=== PATIENT | female | born 1945 | race Caucasian/White ===

== ENCOUNTER 2017-11-28 16:01 | Inpatient (IN) | payer MEDICARE ==
[~2017-11-28] VITALS: Ht 154.9 cm; Wt 69.1 kg
[~2017-11-28 16:01] MED LIST: CANE-100; NAPR-1154 PO; NORCO10T PO; PRED20TA PO; [UNRECOGNIZED DRUG - REMARK]
[2017-11-28] MEDS ORDERED: ipratropium/albuterol 3ml nebule NEB ONE (16:10)
[2017-11-28] MEDS ORDERED: magnesium 2GM in 50ml NS 50 ML IV ONE (16:10)
[2017-11-28] MEDS ORDERED: methylPREDNISolone sod succ 125mg/2ml vial IV ONE (16:10)
[2017-11-28 16:46] LABS: BASOPHILS % (AUTO) 0.3 % (0-1); EOSINOPHILS # (AUTO) 0.2 X10'3 (0-0.9); EOSINOPHILS % (AUTO) 0.9 % (0-6); HEMATOCRIT 45.7 % (35.0-45.0); HEMOGLOBIN 15.5 g/dl (12.0-16.0); LYMPHOCYTES # (AUTO) 1.3 X10'3 (1.1-4.8); LYMPHOCYTES % (AUTO) 7.6 % (21-51); MEAN CORPUSCULAR HEMOGLOBIN 32.5 PG (27.0-31.0); MEAN CORPUSCULAR VOLUME 95.7 FL (78-98); MEAN PLATELET VOLUME 7.5 FL (7.4-10.4); MONOCYTES # (AUTO) 1.2 X10'3 (0-0.9); MONOCYTES % (AUTO) 7.2 % (2-12); NEUTROPHILS # (AUTO) 13.9 X10'3 (1.8-7.7); PLATELET COUNT 213 X10'3 (140-440); RED BLOOD COUNT 4.77 X10'6 (4.20-5.60); RED CELL DISTRIBUTION WIDTH 13.8 % (11.5-14.5); WHITE BLOOD COUNT 16.5 X10'3 (4.5-11.0)
[2017-11-28 16:57] LABS: INR 1.1 INR; PARTIAL THROMBOPLASTIN TIME 26 SECONDS (22-32); PROTHROMBIN TIME 10.9 SECONDS (9.0-12.0)
[2017-11-28 17:01] LABS: ALANINE AMINOTRANSFERASE 62 U/L (12-78); ALBUMIN 3.3 G/DL (3.4-5.0); ALBUMIN/GLOBULIN RATIO 0.8 (1.1-1.5); ALKALINE PHOSPHATASE 162 IU/L (46-116); ANION GAP 12 (8-16); ASPARTATE AMINO TRANSFERASE 36 U/L (10-37); BILIRUBIN,TOTAL 0.6 MG/DL (0.1-1.0); BLOOD UREA NITROGEN 15 MG/DL (7-18); BUN/CREATININE RATIO 18.8 (6.6-38.0); CALCIUM 9.3 MG/DL (8.5-10.1); CHLORIDE 104 MMOL/L (99-107); GLUCOSE 139 MG/DL (70-104); POTASSIUM 3.3 MMOL/L (3.5-5.1); SODIUM 143 MMOL/L (135-145); TOTAL CARBON DIOXIDE 26.8 MMOL/L (24-32); TOTAL PROTEIN 7.7 G/DL (6.4-8.2); eGFR 71 ML/MIN
[2017-11-28] MEDS ORDERED: ondansetron/PF 4mg/2ml inj IV PRN (18:20)
[2017-11-28] MEDS ORDERED: HYDROmorphone 2mg/ml vial IV PRN (18:20)
[2017-11-28] MEDS ORDERED: magnesium 4gm in 100ml NS 100 ML IV PRN (18:20)
[2017-11-28] MEDS ORDERED: mag hydrox/Alum hydrox/simeth 30ml oral suspension PO PRN (18:20)
[2017-11-28] MEDS ORDERED: albuterol 2.5 MG/3 ML nebule NEB PRN (18:20)
[2017-11-28] MEDS ORDERED: morphine 5 MG/ML injection IV PRN (18:20)
[2017-11-28] MEDS ORDERED: magnesium Cl slow-release 64mg tablet PO PRN (18:20)
[2017-11-28] MEDS ORDERED: potassium Cl 40MEQ/NS 500ml 500 ML IV PRN ×2 (18:20)
[2017-11-28] MEDS ORDERED: acetaminophen 325mg tablet PO PRN (18:20)
[2017-11-28] MEDS ORDERED: potassium Cl 20 mEq SR tablet PO PRN (18:20)
[2017-11-28] MEDS ORDERED: magnesium 2GM in 50ml NS 50 ML IV PRN (18:20)
[2017-11-28] MEDS ORDERED: magnesium hydroxide 30ml (MOM) UD suspension PO PRN (18:20)
[2017-11-28] MEDS ORDERED: LORazepam 2 mg/ml vial IV ONE (18:25)
[2017-11-28] MEDS ORDERED: albuterol 2.5 MG/3 ML nebule NEB ONE ×2 (18:25→21:05)
[2017-11-28 19:04] LABS: MAGNESIUM 1.5 MG/DL (1.5-2.4)
[2017-11-28] MEDS: methylPREDNISolone sod succ 125mg/2ml vial IV SCH (20:00)
[2017-11-28] MEDS: cefTRIAXone 1g/NS 100ml IVPB 100 ML IV SCH (20:47)
[2017-11-28] MEDS: potassium Cl 20 mEq SR tablet PO PRN (20:47)
[2017-11-28] MEDS ORDERED: temazepam 15mg capsule PO PRN (21:00)
[2017-11-28] MEDS ORDERED: potassium 10mEq/100ml NS w/LIDOcaine (10mg/bag) IV ONE (21:05)
[2017-11-28 22:30] VITALS: BP 164/74
[2017-11-29] MEDS ORDERED: LORazepam 1 MG tablet PO ONE (00:30)
[2017-11-29] MEDS: potassium Cl 20 mEq SR tablet PO PRN (01:38)
[2017-11-29] MEDS: HYDROcodone/acetaminophen 5mg/325mg tablet PO PRN ×2 (01:38→14:17)
[2017-11-29] MEDS: methylPREDNISolone sod succ 125mg/2ml vial IV SCH ×4 (01:39→20:26)
[2017-11-29] MEDS ORDERED: FLU VACC QS2017-18 36MOS UP/PF 60 MCG/0.5 ML SYRINGE IMVAC ONE (06:30)
[2017-11-29] MEDS ORDERED: pneumococcal 23-VAL P-sac vacc 25 mcg/0.5ml vial IMVAC ONE (06:30)
[2017-11-29 07:33] LABS: BASOPHILS % (AUTO) 0 % (0-1); EOSINOPHILS % (AUTO) 0 % (0-6); HEMATOCRIT 43.2 % (35.0-45.0); HEMOGLOBIN 14.9 g/dl (12.0-16.0); LYMPHOCYTES % (AUTO) 6.2 % (21-51); MEAN CORPUSCULAR HGB CONC 34.4 % (33.0-36.5); MEAN PLATELET VOLUME 7.9 FL (7.4-10.4); MONOCYTES # (AUTO) 0.2 X10'3 (0-0.9); MONOCYTES % (AUTO) 1.4 % (2-12); NEUTROPHILS # (AUTO) 15.2 X10'3 (1.8-7.7); NEUTROPHILS % (AUTO) 92.4 % (42-75); PLATELET COUNT 199 X10'3 (140-440); RED CELL DISTRIBUTION WIDTH 14.4 % (11.5-14.5); WHITE BLOOD COUNT 16.5 X10'3 (4.5-11.0)
[2017-11-29 07:46] LABS: ALBUMIN 2.8 G/DL (3.4-5.0); ANION GAP 8 (8-16); BLOOD UREA NITROGEN 18 MG/DL (7-18); BUN/CREATININE RATIO 25.7 (6.6-38.0); CHLORIDE 107 MMOL/L (99-107); GLUCOSE 138 MG/DL (70-104); POTASSIUM 4.8 MMOL/L (3.5-5.1); SODIUM 144 MMOL/L (135-145); TOTAL CARBON DIOXIDE 29.2 MMOL/L (24-32); eGFR 83 ML/MIN
[2017-11-29] MEDS ORDERED: cefTRIAXone 1g/NS 100ml IVPB 100 ML IV SCH (08:00)
[2017-11-29] MEDS ORDERED: enoxaparin 40mg/0.4ml syringe SQ SCH (08:00)
[2017-11-29] MEDS: K and/or MAG REPLACEMENT MC SCH (08:00)
[2017-11-29] MEDS: enoxaparin 40mg/0.4ml syringe SUBCUT SCH (08:47)
[2017-11-29 10:00] VITALS: BP 151/71
[2017-11-29] MEDS ORDERED: MONT10TA24 PO (15:18)
[2017-11-29] MEDS ORDERED: iohexol 350MG/ML 100ml bottle IV ONE (15:22)
[2017-11-29] MEDS ORDERED: SPIR100T3 PO (15:23)
[2017-11-29] MEDS ORDERED: AMLO-94 PO (15:24)
[2017-11-29] MEDS ORDERED: VALS40TA2 PO (15:25)
[2017-11-29] MEDS ORDERED: TIOT4MIS3 (15:30)
[2017-11-29] MEDS ORDERED: FLUT16SP2 BOTHNARES (15:32)
[2017-11-29 18:00] VITALS: BP 154/83
[2017-11-29] MEDS: azithromycin/NS 500mg/250ml 250 ML IV SCH (18:01)
[2017-11-29] MEDS: lactobacillus rhamnosus 10,000 MMU CELLS/CAPSULE PO SCH (18:01)
[2017-11-29] MEDS: LORazepam 0.5 MG tablet PO PRN (18:50)
[2017-11-29] MEDS: albuterol 2.5 MG/3 ML nebule NEB SCH ×2 (19:56→23:39)
[2017-11-29] MEDS: cefTRIAXone 1g/NS 100ml IVPB 100 ML IV SCH (20:26)
[2017-11-29 22:00] VITALS: BP 142/73
[2017-11-30] MEDS: methylPREDNISolone sod succ 125mg/2ml vial IV SCH ×4 (02:29→20:44)
[2017-11-30] MEDS: albuterol 2.5 MG/3 ML nebule NEB SCH ×6 (04:03→23:06)
[2017-11-30 06:00] VITALS: BP 139/75
[2017-11-30 06:20] LABS: BASOPHILS % (AUTO) 0 % (0-1); EOSINOPHILS # (AUTO) 0.2 X10'3 (0-0.9); EOSINOPHILS % (AUTO) 1.3 % (0-6); HEMATOCRIT 41.7 % (35.0-45.0); HEMOGLOBIN 14.6 g/dl (12.0-16.0); LYMPHOCYTES % (AUTO) 5.8 % (21-51); MEAN CORPUSCULAR HEMOGLOBIN 33.2 PG (27.0-31.0); MEAN CORPUSCULAR HGB CONC 34.9 % (33.0-36.5); MEAN CORPUSCULAR VOLUME 95.1 FL (78-98); MEAN PLATELET VOLUME 7.9 FL (7.4-10.4); MONOCYTES # (AUTO) 0.3 X10'3 (0-0.9); MONOCYTES % (AUTO) 1.9 % (2-12); NEUTROPHILS # (AUTO) 15.4 X10'3 (1.8-7.7); PLATELET COUNT 181 X10'3 (140-440); RED BLOOD COUNT 4.38 X10'6 (4.20-5.60); RED CELL DISTRIBUTION WIDTH 14.4 % (11.5-14.5); WHITE BLOOD COUNT 16.9 X10'3 (4.5-11.0)
[2017-11-30 07:27] LABS: ALBUMIN 2.8 G/DL (3.4-5.0); ANION GAP 11 (8-16); BLOOD UREA NITROGEN 21 MG/DL (7-18); CALCIUM 8.7 MG/DL (8.5-10.1); CHLORIDE 105 MMOL/L (99-107); GLUCOSE 208 MG/DL (70-104); MAGNESIUM 1.8 MG/DL (1.5-2.4); POTASSIUM 4.1 MMOL/L (3.5-5.1); SODIUM 142 MMOL/L (135-145); TOTAL CARBON DIOXIDE 25.7 MMOL/L (24-32); eGFR 83 ML/MIN
[2017-11-30] MEDS: azithromycin/NS 500mg/250ml 250 ML IV SCH (07:54)
[2017-11-30] MEDS: lactobacillus rhamnosus 10,000 MMU CELLS/CAPSULE PO SCH ×2 (07:55→17:41)
[2017-11-30] MEDS: K and/or MAG REPLACEMENT MC SCH (08:00)
[2017-11-30] MEDS: enoxaparin 40mg/0.4ml syringe SUBCUT SCH (08:05)
[2017-11-30 10:30] VITALS: BP 146/63
[2017-11-30 18:30] VITALS: BP 155/86
[2017-11-30] MEDS: HYDROcodone/acetaminophen 5mg/325mg tablet PO PRN (18:45)
[2017-11-30] MEDS: cefTRIAXone 1g/NS 100ml IVPB 100 ML IV SCH (20:44)
[2017-11-30] MEDS: LORazepam 0.5 MG tablet PO PRN (21:54)
[2017-11-30 22:00] VITALS: BP 146/64
[2017-12-01] MEDS: methylPREDNISolone sod succ 125mg/2ml vial IV SCH ×3 (01:36→14:15)
[2017-12-01] MEDS: albuterol 2.5 MG/3 ML nebule NEB SCH ×5 (03:00→20:39)
[2017-12-01 06:00] VITALS: BP 143/67
[2017-12-01] MEDS: lactobacillus rhamnosus 10,000 MMU CELLS/CAPSULE PO SCH ×2 (08:05→17:51)
[2017-12-01] MEDS: azithromycin/NS 500mg/250ml 250 ML IV SCH (08:06)
[2017-12-01] MEDS: enoxaparin 40mg/0.4ml syringe SUBCUT SCH (08:06)
[2017-12-01 09:13] LABS: BASOPHILS % (AUTO) 0 % (0-1); EOSINOPHILS # (AUTO) 0.1 X10'3 (0-0.9); EOSINOPHILS % (AUTO) 0.9 % (0-6); HEMATOCRIT 44.2 % (35.0-45.0); HEMOGLOBIN 14.9 g/dl (12.0-16.0); LYMPHOCYTES # (AUTO) 0.9 X10'3 (1.1-4.8); MEAN CORPUSCULAR HEMOGLOBIN 32.7 PG (27.0-31.0); MEAN CORPUSCULAR HGB CONC 33.7 % (33.0-36.5); MEAN CORPUSCULAR VOLUME 97.1 FL (78-98); MEAN PLATELET VOLUME 7.9 FL (7.4-10.4); MONOCYTES # (AUTO) 0.4 X10'3 (0-0.9); MONOCYTES % (AUTO) 2.6 % (2-12); NEUTROPHILS # (AUTO) 12.9 X10'3 (1.8-7.7); NEUTROPHILS % (AUTO) 90.5 % (42-75); PLATELET COUNT 198 X10'3 (140-440); RED BLOOD COUNT 4.55 X10'6 (4.20-5.60); RED CELL DISTRIBUTION WIDTH 14.1 % (11.5-14.5); WHITE BLOOD COUNT 14.3 X10'3 (4.5-11.0)
[2017-12-01 09:18] LABS: ALBUMIN 2.8 G/DL (3.4-5.0); ANION GAP 6 (8-16); BLOOD UREA NITROGEN 20 MG/DL (7-18); BUN/CREATININE RATIO 33.3 (6.6-38.0); CALCIUM 8.9 MG/DL (8.5-10.1); CHLORIDE 105 MMOL/L (99-107); GLUCOSE 172 MG/DL (70-104); POTASSIUM 4.3 MMOL/L (3.5-5.1); SODIUM 142 MMOL/L (135-145); TOTAL CARBON DIOXIDE 30.7 MMOL/L (24-32); eGFR > 90 ML/MIN
[2017-12-01] MEDS: K and/or MAG REPLACEMENT MC SCH (09:35)
[2017-12-01 10:00] VITALS: BP 139/69
[2017-12-01 18:30] VITALS: BP 146/52
[2017-12-01] MEDS: LORazepam 0.5 MG tablet PO PRN (19:10)
[2017-12-01] MEDS: methylPREDNISolone sod succ/PF 40mg inj. IV SCH (20:42)
[2017-12-01] MEDS: cefTRIAXone 1g/NS 100ml IVPB 100 ML IV SCH (20:43)
[2017-12-01 22:00] VITALS: BP 135/69
[2017-12-02] MEDS: albuterol 2.5 MG/3 ML nebule NEB SCH ×6 (00:21→23:07)
[2017-12-02] MEDS: methylPREDNISolone sod succ/PF 40mg inj. IV SCH ×3 (01:52→13:51)
[2017-12-02 06:00] VITALS: BP 132/82
[2017-12-02 06:01] LABS: BASOPHILS % (AUTO) 0 % (0-1); EOSINOPHILS % (AUTO) 0 % (0-6); HEMATOCRIT 41.5 % (35.0-45.0); HEMOGLOBIN 14.3 g/dl (12.0-16.0); LYMPHOCYTES # (AUTO) 0.5 X10'3 (1.1-4.8); LYMPHOCYTES % (AUTO) 5.1 % (21-51); MEAN CORPUSCULAR HEMOGLOBIN 32.9 PG (27.0-31.0); MEAN CORPUSCULAR HGB CONC 34.4 % (33.0-36.5); MEAN CORPUSCULAR VOLUME 95.5 FL (78-98); MEAN PLATELET VOLUME 7.6 FL (7.4-10.4); MONOCYTES # (AUTO) 0.3 X10'3 (0-0.9); MONOCYTES % (AUTO) 2.4 % (2-12); NEUTROPHILS # (AUTO) 9.9 X10'3 (1.8-7.7); NEUTROPHILS % (AUTO) 92.5 % (42-75); PLATELET COUNT 162 X10'3 (140-440); RED BLOOD COUNT 4.34 X10'6 (4.20-5.60); RED CELL DISTRIBUTION WIDTH 13.9 % (11.5-14.5); WHITE BLOOD COUNT 10.7 X10'3 (4.5-11.0)
[2017-12-02 06:25] LABS: ALBUMIN 2.5 G/DL (3.4-5.0); ANION GAP 6 (8-16); BLOOD UREA NITROGEN 21 MG/DL (7-18); BUN/CREATININE RATIO 26.3 (6.6-38.0); CALCIUM 8.4 MG/DL (8.5-10.1); CHLORIDE 105 MMOL/L (99-107); GLUCOSE 185 MG/DL (70-104); MAGNESIUM 2.1 MG/DL (1.5-2.4); POTASSIUM 4.5 MMOL/L (3.5-5.1); SODIUM 141 MMOL/L (135-145); TOTAL CARBON DIOXIDE 29.6 MMOL/L (24-32); eGFR 71 ML/MIN
[2017-12-02] MEDS: K and/or MAG REPLACEMENT MC SCH (08:00)
[2017-12-02] MEDS: lactobacillus rhamnosus 10,000 MMU CELLS/CAPSULE PO SCH ×2 (08:19→17:49)
[2017-12-02] MEDS: enoxaparin 40mg/0.4ml syringe SUBCUT SCH (08:21)
[2017-12-02] MEDS: azithromycin/NS 500mg/250ml 250 ML IV SCH (08:24)
[2017-12-02 10:00] VITALS: BP 132/92
[2017-12-02 14:00] VITALS: BP 109/68
[2017-12-02 18:30] VITALS: BP 123/90
[2017-12-02] MEDS: LORazepam 0.5 MG tablet PO PRN (20:35)
[2017-12-02] MEDS: cefTRIAXone 1g/NS 100ml IVPB 100 ML IV SCH (20:35)
[2017-12-02 22:00] VITALS: BP 146/75
[2017-12-03] MEDS: albuterol 2.5 MG/3 ML nebule NEB SCH ×3 (02:47→11:45)
[2017-12-03 06:00] VITALS: BP 147/73
[2017-12-03] MEDS: K and/or MAG REPLACEMENT MC SCH (07:38)
[2017-12-03] MEDS: lactobacillus rhamnosus 10,000 MMU CELLS/CAPSULE PO SCH (07:40)
[2017-12-03] MEDS: enoxaparin 40mg/0.4ml syringe SUBCUT SCH (07:41)
[2017-12-03] MEDS ORDERED: azithromycin 250mg tablet PO SCH (08:00)
[2017-12-03] MEDS ORDERED: predniSONE 20 mg tablet PO SCH (08:00)
[2017-12-03 10:00] VITALS: BP 172/57
[2017-12-03] MEDS ORDERED: AZI25OT PO (10:44)
[2017-12-03] MEDS ORDERED: PRED20TA PO (10:44)
[2017-12-03] MEDS ORDERED: ALBU2.5V7 NEB (10:50)
== END 2017-12-03 13:43 | disposition home health service (06) | DRG 871 ==
LOC: ER 16:05 → ED HOLD 18:16 → EDBEDREQTM 21:29 → ORTHO 4S 22:23
PROVIDERS: ADMIT Internal Medicine; ATTEND Family Medicine
PROC: B32T1ZZ Computerized Tomography (CT Scan) of Left Pulmonary Artery using Low Osmolar Contrast (ICD-10-PCS; principal; 2017-11-29)
PROC: B3201ZZ Computerized Tomography (CT Scan) of Thoracic Aorta using Low Osmolar Contrast (ICD-10-PCS; 2017-11-29)
PROC: B32S1ZZ Computerized Tomography (CT Scan) of Right Pulmonary Artery using Low Osmolar Contrast (ICD-10-PCS; 2017-11-29)
DX: A41.9 Sepsis, unspecified organism (principal); J18.9 Pneumonia, unspecified organism; J96.21 Acute and chronic respiratory failure with hypoxia; J44.0 Chronic obstructive pulmonary disease with (acute) lower respiratory infection; J44.1 Chronic obstructive pulmonary disease with (acute) exacerbation; E78.00 Pure hypercholesterolemia, unspecified; M19.90 Unspecified osteoarthritis, unspecified site; E87.6 Hypokalemia; R73.9 Hyperglycemia, unspecified; F41.9 Anxiety disorder, unspecified; I10 Essential (primary) hypertension; T38.0X5A Adverse effect of glucocorticoids and synthetic analogues, initial encounter; F17.210 Nicotine dependence, cigarettes, uncomplicated; Z90.710 Acquired absence of both cervix and uterus; Z88.6 Allergy status to analgesic agent; Y92.89 Other specified places as the place of occurrence of the external cause
CPT/HCPCS: 36415; 71045; 71275; 80048; 80053; 83735; 85025; 85610; 85730; 87070; 90732; 93005; 94640; 94760; 96365; 96375; 99285; J0456; J0696; J1650; J2060; J2920; J2930; J3475; J7030; J7512; Q2037; Q9967

== ENCOUNTER 2018-01-07 09:13 | Inpatient (IN) | payer MEDICARE ==
[~2018-01-07] VITALS: Ht 154.9 cm; Wt 78.8 kg
[~2018-01-07 09:13] MED LIST changes: +ALBU2.5V7 NEB; +AMLO-94 PO; +AZI25OT PO; +FLUT16SP2 BOTHNARES; +MONT10TA24 PO; +SPIR100T3 PO; +TIOT4MIS3; +VALS40TA2 PO; -[UNRECOGNIZED DRUG - REMARK]; +etomidate 2mg/ml inj. ONE
[2018-01-07] MEDS ORDERED: normal saline 1000ML IV soln IVB ONE ×2 (09:35→18:20)
[2018-01-07] MEDS ORDERED: normal saline 1000ml 1,000 ML IV ONE (09:35)
[2018-01-07] MEDS ORDERED: methylPREDNISolone sod succ 125mg/2ml vial IV ONE (09:35)
[2018-01-07] MEDS ORDERED: albuterol 2.5 MG/3 ML nebule NEB ONE (09:35)
[2018-01-07] MEDS ORDERED: PRED10TA PO (09:40)
[2018-01-07] MEDS ORDERED: DOXY-200 PO (09:40)
[2018-01-07] MEDS ORDERED: AMLO10TA4 PO (09:40)
[2018-01-07 09:51] LABS: BASOPHILS % (AUTO) 0.3 % (0-1); EOSINOPHILS # (AUTO) 0.4 X10'3 (0-0.9); EOSINOPHILS % (AUTO) 3.3 % (0-6); HEMOGLOBIN 15.4 g/dl (12.0-16.0); LYMPHOCYTES # (AUTO) 1.6 X10'3 (1.1-4.8); LYMPHOCYTES % (AUTO) 11.9 % (21-51); MEAN CORPUSCULAR VOLUME 94.2 FL (78-98); MEAN PLATELET VOLUME 7.5 FL (7.4-10.4); MONOCYTES # (AUTO) 0.4 X10'3 (0-0.9); MONOCYTES % (AUTO) 3.1 % (2-12); NEUTROPHILS # (AUTO) 11.1 X10'3 (1.8-7.7); NEUTROPHILS % (AUTO) 81.4 % (42-75); PLATELET COUNT 199 X10'3 (140-440); RED BLOOD COUNT 4.67 X10'6 (4.20-5.60); RED CELL DISTRIBUTION WIDTH 13.7 % (11.5-14.5); WHITE BLOOD COUNT 13.6 X10'3 (4.5-11.0)
[2018-01-07] MEDS ORDERED: nitroGLYCERIN 0.2mg/hour patch TD ONE (09:55)
[2018-01-07] MEDS ORDERED: amLODIPine 5mg tablet PO ONE (09:55)
[2018-01-07 09:58] LABS: CHLORIDE 103 MMOL/L (99-107); POTASSIUM 4.1 MMOL/L (3.5-5.1); SODIUM 142 MMOL/L (135-145)
[2018-01-07 10:01] LABS: PARTIAL THROMBOPLASTIN TIME 29 SECONDS (22-32); PROTHROMBIN TIME 10.7 SECONDS (9.0-12.0)
[2018-01-07] MEDS ORDERED: proCHLORperazine 10 MG/2 ml inj IV ONE (10:05)
[2018-01-07 10:11] LABS: ALANINE AMINOTRANSFERASE 47 U/L (12-78); ALBUMIN 3.7 G/DL (3.4-5.0); ALBUMIN/GLOBULIN RATIO 0.8 (1.1-1.5); ALKALINE PHOSPHATASE 136 IU/L (46-116); ANION GAP 8 (8-16); ASPARTATE AMINO TRANSFERASE 31 U/L (10-37); BILIRUBIN,TOTAL 0.7 MG/DL (0.1-1.0); BLOOD UREA NITROGEN 13 MG/DL (7-18); CALCIUM 9.6 MG/DL (8.5-10.1); CREATININE 0.62 MG/DL (0.40-0.90); GLUCOSE 177 MG/DL (70-104); MAGNESIUM 1.8 MG/DL (1.5-2.4); PHOSPHORUS 4.5 MG/DL (2.3-4.5); TOTAL CARBON DIOXIDE 31.3 MMOL/L (24-32); TOTAL PROTEIN 8.3 G/DL (6.4-8.2); eGFR > 90 ML/MIN
[2018-01-07] MEDS ORDERED: albuterol 2.5 MG/3 ML nebule CONTNEB PRN (10:20)
[2018-01-07 10:25] LABS: ABG BASE EXCESS -1.4 mmol/L (-2.0-3.0); ABG HCO3 26.8 mmol/L (22.0-26.0); ABG OXYGEN SATURATION 96.4 % (95-98); ABG PCO2 (T) 59.2 mmHg (32.0-45.0); ABG PH (T) 7.274 (7.350-7.450); ABG PO2 (T) 95.8 mmHg (83-108); FCOHb 0.5 % (0.5-1.5); FLOW 15 L/min; FMetHb 0.2 % (0.3-1.12); FO2Hb 95.7 % (94-100); TOTAL HEMOGLOBIN 15.8 G/dl (12.0-16.0)
[2018-01-07] MEDS ORDERED: midazolam 2 mg/2 ml injection IV ONE (10:35)
[2018-01-07] MEDS: midazolam 100mg in NS 100ml 100 ML IV PRN ×2 (11:05→12:20)
[2018-01-07] MEDS ORDERED: fentaNYL/NS/PF 2,500mcg/250ml 250 ML IV PRN (11:15)
[2018-01-07 11:20] LABS: CLARITY,URINE CLOUDY (Clear); COLOR,URINE YELLOW (Yellow); GLUCOSE, URINE NEGATIVE (Neg); KETONES,URINE NEGATIVE (Neg); LEUKOCYTE ESTERASE ,URINE NEGATIVE (Neg); NITRITES, URINE NEGATIVE (Neg); OCCULT BLOOD,URINE LARGE (Neg); PH,URINE 5.5 (4.8-8.0); PROTEIN,URINE >=300 mg/dl (Neg); UROBILINOGEN,URINE 0.2 E.U/dL (0.2-1.0)
[2018-01-07] MEDS ORDERED: azithromycin/NS 500mg/250ml 250 ML IV ONE (11:20)
[2018-01-07] MEDS ORDERED: CefTRIAXone 2gm/NS 100ml IVPB 100 ML IV ONE (11:20)
[2018-01-07 11:21] LABS: UA COLLECTION TYPE CLN CATCH MIDSTREAM
[2018-01-07] MEDS ORDERED: acetaminophen 325mg tablet PO PRN (11:30)
[2018-01-07] MEDS ORDERED: sodium phosphate inj. 30 MMOL in dextrose 5%-water 250 ML IV PRN (11:30)
[2018-01-07] MEDS ORDERED: sodium phosphate inj. 15 MMOL in dextrose 5%-water 150 ML IV PRN (11:30)
[2018-01-07] MEDS ORDERED: midazolam 100mg in NS 100ml 100 ML IV PRN (11:30)
[2018-01-07] MEDS ORDERED: magnesium hydroxide 30ml (MOM) UD suspension PO PRN (11:30)
[2018-01-07] MEDS ORDERED: magnesium Cl slow-release 64mg tablet PO PRN (11:30)
[2018-01-07] MEDS ORDERED: magnesium 4gm in 100ml NS 100 ML IV PRN (11:30)
[2018-01-07] MEDS ORDERED: bisacodyl 10mg suppository rectal RC PRN (11:30)
[2018-01-07] MEDS ORDERED: magnesium 2GM in 50ml NS 50 ML IV PRN (11:30)
[2018-01-07] MEDS ORDERED: potassium Cl 20 mEq SR tablet PO PRN ×2 (11:30)
[2018-01-07] MEDS ORDERED: ipratropium/albuterol 3ml nebule NEB PRN ×2 (11:30)
[2018-01-07] MEDS ORDERED: Neutra Phos packet PO PRN (11:30)
[2018-01-07] MEDS ORDERED: FENTANYL-0.9 % NACL/PF 100 ML IV PRN (11:30)
[2018-01-07] MEDS ORDERED: fentaNYL/PF 50MCG/1 ML 2ML syringe ONE (11:32)
[2018-01-07 11:39] LABS: MUCUS STRANDS FEW /LPF (Neg); SQUAMOUS EPITHELIAL CELL,UR MODERATE /LPF (FEW)
[2018-01-07] MEDS ORDERED: FENTANYL-0.9 % NACL/PF 100 ML IV ONE (11:39)
[2018-01-07 11:45] LABS: BACTERIA,URINE 4+ /HPF (Neg); WBC,URINE 0-4 /HPF (0-4)
[2018-01-07] MEDS ORDERED: levoFLOXACIN-Levaquin 500mg/D5 100 ML IV ONE (11:45)
[2018-01-07] MEDS: normal saline 1000ml 1,000 ML IV SCH (11:48)
[2018-01-07] MEDS: FENTANYL-0.9 % NACL/PF 100 ML IV PRN ×4 (11:52→20:05)
[2018-01-07] MEDS: methylPREDNISolone sod succ 125mg/2ml vial IV SCH ×2 (14:09→21:23)
[2018-01-07] MEDS: ipratropium/albuterol 3ml nebule NEB SCH ×3 (15:00→22:48)
[2018-01-07] MEDS: heparin, porcine 5000 units/ml vial SQ SCH (21:24)
[2018-01-07 22:00] VITALS: BP 132/59
[2018-01-07 23:00] VITALS: BP 118/58
[2018-01-07 23:50] VITALS: BP 109/45
[2018-01-08] VITALS (24 sets, daily range): BP systolic 97–144; BP diastolic 44–80
[2018-01-08] MEDS: cefepime 1GM/NS ADD-VANTAGE 100 ML IV SCH ×3 (00:48→15:15)
[2018-01-08] MEDS: normal saline 1000ml 1,000 ML IV SCH ×2 (00:48→14:10)
[2018-01-08] MEDS: methylPREDNISolone sod succ 125mg/2ml vial IV SCH ×4 (01:35→20:42)
[2018-01-08 02:26] LABS: ABG BASE EXCESS -2.7 mmol/L (-2.0-3.0); ABG HCO3 21.8 mmol/L (22.0-26.0); ABG OXYGEN SATURATION 90.3 % (95-98); ABG PCO2 (T) 36.5 mmHg (32.0-45.0); ABG PH (T) 7.392 (7.350-7.450); ABG PO2 (T) 59.7 mmHg (83-108); ALLEN'S TEST Positive; FCOHb 0.1 % (0.5-1.5); FMetHb 0.2 % (0.3-1.12); MINUTE VOLUME 7 L/min; PATIENT TEMPERATURE 36.7; PEEP 5 cm H2O; RESPIRATORY RATE 16 b/min; RESPIRATORY RATE (OBSERVED) 18 b/min; TOTAL HEMOGLOBIN 13.3 G/dl (12.0-16.0)
[2018-01-08] MEDS: ipratropium/albuterol 3ml nebule NEB SCH ×6 (03:47→23:05)
[2018-01-08 05:17] LABS: BASOPHILS % (AUTO) 0.1 % (0-1); EOSINOPHILS # (AUTO) 0.2 X10'3 (0-0.9); EOSINOPHILS % (AUTO) 1.5 % (0-6); HEMATOCRIT 37.3 % (35.0-45.0); HEMOGLOBIN 13.1 g/dl (12.0-16.0); LYMPHOCYTES # (AUTO) 0.9 X10'3 (1.1-4.8); LYMPHOCYTES % (AUTO) 8.8 % (21-51); MEAN CORPUSCULAR HEMOGLOBIN 33.3 PG (27.0-31.0); MEAN CORPUSCULAR HGB CONC 35.2 % (33.0-36.5); MEAN CORPUSCULAR VOLUME 94.6 FL (78-98); MEAN PLATELET VOLUME 7.9 FL (7.4-10.4); MONOCYTES # (AUTO) 0.1 X10'3 (0-0.9); MONOCYTES % (AUTO) 1.1 % (2-12); NEUTROPHILS # (AUTO) 9.5 X10'3 (1.8-7.7); NEUTROPHILS % (AUTO) 88.5 % (42-75); PLATELET COUNT 155 X10'3 (140-440); RED BLOOD COUNT 3.94 X10'6 (4.20-5.60); RED CELL DISTRIBUTION WIDTH 13.6 % (11.5-14.5); WHITE BLOOD COUNT 10.7 X10'3 (4.5-11.0)
[2018-01-08 05:33] LABS: ALANINE AMINOTRANSFERASE 36 U/L (12-78); ALBUMIN 2.9 G/DL (3.4-5.0); ALBUMIN/GLOBULIN RATIO 0.7 (1.1-1.5); ALKALINE PHOSPHATASE 99 IU/L (46-116); ANION GAP 13 (8-16); ASPARTATE AMINO TRANSFERASE 22 U/L (10-37); BILIRUBIN,TOTAL 0.4 MG/DL (0.1-1.0); BLOOD UREA NITROGEN 24 MG/DL (7-18); BUN/CREATININE RATIO 27.9 (6.6-38.0); CALCIUM 8.6 MG/DL (8.5-10.1); CHLORIDE 110 MMOL/L (99-107); CREATININE 0.86 MG/DL (0.40-0.90); GLUCOSE 152 MG/DL (70-104); MAGNESIUM 1.6 MG/DL (1.5-2.4); PHOSPHORUS 3.8 MG/DL (2.3-4.5); POTASSIUM 4.1 MMOL/L (3.5-5.1); SODIUM 146 MMOL/L (135-145); TOTAL CARBON DIOXIDE 23.4 MMOL/L (24-32); TOTAL PROTEIN 6.8 G/DL (6.4-8.2); eGFR 65 ML/MIN
[2018-01-08] MEDS: pantoprazole 40 MG vial IV SCH (07:16)
[2018-01-08] MEDS: heparin, porcine 5000 units/ml vial SQ SCH ×2 (07:18→20:43)
[2018-01-08] MEDS: levoFLOXACIN-Levaquin 500mg/D5 100 ML IV SCH (07:20)
[2018-01-08] MEDS: FENTANYL-0.9 % NACL/PF 100 ML IV PRN (07:31)
[2018-01-08] MEDS: ondansetron/PF 4mg/2ml inj IV PRN (08:55)
[2018-01-08] MEDS ORDERED: furosemide 20 MG/2 ML vial IV ONE (10:25)
[2018-01-08] MEDS ORDERED: normal saline 1000ml 1,000 ML IV ONE (10:25)
[2018-01-08] MEDS ORDERED: [UNRECOGNIZED DRUG - OTHER] SCH (11:20)
[2018-01-08] MEDS ORDERED: OLODATEROL HCL SCH (11:20)
[2018-01-08] MEDS ORDERED: TIOTROPIUM BR SCH (11:20)
[2018-01-08 13:33] LABS: PREALBUMIN 23.3 MG/DL (19-36)
[2018-01-08] MEDS: mineral oil/petrolatum ophthal oint EACHEYE SCH ×2 (15:13→20:44)
[2018-01-08] MEDS: montelukast 10mg tablet PO SCH (20:43)
[2018-01-08] MEDS: lactobacillus rhamnosus 10,000 MMU CELLS/CAPSULE PO SCH (20:43)
[2018-01-09] VITALS (23 sets, daily range): BP systolic 116–193; BP diastolic 51–96
[2018-01-09] MEDS: cefepime 1GM/NS ADD-VANTAGE 100 ML IV SCH ×3 (00:02→16:59)
[2018-01-09] MEDS: mineral oil/petrolatum ophthal oint EACHEYE SCH ×4 (02:31→20:00)
[2018-01-09] MEDS: methylPREDNISolone sod succ 125mg/2ml vial IV SCH ×4 (02:31→20:40)
[2018-01-09] MEDS: ipratropium/albuterol 3ml nebule NEB SCH ×5 (03:29→21:17)
[2018-01-09] MEDS: normal saline 1000ml 1,000 ML IV SCH ×2 (03:30→16:50)
[2018-01-09 04:06] LABS: ABG BASE EXCESS -1.8 mmol/L (-2.0-3.0); ABG HCO3 23.4 mmol/L (22.0-26.0); ABG OXYGEN SATURATION 95.1 % (95-98); ABG PCO2 (T) 39.8 mmHg (32.0-45.0); ABG PH (T) 7.384 (7.350-7.450); ABG PO2 (T) 76.2 mmHg (83-108); ALLEN'S TEST Positive; FCOHb 0.3 % (0.5-1.5); FMetHb 0.1 % (0.3-1.12); FO2Hb 94.7 % (94-100); MINUTE VOLUME 8 L/min; PATIENT TEMPERATURE 36.2; PEEP 5 cm H2O; RESPIRATORY RATE 18 b/min; RESPIRATORY RATE (OBSERVED) 18 b/min; TOTAL HEMOGLOBIN 12.9 G/dl (12.0-16.0)
[2018-01-09 05:56] LABS: BASOPHILS % (AUTO) 0 % (0-1); EOSINOPHILS # (AUTO) 0.2 X10'3 (0-0.9); EOSINOPHILS % (AUTO) 1.6 % (0-6); HEMATOCRIT 36.2 % (35.0-45.0); HEMOGLOBIN 12.7 g/dl (12.0-16.0); LYMPHOCYTES # (AUTO) 0.8 X10'3 (1.1-4.8); LYMPHOCYTES % (AUTO) 5.3 % (21-51); MEAN CORPUSCULAR HEMOGLOBIN 33.2 PG (27.0-31.0); MEAN PLATELET VOLUME 8.1 FL (7.4-10.4); MONOCYTES # (AUTO) 0.4 X10'3 (0-0.9); MONOCYTES % (AUTO) 2.8 % (2-12); NEUTROPHILS # (AUTO) 13.5 X10'3 (1.8-7.7); NEUTROPHILS % (AUTO) 90.3 % (42-75); PLATELET COUNT 154 X10'3 (140-440); RED BLOOD COUNT 3.81 X10'6 (4.20-5.60); RED CELL DISTRIBUTION WIDTH 14.2 % (11.5-14.5); WHITE BLOOD COUNT 14.9 X10'3 (4.5-11.0)
[2018-01-09 06:23] LABS: ALANINE AMINOTRANSFERASE 33 U/L (12-78); ALBUMIN 2.9 G/DL (3.4-5.0); ALBUMIN/GLOBULIN RATIO 0.8 (1.1-1.5); ALKALINE PHOSPHATASE 83 IU/L (46-116); ANION GAP 9 (8-16); ASPARTATE AMINO TRANSFERASE 15 U/L (10-37); BILIRUBIN,TOTAL 0.3 MG/DL (0.1-1.0); BLOOD UREA NITROGEN 40 MG/DL (7-18); BUN/CREATININE RATIO 48.8 (6.6-38.0); CALCIUM 8.4 MG/DL (8.5-10.1); CHLORIDE 109 MMOL/L (99-107); CREATININE 0.82 MG/DL (0.40-0.90); GLUCOSE 129 MG/DL (70-104); MAGNESIUM 1.9 MG/DL (1.5-2.4); PHOSPHORUS 3.7 MG/DL (2.3-4.5); POTASSIUM 4.2 MMOL/L (3.5-5.1); SODIUM 142 MMOL/L (135-145); TOTAL CARBON DIOXIDE 23.8 MMOL/L (24-32); TOTAL PROTEIN 6.7 G/DL (6.4-8.2); eGFR 69 ML/MIN
[2018-01-09] MEDS: pantoprazole 40 MG vial IV SCH (07:07)
[2018-01-09] MEDS: amLODIPine 5mg tablet PO SCH (07:08)
[2018-01-09] MEDS: heparin, porcine 5000 units/ml vial SQ SCH ×2 (07:08→20:40)
[2018-01-09] MEDS: levoFLOXACIN-Levaquin 500mg/D5 100 ML IV SCH (07:08)
[2018-01-09] MEDS: lactobacillus rhamnosus 10,000 MMU CELLS/CAPSULE PO SCH ×2 (07:08→20:41)
[2018-01-09] MEDS: fluticasone nasal spray 16GM bottle NS SCH (07:09)
[2018-01-09] MEDS: spironolactone 25 MG tablet PO SCH (09:02)
[2018-01-09] MEDS ORDERED: morphine/NS 100mg/100ml bag 100 ML IV SCH (11:10)
[2018-01-09] MEDS ORDERED: lactulose 20gm/30ml cup PO PRN (11:30)
[2018-01-09] MEDS ORDERED: racepinephrine 11.25mg/0.5ml nebule NEB PRN (11:30)
[2018-01-09] MEDS: ondansetron/PF 4mg/2ml inj IV PRN (18:51)
[2018-01-09] MEDS: montelukast 10mg tablet PO SCH (20:40)
[2018-01-09] MEDS: hydrALAZINE 20mg/ml inj. IV PRN (22:00)
[2018-01-10] VITALS (24 sets, daily range): BP systolic 145–215; BP diastolic 55–104
[2018-01-10] MEDS: cefepime 1GM/NS ADD-VANTAGE 100 ML IV SCH ×4 (01:19→23:47)
[2018-01-10] MEDS: methylPREDNISolone sod succ 125mg/2ml vial IV SCH ×4 (02:48→19:49)
[2018-01-10] MEDS: ipratropium/albuterol 3ml nebule NEB SCH ×4 (02:49→20:55)
[2018-01-10] MEDS: hydrALAZINE 20mg/ml inj. IV PRN (04:25)
[2018-01-10] MEDS: ondansetron/PF 4mg/2ml inj IV PRN ×2 (05:35→11:41)
[2018-01-10] MEDS: normal saline 1000ml 1,000 ML IV SCH ×2 (06:10→19:30)
[2018-01-10 06:36] LABS: BASOPHILS % (AUTO) 0 % (0-1); EOSINOPHILS % (AUTO) 0 % (0-6); HEMATOCRIT 40.6 % (35.0-45.0); HEMOGLOBIN 14.2 g/dl (12.0-16.0); LYMPHOCYTES # (AUTO) 0.6 X10'3 (1.1-4.8); LYMPHOCYTES % (AUTO) 3.8 % (21-51); MEAN CORPUSCULAR HGB CONC 34.9 % (33.0-36.5); MEAN CORPUSCULAR VOLUME 94.6 FL (78-98); MEAN PLATELET VOLUME 8.1 FL (7.4-10.4); MONOCYTES # (AUTO) 0.3 X10'3 (0-0.9); MONOCYTES % (AUTO) 1.7 % (2-12); NEUTROPHILS # (AUTO) 14.3 X10'3 (1.8-7.7); NEUTROPHILS % (AUTO) 94.5 % (42-75); PLATELET COUNT 166 X10'3 (140-440); RED BLOOD COUNT 4.29 X10'6 (4.20-5.60); RED CELL DISTRIBUTION WIDTH 13.9 % (11.5-14.5); WHITE BLOOD COUNT 15.1 X10'3 (4.5-11.0)
[2018-01-10 06:57] LABS: ALANINE AMINOTRANSFERASE 34 U/L (12-78); ALBUMIN 3.1 G/DL (3.4-5.0); ALBUMIN/GLOBULIN RATIO 0.8 (1.1-1.5); ALKALINE PHOSPHATASE 88 IU/L (46-116); ANION GAP 8 (8-16); ASPARTATE AMINO TRANSFERASE 20 U/L (10-37); BILIRUBIN,TOTAL 0.5 MG/DL (0.1-1.0); BLOOD UREA NITROGEN 28 MG/DL (7-18); BUN/CREATININE RATIO 48.3 (6.6-38.0); CALCIUM 9.1 MG/DL (8.5-10.1); CHLORIDE 108 MMOL/L (99-107); CREATININE 0.58 MG/DL (0.40-0.90); GLUCOSE 143 MG/DL (70-104); PHOSPHORUS 2.9 MG/DL (2.3-4.5); POTASSIUM 4.5 MMOL/L (3.5-5.1); SODIUM 145 MMOL/L (135-145); TOTAL CARBON DIOXIDE 29.5 MMOL/L (24-32); TOTAL PROTEIN 7.2 G/DL (6.4-8.2); eGFR > 90 ML/MIN
[2018-01-10] MEDS: spironolactone 25 MG tablet PO SCH (08:16)
[2018-01-10] MEDS: pantoprazole 40 MG vial IV SCH (08:16)
[2018-01-10] MEDS: heparin, porcine 5000 units/ml vial SQ SCH ×2 (08:16→19:49)
[2018-01-10] MEDS: levoFLOXACIN-Levaquin 500mg/D5 100 ML IV SCH (08:16)
[2018-01-10] MEDS: amLODIPine 5mg tablet PO SCH (08:17)
[2018-01-10] MEDS: fluticasone nasal spray 16GM bottle NS SCH (08:17)
[2018-01-10] MEDS: lactobacillus rhamnosus 10,000 MMU CELLS/CAPSULE PO SCH ×2 (08:17→19:49)
[2018-01-10] MEDS: acetaminophen 325mg tablet PO PRN (08:18)
[2018-01-10] MEDS: ipratropium/albuterol 3ml nebule NEB PRN ×2 (13:15→18:57)
[2018-01-10] MEDS: LORazepam 2 mg/ml vial IV PRN ×2 (14:41→20:29)
[2018-01-10] MEDS: montelukast 10mg tablet PO SCH (19:49)
[2018-01-11] VITALS (19 sets, daily range): BP systolic 135–181; BP diastolic 61–74
[2018-01-11] MEDS: ipratropium/albuterol 3ml nebule NEB SCH ×4 (02:13→21:28)
[2018-01-11] MEDS: methylPREDNISolone sod succ 125mg/2ml vial IV SCH ×4 (02:20→20:08)
[2018-01-11] MEDS: acetaminophen 325mg tablet PO PRN ×2 (05:41→16:33)
[2018-01-11 05:55] LABS: BASOPHILS % (AUTO) 0 % (0-1); EOSINOPHILS % (AUTO) 0 % (0-6); HEMATOCRIT 39.4 % (35.0-45.0); HEMOGLOBIN 13.9 g/dl (12.0-16.0); LYMPHOCYTES # (AUTO) 0.6 X10'3 (1.1-4.8); LYMPHOCYTES % (AUTO) 6.4 % (21-51); MEAN CORPUSCULAR HEMOGLOBIN 33.2 PG (27.0-31.0); MEAN CORPUSCULAR HGB CONC 35.4 % (33.0-36.5); MEAN CORPUSCULAR VOLUME 93.9 FL (78-98); MEAN PLATELET VOLUME 7.8 FL (7.4-10.4); MONOCYTES # (AUTO) 0.3 X10'3 (0-0.9); MONOCYTES % (AUTO) 3.1 % (2-12); NEUTROPHILS # (AUTO) 7.9 X10'3 (1.8-7.7); NEUTROPHILS % (AUTO) 90.5 % (42-75); PLATELET COUNT 151 X10'3 (140-440); RED BLOOD COUNT 4.19 X10'6 (4.20-5.60); RED CELL DISTRIBUTION WIDTH 14.4 % (11.5-14.5); WHITE BLOOD COUNT 8.8 X10'3 (4.5-11.0)
[2018-01-11 06:29] LABS: ALANINE AMINOTRANSFERASE 47 U/L (12-78); ALBUMIN 2.8 G/DL (3.4-5.0); ALBUMIN/GLOBULIN RATIO 0.7 (1.1-1.5); ALKALINE PHOSPHATASE 81 IU/L (46-116); ANION GAP 6 (8-16); ASPARTATE AMINO TRANSFERASE 27 U/L (10-37); BILIRUBIN,TOTAL 0.5 MG/DL (0.1-1.0); BLOOD UREA NITROGEN 32 MG/DL (7-18); BUN/CREATININE RATIO 53.3 (6.6-38.0); CALCIUM 8.9 MG/DL (8.5-10.1); CHLORIDE 106 MMOL/L (99-107); GLUCOSE 167 MG/DL (70-104); MAGNESIUM 2.1 MG/DL (1.5-2.4); PHOSPHORUS 3.2 MG/DL (2.3-4.5); POTASSIUM 4.1 MMOL/L (3.5-5.1); SODIUM 143 MMOL/L (135-145); TOTAL CARBON DIOXIDE 31.2 MMOL/L (24-32); TOTAL PROTEIN 6.7 G/DL (6.4-8.2); eGFR > 90 ML/MIN
[2018-01-11] MEDS: ipratropium/albuterol 3ml nebule NEB PRN ×3 (07:07→23:42)
[2018-01-11] MEDS: levoFLOXACIN-Levaquin 500mg/D5 100 ML IV SCH (08:00)
[2018-01-11] MEDS: spironolactone 25 MG tablet PO SCH (08:02)
[2018-01-11] MEDS: amLODIPine 5mg tablet PO SCH (08:02)
[2018-01-11] MEDS: lactobacillus rhamnosus 10,000 MMU CELLS/CAPSULE PO SCH ×2 (08:02→20:08)
[2018-01-11] MEDS: pantoprazole 40 MG vial IV SCH (08:03)
[2018-01-11] MEDS: heparin, porcine 5000 units/ml vial SQ SCH ×2 (08:03→20:09)
[2018-01-11] MEDS: cefepime 1GM/NS ADD-VANTAGE 100 ML IV SCH (08:56)
[2018-01-11] MEDS: fluticasone nasal spray 16GM bottle NS SCH (08:57)
[2018-01-11] MEDS ORDERED: dextrose 50%-water 50ml dispensing syringe IV PRN ×2 (19:00)
[2018-01-11] MEDS ORDERED: dextrose ORAL solution 15 GM/59 ML bottle PO PRN ×2 (19:00)
[2018-01-11] MEDS ORDERED: MESSAGE TO PHARMACY PO ONE (19:00)
[2018-01-11] MEDS ORDERED: glucagon, human recombinant 1mg kit SUBCUT PRN (19:00)
[2018-01-11] MEDS: LORazepam 2 mg/ml vial IV PRN (20:05)
[2018-01-11] MEDS: montelukast 10mg tablet PO SCH (20:08)
[2018-01-11] MEDS: insulin glargine (Lantus) pen - multi-dose SQ SCH (21:00)
[2018-01-11] MEDS: normal saline 1000ml 1,000 ML IV SCH (22:10)
[2018-01-12] MEDS: methylPREDNISolone sod succ 125mg/2ml vial IV SCH ×4 (02:34→20:52)
[2018-01-12 03:00] VITALS: BP 147/56
[2018-01-12] MEDS: ipratropium/albuterol 3ml nebule NEB SCH ×4 (03:20→19:57)
[2018-01-12] MEDS: normal saline 1000ml 1,000 ML IV SCH (05:10)
[2018-01-12] MEDS: acetaminophen 325mg tablet PO PRN (05:14)
[2018-01-12 06:00] VITALS: BP 155/64
[2018-01-12 06:25] LABS: BASOPHILS % (AUTO) 0.1 % (0-1); EOSINOPHILS % (AUTO) 0 % (0-6); HEMATOCRIT 38.6 % (35.0-45.0); HEMOGLOBIN 13.5 g/dl (12.0-16.0); LYMPHOCYTES # (AUTO) 0.5 X10'3 (1.1-4.8); LYMPHOCYTES % (AUTO) 5.7 % (21-51); MEAN CORPUSCULAR HEMOGLOBIN 33.2 PG (27.0-31.0); MEAN CORPUSCULAR VOLUME 94.7 FL (78-98); MONOCYTES # (AUTO) 0.5 X10'3 (0-0.9); NEUTROPHILS # (AUTO) 8.5 X10'3 (1.8-7.7); NEUTROPHILS % (AUTO) 89.2 % (42-75); PLATELET COUNT 136 X10'3 (140-440); RED BLOOD COUNT 4.07 X10'6 (4.20-5.60); RED CELL DISTRIBUTION WIDTH 13.8 % (11.5-14.5); WHITE BLOOD COUNT 9.5 X10'3 (4.5-11.0)
[2018-01-12 06:51] LABS: ALANINE AMINOTRANSFERASE 75 U/L (12-78); ALBUMIN 2.6 G/DL (3.4-5.0); ALBUMIN/GLOBULIN RATIO 0.8 (1.1-1.5); ALKALINE PHOSPHATASE 78 IU/L (46-116); ANION GAP 7 (8-16); ASPARTATE AMINO TRANSFERASE 50 U/L (10-37); BILIRUBIN,TOTAL 0.5 MG/DL (0.1-1.0); BLOOD UREA NITROGEN 26 MG/DL (7-18); BUN/CREATININE RATIO 45.6 (6.6-38.0); CALCIUM 8.6 MG/DL (8.5-10.1); CHLORIDE 106 MMOL/L (99-107); CREATININE 0.57 MG/DL (0.40-0.90); GLUCOSE 165 MG/DL (70-104); MAGNESIUM 1.9 MG/DL (1.5-2.4); PHOSPHORUS 2.8 MG/DL (2.3-4.5); POTASSIUM 4.1 MMOL/L (3.5-5.1); PREALBUMIN 29.7 MG/DL (19-36); SODIUM 142 MMOL/L (135-145); TOTAL CARBON DIOXIDE 28.8 MMOL/L (24-32); eGFR > 90 ML/MIN
[2018-01-12] MEDS: amLODIPine 5mg tablet PO SCH (07:22)
[2018-01-12] MEDS: pantoprazole 40mg Tablet.DR PO SCH (07:23)
[2018-01-12] MEDS: fluticasone nasal spray 16GM bottle NS SCH (07:24)
[2018-01-12] MEDS: heparin, porcine 5000 units/ml vial SQ SCH ×2 (07:24→20:52)
[2018-01-12] MEDS ORDERED: pantoprazole 40mg Tablet.DR PO SCH (07:30)
[2018-01-12] MEDS: lactobacillus rhamnosus 10,000 MMU CELLS/CAPSULE PO SCH ×2 (08:00→20:52)
[2018-01-12] MEDS ORDERED: methylnaltrexone br 12mg/0.6ml inj***SubQ only SQ SCH (08:00)
[2018-01-12] MEDS: spironolactone 25 MG tablet PO SCH (09:29)
[2018-01-12] MEDS: insulin Lispro (HumaLOG) vial - multi-dose SQ SCH ×2 (09:48→13:35)
[2018-01-12 11:00] VITALS: BP 143/54
[2018-01-12] MEDS: levoFLOXACIN 500mg tablet PO SCH (11:04)
[2018-01-12 15:00] VITALS: BP 139/55
[2018-01-12 19:00] VITALS: BP 151/64
[2018-01-12] MEDS: LORazepam 2 mg/ml vial IV PRN (20:51)
[2018-01-12] MEDS: montelukast 10mg tablet PO SCH (20:52)
[2018-01-12] MEDS: insulin glargine (Lantus) pen - multi-dose SQ SCH (21:00)
[2018-01-12 23:00] VITALS: BP 157/63
[2018-01-13] MEDS: methylPREDNISolone sod succ 125mg/2ml vial IV SCH ×3 (01:51→13:32)
[2018-01-13] MEDS: normal saline 1000ml 1,000 ML IV SCH (01:51)
[2018-01-13] MEDS: ipratropium/albuterol 3ml nebule NEB SCH ×4 (02:41→20:36)
[2018-01-13 03:00] VITALS: BP 159/71
[2018-01-13] MEDS: acetaminophen 325mg tablet PO PRN ×2 (04:44→23:56)
[2018-01-13 05:38] LABS: BASOPHILS % (AUTO) 0 % (0-1); EOSINOPHILS % (AUTO) 0.1 % (0-6); HEMATOCRIT 38.2 % (35.0-45.0); HEMOGLOBIN 13.5 g/dl (12.0-16.0); LYMPHOCYTES # (AUTO) 0.5 X10'3 (1.1-4.8); LYMPHOCYTES % (AUTO) 5.2 % (21-51); MEAN CORPUSCULAR HEMOGLOBIN 33.3 PG (27.0-31.0); MEAN CORPUSCULAR HGB CONC 35.3 % (33.0-36.5); MEAN CORPUSCULAR VOLUME 94.3 FL (78-98); MEAN PLATELET VOLUME 8.1 FL (7.4-10.4); MONOCYTES # (AUTO) 0.5 X10'3 (0-0.9); MONOCYTES % (AUTO) 4.8 % (2-12); NEUTROPHILS # (AUTO) 9.1 X10'3 (1.8-7.7); NEUTROPHILS % (AUTO) 89.9 % (42-75); PLATELET COUNT 141 X10'3 (140-440); RED BLOOD COUNT 4.05 X10'6 (4.20-5.60); RED CELL DISTRIBUTION WIDTH 13.6 % (11.5-14.5); WHITE BLOOD COUNT 10.1 X10'3 (4.5-11.0)
[2018-01-13 06:00] VITALS: BP 153/68
[2018-01-13 06:10] LABS: ALANINE AMINOTRANSFERASE 87 U/L (12-78); ALBUMIN 2.5 G/DL (3.4-5.0); ALBUMIN/GLOBULIN RATIO 0.7 (1.1-1.5); ALKALINE PHOSPHATASE 81 IU/L (46-116); ANION GAP 8 (8-16); BILIRUBIN,TOTAL 0.7 MG/DL (0.1-1.0); BLOOD UREA NITROGEN 20 MG/DL (7-18); BUN/CREATININE RATIO 40.8 (6.6-38.0); CALCIUM 8.6 MG/DL (8.5-10.1); CHLORIDE 103 MMOL/L (99-107); CREATININE 0.49 MG/DL (0.40-0.90); GLUCOSE 166 MG/DL (70-104); MAGNESIUM 1.9 MG/DL (1.5-2.4); SODIUM 140 MMOL/L (135-145); TOTAL CARBON DIOXIDE 28.8 MMOL/L (24-32); TOTAL PROTEIN 6.1 G/DL (6.4-8.2); eGFR > 90 ML/MIN
[2018-01-13 06:11] LABS: ASPARTATE AMINO TRANSFERASE 52 U/L (10-37); PHOSPHORUS 2.9 MG/DL (2.3-4.5); POTASSIUM 4.5 MMOL/L (3.5-5.1)
[2018-01-13] MEDS: pantoprazole 40mg Tablet.DR PO SCH (07:30)
[2018-01-13] MEDS: amLODIPine 5mg tablet PO SCH (08:00)
[2018-01-13] MEDS: fluticasone nasal spray 16GM bottle NS SCH (08:43)
[2018-01-13] MEDS: heparin, porcine 5000 units/ml vial SQ SCH ×2 (08:44→19:12)
[2018-01-13] MEDS: lactobacillus rhamnosus 10,000 MMU CELLS/CAPSULE PO SCH ×2 (08:45→19:10)
[2018-01-13] MEDS: spironolactone 25 MG tablet PO SCH (08:51)
[2018-01-13] MEDS: insulin Lispro (HumaLOG) vial - multi-dose SQ SCH ×3 (08:58→19:16)
[2018-01-13] MEDS: levoFLOXACIN 500mg tablet PO SCH (10:40)
[2018-01-13 11:00] VITALS: BP 101/75
[2018-01-13 15:00] VITALS: BP 168/73
[2018-01-13 19:00] VITALS: BP 113/67
[2018-01-13] MEDS: insulin glargine (Lantus) pen - multi-dose SQ SCH (21:00)
[2018-01-13] MEDS: LORazepam 2 mg/ml vial IV PRN (21:08)
[2018-01-13] MEDS: montelukast 10mg tablet PO SCH (21:13)
[2018-01-13 23:00] VITALS: BP 146/57
[2018-01-13] MEDS: ipratropium/albuterol 3ml nebule NEB PRN (23:07)
[2018-01-14] MEDS: ipratropium/albuterol 3ml nebule NEB SCH ×5 (02:34→22:49)
[2018-01-14 03:00] VITALS: BP 144/49
[2018-01-14 05:58] LABS: BASOPHILS % (AUTO) 0.2 % (0-1); EOSINOPHILS # (AUTO) 0.1 X10'3 (0-0.9); EOSINOPHILS % (AUTO) 0.7 % (0-6); HEMATOCRIT 38.5 % (35.0-45.0); HEMOGLOBIN 13.6 g/dl (12.0-16.0); LYMPHOCYTES # (AUTO) 1.7 X10'3 (1.1-4.8); LYMPHOCYTES % (AUTO) 15.7 % (21-51); MEAN CORPUSCULAR HEMOGLOBIN 33.3 PG (27.0-31.0); MEAN CORPUSCULAR HGB CONC 35.2 % (33.0-36.5); MEAN CORPUSCULAR VOLUME 94.4 FL (78-98); MEAN PLATELET VOLUME 7.7 FL (7.4-10.4); MONOCYTES # (AUTO) 1.1 X10'3 (0-0.9); MONOCYTES % (AUTO) 9.9 % (2-12); NEUTROPHILS # (AUTO) 7.9 X10'3 (1.8-7.7); NEUTROPHILS % (AUTO) 73.5 % (42-75); PLATELET COUNT 135 X10'3 (140-440); RED BLOOD COUNT 4.08 X10'6 (4.20-5.60); RED CELL DISTRIBUTION WIDTH 13.7 % (11.5-14.5); WHITE BLOOD COUNT 10.7 X10'3 (4.5-11.0)
[2018-01-14 06:00] VITALS: BP 161/60
[2018-01-14 06:21] LABS: ALANINE AMINOTRANSFERASE 115 U/L (12-78); ALBUMIN 2.6 G/DL (3.4-5.0); ALBUMIN/GLOBULIN RATIO 0.8 (1.1-1.5); ALKALINE PHOSPHATASE 94 IU/L (46-116); ANION GAP 5 (8-16); ASPARTATE AMINO TRANSFERASE 61 U/L (10-37); BILIRUBIN,TOTAL 0.7 MG/DL (0.1-1.0); BLOOD UREA NITROGEN 22 MG/DL (7-18); BUN/CREATININE RATIO 33.8 (6.6-38.0); CALCIUM 8.5 MG/DL (8.5-10.1); CHLORIDE 103 MMOL/L (99-107); CREATININE 0.65 MG/DL (0.40-0.90); GLUCOSE 97 MG/DL (70-104); MAGNESIUM 1.9 MG/DL (1.5-2.4); PHOSPHORUS 2.7 MG/DL (2.3-4.5); POTASSIUM 3.9 MMOL/L (3.5-5.1); SODIUM 140 MMOL/L (135-145); TOTAL CARBON DIOXIDE 32.2 MMOL/L (24-32); TOTAL PROTEIN 5.9 G/DL (6.4-8.2); eGFR 90 ML/MIN
[2018-01-14] MEDS: spironolactone 25 MG tablet PO SCH (08:31)
[2018-01-14] MEDS: heparin, porcine 5000 units/ml vial SQ SCH ×2 (08:31→19:04)
[2018-01-14] MEDS: amLODIPine 5mg tablet PO SCH (08:31)
[2018-01-14] MEDS: pantoprazole 40mg Tablet.DR PO SCH (08:32)
[2018-01-14] MEDS: predniSONE 20 mg tablet PO SCH (08:32)
[2018-01-14] MEDS: lactobacillus rhamnosus 10,000 MMU CELLS/CAPSULE PO SCH ×2 (08:32→19:04)
[2018-01-14] MEDS: fluticasone nasal spray 16GM bottle NS SCH (08:45)
[2018-01-14] MEDS ORDERED: valsartan 80mg tablet PO SCH (09:12)
[2018-01-14] MEDS: insulin Lispro (HumaLOG) vial - multi-dose SQ SCH ×3 (09:54→19:08)
[2018-01-14 11:00] VITALS: BP 126/53
[2018-01-14] MEDS: levoFLOXACIN 500mg tablet PO SCH (11:09)
[2018-01-14] MEDS: ipratropium/albuterol 3ml nebule NEB PRN (12:04)
[2018-01-14 15:00] VITALS: BP 148/64
[2018-01-14 18:00] VITALS: BP 146/60
[2018-01-14] MEDS: LORazepam 2 mg/ml vial IV PRN (19:58)
[2018-01-14] MEDS: insulin glargine (Lantus) pen - multi-dose SQ SCH (21:00)
[2018-01-14] MEDS: montelukast 10mg tablet PO SCH (21:19)
[2018-01-14 22:10] VITALS: BP 153/56
[2018-01-15] MEDS: acetaminophen 325mg tablet PO PRN (00:34)
[2018-01-15 02:15] VITALS: BP 139/65
[2018-01-15] MEDS: ipratropium/albuterol 3ml nebule NEB SCH ×6 (02:57→23:12)
[2018-01-15 05:53] LABS: BASOPHILS % (AUTO) 0.1 % (0-1); EOSINOPHILS % (AUTO) 0.3 % (0-6); HEMATOCRIT 38.9 % (35.0-45.0); HEMOGLOBIN 13.6 g/dl (12.0-16.0); LYMPHOCYTES # (AUTO) 1.9 X10'3 (1.1-4.8); LYMPHOCYTES % (AUTO) 21.4 % (21-51); MEAN CORPUSCULAR HEMOGLOBIN 33.3 PG (27.0-31.0); MEAN CORPUSCULAR HGB CONC 34.9 % (33.0-36.5); MEAN CORPUSCULAR VOLUME 95.5 FL (78-98); MEAN PLATELET VOLUME 7.9 FL (7.4-10.4); MONOCYTES # (AUTO) 0.9 X10'3 (0-0.9); MONOCYTES % (AUTO) 9.7 % (2-12); NEUTROPHILS # (AUTO) 6.1 X10'3 (1.8-7.7); NEUTROPHILS % (AUTO) 68.5 % (42-75); PLATELET COUNT 112 X10'3 (140-440); RED BLOOD COUNT 4.07 X10'6 (4.20-5.60); RED CELL DISTRIBUTION WIDTH 13.7 % (11.5-14.5); WHITE BLOOD COUNT 8.9 X10'3 (4.5-11.0)
[2018-01-15 06:00] VITALS: BP 144/61
[2018-01-15 06:09] LABS: ALANINE AMINOTRANSFERASE 121 U/L (12-78); ALBUMIN 2.6 G/DL (3.4-5.0); ALBUMIN/GLOBULIN RATIO 0.8 (1.1-1.5); ALKALINE PHOSPHATASE 110 IU/L (46-116); ANION GAP 6 (8-16); ASPARTATE AMINO TRANSFERASE 49 U/L (10-37); BILIRUBIN,TOTAL 0.6 MG/DL (0.1-1.0); BLOOD UREA NITROGEN 22 MG/DL (7-18); BUN/CREATININE RATIO 34.9 (6.6-38.0); CALCIUM 8.5 MG/DL (8.5-10.1); CHLORIDE 103 MMOL/L (99-107); CREATININE 0.63 MG/DL (0.40-0.90); GLUCOSE 93 MG/DL (70-104); MAGNESIUM 1.8 MG/DL (1.5-2.4); PHOSPHORUS 4.1 MG/DL (2.3-4.5); POTASSIUM 3.8 MMOL/L (3.5-5.1); PREALBUMIN 34.2 MG/DL (19-36); SODIUM 142 MMOL/L (135-145); TOTAL PROTEIN 5.9 G/DL (6.4-8.2); eGFR > 90 ML/MIN
[2018-01-15] MEDS: fluticasone nasal spray 16GM bottle NS SCH (07:23)
[2018-01-15] MEDS: pantoprazole 40mg Tablet.DR PO SCH (07:23)
[2018-01-15] MEDS: lactobacillus rhamnosus 10,000 MMU CELLS/CAPSULE PO SCH ×2 (07:23→19:11)
[2018-01-15] MEDS: heparin, porcine 5000 units/ml vial SQ SCH ×2 (07:24→19:11)
[2018-01-15] MEDS: amLODIPine 5mg tablet PO SCH (07:24)
[2018-01-15] MEDS: predniSONE 20 mg tablet PO SCH (07:24)
[2018-01-15] MEDS: spironolactone 25 MG tablet PO SCH (07:35)
[2018-01-15] MEDS: insulin Lispro (HumaLOG) vial - multi-dose SQ SCH ×2 (09:19→19:10)
[2018-01-15 11:00] VITALS: BP 142/60
[2018-01-15] MEDS: levoFLOXACIN 500mg tablet PO SCH (11:31)
[2018-01-15 15:00] VITALS: BP 137/42
[2018-01-15 19:00] VITALS: BP 145/63
[2018-01-15] MEDS: montelukast 10mg tablet PO SCH (20:47)
[2018-01-15] MEDS: insulin glargine (Lantus) pen - multi-dose SQ SCH (21:00)
[2018-01-15] MEDS: LORazepam 2 mg/ml vial IV PRN (21:08)
[2018-01-15 23:00] VITALS: BP 119/43
[2018-01-16 03:00] VITALS: BP 149/57
[2018-01-16] MEDS: ipratropium/albuterol 3ml nebule NEB SCH ×6 (03:28→23:24)
[2018-01-16 06:00] VITALS: BP 139/49
[2018-01-16 06:43] LABS: BASOPHILS % (AUTO) 0.1 % (0-1); EOSINOPHILS # (AUTO) 0.2 X10'3 (0-0.9); EOSINOPHILS % (AUTO) 1.5 % (0-6); HEMOGLOBIN 13.6 g/dl (12.0-16.0); LYMPHOCYTES # (AUTO) 2.6 X10'3 (1.1-4.8); LYMPHOCYTES % (AUTO) 22.5 % (21-51); MEAN CORPUSCULAR HEMOGLOBIN 33.3 PG (27.0-31.0); MEAN CORPUSCULAR HGB CONC 34.7 % (33.0-36.5); MEAN CORPUSCULAR VOLUME 95.9 FL (78-98); MEAN PLATELET VOLUME 8.1 FL (7.4-10.4); MONOCYTES # (AUTO) 1.1 X10'3 (0-0.9); MONOCYTES % (AUTO) 9.6 % (2-12); NEUTROPHILS # (AUTO) 7.5 X10'3 (1.8-7.7); NEUTROPHILS % (AUTO) 66.3 % (42-75); PLATELET COUNT 126 X10'3 (140-440); RED BLOOD COUNT 4.07 X10'6 (4.20-5.60); RED CELL DISTRIBUTION WIDTH 13.7 % (11.5-14.5); WHITE BLOOD COUNT 11.3 X10'3 (4.5-11.0)
[2018-01-16 07:14] LABS: ALANINE AMINOTRANSFERASE 114 U/L (12-78); ALBUMIN 2.6 G/DL (3.4-5.0); ALBUMIN/GLOBULIN RATIO 0.8 (1.1-1.5); ALKALINE PHOSPHATASE 129 IU/L (46-116); ANION GAP 6 (8-16); ASPARTATE AMINO TRANSFERASE 40 U/L (10-37); BILIRUBIN,TOTAL 0.7 MG/DL (0.1-1.0); BLOOD UREA NITROGEN 21 MG/DL (7-18); BUN/CREATININE RATIO 29.2 (6.6-38.0); CALCIUM 9.2 MG/DL (8.5-10.1); CHLORIDE 102 MMOL/L (99-107); CREATININE 0.72 MG/DL (0.40-0.90); GLUCOSE 111 MG/DL (70-104); MAGNESIUM 1.7 MG/DL (1.5-2.4); PHOSPHORUS 3.3 MG/DL (2.3-4.5); POTASSIUM 3.7 MMOL/L (3.5-5.1); SODIUM 141 MMOL/L (135-145); TOTAL CARBON DIOXIDE 32.6 MMOL/L (24-32); eGFR 80 ML/MIN
[2018-01-16] MEDS: pantoprazole 40mg Tablet.DR PO SCH (08:41)
[2018-01-16] MEDS: spironolactone 25 MG tablet PO SCH (08:41)
[2018-01-16] MEDS: heparin, porcine 5000 units/ml vial SQ SCH ×2 (08:41→19:06)
[2018-01-16] MEDS: lactobacillus rhamnosus 10,000 MMU CELLS/CAPSULE PO SCH ×2 (08:41→19:06)
[2018-01-16] MEDS: predniSONE 20 mg tablet PO SCH (08:41)
[2018-01-16] MEDS: amLODIPine 5mg tablet PO SCH (08:41)
[2018-01-16] MEDS: fluticasone nasal spray 16GM bottle NS SCH (08:42)
[2018-01-16] MEDS: insulin Lispro (HumaLOG) vial - multi-dose SQ SCH ×2 (08:54→19:02)
[2018-01-16 11:00] VITALS: BP 140/74
[2018-01-16] MEDS ORDERED: PRED20TA PO (11:11)
[2018-01-16] MEDS ORDERED: LEVO500T89 PO (11:11)
[2018-01-16] MEDS: levoFLOXACIN 500mg tablet PO SCH (12:10)
[2018-01-16 15:00] VITALS: BP 153/75
[2018-01-16] MEDS: acetaminophen 325mg tablet PO PRN (17:10)
[2018-01-16 19:00] VITALS: BP 126/54
[2018-01-16] MEDS: insulin glargine (Lantus) pen - multi-dose SQ SCH (21:00)
[2018-01-16] MEDS: montelukast 10mg tablet PO SCH (21:33)
[2018-01-16 23:00] VITALS: BP 132/61
[2018-01-17] MEDS: ipratropium/albuterol 3ml nebule NEB SCH ×3 (03:10→11:12)
[2018-01-17 05:51] LABS: BASOPHILS % (AUTO) 0.2 % (0-1); EOSINOPHILS # (AUTO) 0.2 X10'3 (0-0.9); EOSINOPHILS % (AUTO) 1.4 % (0-6); HEMATOCRIT 39.5 % (35.0-45.0); HEMOGLOBIN 13.8 g/dl (12.0-16.0); LYMPHOCYTES # (AUTO) 2.5 X10'3 (1.1-4.8); LYMPHOCYTES % (AUTO) 20.2 % (21-51); MEAN CORPUSCULAR HEMOGLOBIN 33.3 PG (27.0-31.0); MEAN CORPUSCULAR VOLUME 95.2 FL (78-98); MONOCYTES # (AUTO) 1.2 X10'3 (0-0.9); MONOCYTES % (AUTO) 9.5 % (2-12); NEUTROPHILS # (AUTO) 8.5 X10'3 (1.8-7.7); NEUTROPHILS % (AUTO) 68.7 % (42-75); PLATELET COUNT 126 X10'3 (140-440); RED BLOOD COUNT 4.14 X10'6 (4.20-5.60); RED CELL DISTRIBUTION WIDTH 13.6 % (11.5-14.5); WHITE BLOOD COUNT 12.3 X10'3 (4.5-11.0)
[2018-01-17 06:00] VITALS: BP 136/60
[2018-01-17 06:59] LABS: ALANINE AMINOTRANSFERASE 104 U/L (12-78); ALBUMIN 2.7 G/DL (3.4-5.0); ALBUMIN/GLOBULIN RATIO 0.8 (1.1-1.5); ALKALINE PHOSPHATASE 133 IU/L (46-116); ANION GAP 6 (8-16); ASPARTATE AMINO TRANSFERASE 31 U/L (10-37); BILIRUBIN,TOTAL 0.5 MG/DL (0.1-1.0); BLOOD UREA NITROGEN 24 MG/DL (7-18); BUN/CREATININE RATIO 31.2 (6.6-38.0); CALCIUM 9.1 MG/DL (8.5-10.1); CHLORIDE 103 MMOL/L (99-107); CREATININE 0.77 MG/DL (0.40-0.90); GLUCOSE 93 MG/DL (70-104); MAGNESIUM 1.8 MG/DL (1.5-2.4); PHOSPHORUS 3.7 MG/DL (2.3-4.5); POTASSIUM 3.8 MMOL/L (3.5-5.1); SODIUM 142 MMOL/L (135-145); TOTAL CARBON DIOXIDE 33.2 MMOL/L (24-32); TOTAL PROTEIN 6.2 G/DL (6.4-8.2); eGFR 74 ML/MIN
[2018-01-17] MEDS: fluticasone nasal spray 16GM bottle NS SCH (07:35)
[2018-01-17] MEDS: lactobacillus rhamnosus 10,000 MMU CELLS/CAPSULE PO SCH (07:36)
[2018-01-17] MEDS: heparin, porcine 5000 units/ml vial SQ SCH (07:36)
[2018-01-17] MEDS: predniSONE 20 mg tablet PO SCH (07:36)
[2018-01-17] MEDS: spironolactone 25 MG tablet PO SCH (07:36)
[2018-01-17] MEDS: pantoprazole 40mg Tablet.DR PO SCH (07:37)
[2018-01-17] MEDS: amLODIPine 5mg tablet PO SCH (07:37)
[2018-01-17 11:00] VITALS: BP 138/53
[2018-01-17] MEDS: levoFLOXACIN 500mg tablet PO SCH (11:07)
== END 2018-01-17 11:30 | DRG 208 ==
LOC: ER 09:13 → ED HOLD 11:30 → EDBEDREQ 18:58 → ICU 2S 22:00 → CMPBEDREQ 22:20 → PCU 3S 01-11 15:43
PROVIDERS: ADMIT Internal Medicine Critical Care Medicine; ATTEND Family Medicine
PROC: 5A1945Z Respiratory Ventilation, 24-96 Consecutive Hours (ICD-10-PCS; principal; 2018-01-07)
PROC: 0BH18EZ Insertion of Endotracheal Airway into Trachea, Via Natural or Artificial Opening Endoscopic (ICD-10-PCS; 2018-01-07)
PROC: 5A09457 Assistance with Respiratory Ventilation, 24-96 Consecutive Hours, Continuous Positive Airway Pressure (ICD-10-PCS; 2018-01-09)
DX: J96.20 Acute and chronic respiratory failure, unspecified whether with hypoxia or hypercapnia (principal); J18.9 Pneumonia, unspecified organism; J44.0 Chronic obstructive pulmonary disease with (acute) lower respiratory infection; E87.0 Hyperosmolality and hypernatremia; J44.1 Chronic obstructive pulmonary disease with (acute) exacerbation; I16.1 Hypertensive emergency; Z99.81 Dependence on supplemental oxygen; M19.90 Unspecified osteoarthritis, unspecified site; E78.00 Pure hypercholesterolemia, unspecified; R31.9 Hematuria, unspecified; E78.5 Hyperlipidemia, unspecified; G47.00 Insomnia, unspecified; I10 Essential (primary) hypertension; F17.210 Nicotine dependence, cigarettes, uncomplicated; Z90.710 Acquired absence of both cervix and uterus; Z88.5 Allergy status to narcotic agent; Z79.899 Other long term (current) drug therapy
CPT/HCPCS: 36415; 36600; 71045; 76775; 80053; 81001; 82803; 82948; 83036; 83605; 83735; 83880; 84100; 84134; 84443; 84484; 85018; 85025; 85610; 85730; 87040; 87070; 93005; 93306; 94002; 94003; 94640; 94660; 94760; 96361; 96374; 96375; 97110; 97116; 97161; 97530; 99291; A6212; A6213; A7015; C1758; C9113; J0360; J0456; J0692; J0696; J0780; J1644; J1815; J1940; J1956; J2060; J2250; J2270; J2405; J2930; J3010; J3490; J7030; J7512

== ENCOUNTER 2018-05-01 15:28 | Inpatient (IN) | payer MEDICARE ==
[~2018-05-01] VITALS: Ht 154.9 cm; Wt 92.0 kg
[~2018-05-01 15:28] MED LIST changes: -AMLO-94 PO; +AMLO10TA4 PO; -AZI25OT PO; -CANE-100; +LEVO500T89 PO; -NAPR-1154 PO; -NORCO10T PO; -PRED20TA PO; -SPIR100T3 PO; +SPIR100T5 PO; -etomidate 2mg/ml inj. ONE
[2018-05-01] MEDS ORDERED: normal saline 1000ML IV soln IVB ONE (15:40)
[2018-05-01] MEDS ORDERED: LORazepam 2 mg/ml vial IV ONE (15:40)
[2018-05-01] MEDS ORDERED: azithromycin/NS 500mg/250ml 250 ML IV ONE (15:40)
[2018-05-01] MEDS ORDERED: albuterol 2.5 MG/3 ML nebule CONTNEB PRN (15:40)
[2018-05-01 16:17] LABS: BASOPHILS % (AUTO) 0.2 % (0-1); EOSINOPHILS % (AUTO) 0.1 % (0-6); HEMOGLOBIN 14.2 g/dl (12.0-16.0); LYMPHOCYTES # (AUTO) 0.8 X10'3 (1.1-4.8); MEAN CORPUSCULAR HEMOGLOBIN 33.3 PG (27.0-31.0); MEAN CORPUSCULAR HGB CONC 35.5 % (33.0-36.5); MEAN CORPUSCULAR VOLUME 93.9 FL (78-98); MEAN PLATELET VOLUME 7.8 FL (7.4-10.4); MONOCYTES # (AUTO) 0.1 X10'3 (0-0.9); MONOCYTES % (AUTO) 1.7 % (2-12); NEUTROPHILS # (AUTO) 6.8 X10'3 (1.8-7.7); PLATELET COUNT 154 X10'3 (140-440); RED BLOOD COUNT 4.26 X10'6 (4.20-5.60); RED CELL DISTRIBUTION WIDTH 13.7 % (11.5-14.5); WHITE BLOOD COUNT 7.7 X10'3 (4.5-11.0)
[2018-05-01 16:21] LABS: ABG BASE EXCESS -4.7 mmol/L (-2.0-3.0); ABG HCO3 20.7 mmol/L (22.0-26.0); ABG OXYGEN SATURATION 95.9 % (95-98); ABG PCO2 (T) 39.7 mmHg (32.0-45.0); ABG PH (T) 7.335 (7.350-7.450); ABG PO2 (T) 89.3 mmHg (83-108); FCOHb 1.2 % (0.5-1.5); FLOW 4 L/min; FMetHb 0.1 % (0.3-1.12); FO2Hb 94.7 % (94-100)
[2018-05-01 16:35] LABS: ALANINE AMINOTRANSFERASE 38 U/L (12-78); ALBUMIN 3.3 G/DL (3.4-5.0); ALBUMIN/GLOBULIN RATIO 0.8 (1.1-1.5); ALKALINE PHOSPHATASE 110 IU/L (46-116); ANION GAP 10 (8-16); ASPARTATE AMINO TRANSFERASE 22 U/L (10-37); BILIRUBIN,TOTAL 0.5 MG/DL (0.1-1.0); BLOOD UREA NITROGEN 17 MG/DL (7-18); BUN/CREATININE RATIO 20.7 (6.6-38.0); CALCIUM 9.3 MG/DL (8.5-10.1); CHLORIDE 105 MMOL/L (99-107); CREATININE 0.82 MG/DL (0.40-0.90); GLUCOSE 164 MG/DL (70-104); POTASSIUM 3.7 MMOL/L (3.5-5.1); SODIUM 142 MMOL/L (135-145); TOTAL CARBON DIOXIDE 26.6 MMOL/L (24-32); TOTAL PROTEIN 7.2 G/DL (6.4-8.2); eGFR 69 ML/MIN
[2018-05-01] MEDS ORDERED: benzonatate 100mg capsule PO ONE (16:55)
[2018-05-01] MEDS ORDERED: PRED5TAB PO (19:08)
[2018-05-01] MEDS ORDERED: PROM5SYR2 PO (19:08)
[2018-05-01] MEDS ORDERED: SPIR25TA5 PO (19:08)
[2018-05-01] MEDS ORDERED: AZIT-63 PO (19:08)
[2018-05-01] MEDS ORDERED: LORA0.5T PO (19:08)
[2018-05-01] MEDS ORDERED: acetaminophen 325mg tablet PO PRN (21:00)
[2018-05-01] MEDS ORDERED: magnesium hydroxide 30ml (MOM) UD suspension PO PRN (21:00)
[2018-05-01] MEDS ORDERED: bisacodyl 10mg suppository rectal RC PRN (21:00)
[2018-05-01] MEDS ORDERED: albuterol 2.5 MG/3 ML nebule NEB PRN (21:00)
[2018-05-01] MEDS ORDERED: methylPREDNISolone sod succ 125mg/2ml vial IV ONE (21:10)
[2018-05-01 21:50] VITALS: BP 120/58
[2018-05-01 21:53] LABS: MAGNESIUM 1.5 MG/DL (1.5-2.4); TROPONIN I < 0.04 NG/ML (0.0-0.05)
[2018-05-01] MEDS: CefTRIAXone/D5W-Rocephin 1gm 50 ML IV SCH (22:36)
[2018-05-01] MEDS: heparin, porcine 5000 units/ml vial SQ SCH (22:41)
[2018-05-01 23:00] VITALS: BP 137/59
[2018-05-01] MEDS: ipratropium/albuterol 3ml nebule NEB SCH (23:04)
[2018-05-02] VITALS (7 sets, daily range): BP systolic 125–194; BP diastolic 47–82
[2018-05-02] MEDS: methylPREDNISolone sod succ 125mg/2ml vial IV SCH ×4 (03:07→20:01)
[2018-05-02] MEDS: ipratropium/albuterol 3ml nebule NEB SCH ×4 (03:09→23:48)
[2018-05-02] MEDS ORDERED: LORazepam 2 mg/ml vial IV ONE ×2 (03:55→04:05)
[2018-05-02 06:06] LABS: ALANINE AMINOTRANSFERASE 38 U/L (12-78); ALBUMIN 3.1 G/DL (3.4-5.0); ALBUMIN/GLOBULIN RATIO 0.8 (1.1-1.5); ALKALINE PHOSPHATASE 98 IU/L (46-116); ANION GAP 9 (8-16); ASPARTATE AMINO TRANSFERASE 21 U/L (10-37); BILIRUBIN,TOTAL 0.5 MG/DL (0.1-1.0); BLOOD UREA NITROGEN 23 MG/DL (7-18); BUN/CREATININE RATIO 24.7 (6.6-38.0); CALCIUM 9.1 MG/DL (8.5-10.1); CHLORIDE 107 MMOL/L (99-107); CREATININE 0.93 MG/DL (0.40-0.90); GLUCOSE 169 MG/DL (70-104); MAGNESIUM 1.7 MG/DL (1.5-2.4); POTASSIUM 4.5 MMOL/L (3.5-5.1); SODIUM 142 MMOL/L (135-145); TOTAL CARBON DIOXIDE 26.2 MMOL/L (24-32); eGFR 60 ML/MIN
[2018-05-02 06:18] LABS: BASOPHILS % (AUTO) 0 % (0-1); EOSINOPHILS % (AUTO) 0 % (0-6); HEMATOCRIT 38.8 % (35.0-45.0); HEMOGLOBIN 13.5 g/dl (12.0-16.0); LYMPHOCYTES # (AUTO) 0.7 X10'3 (1.1-4.8); LYMPHOCYTES % (AUTO) 7.9 % (21-51); MEAN CORPUSCULAR HGB CONC 34.8 % (33.0-36.5); MEAN CORPUSCULAR VOLUME 94.9 FL (78-98); MEAN PLATELET VOLUME 7.9 FL (7.4-10.4); MONOCYTES # (AUTO) 0.1 X10'3 (0-0.9); NEUTROPHILS # (AUTO) 8.4 X10'3 (1.8-7.7); NEUTROPHILS % (AUTO) 91.1 % (42-75); PLATELET COUNT 157 X10'3 (140-440); RED BLOOD COUNT 4.09 X10'6 (4.20-5.60); RED CELL DISTRIBUTION WIDTH 13.8 % (11.5-14.5); WHITE BLOOD COUNT 9.2 X10'3 (4.5-11.0)
[2018-05-02] MEDS: spironolactone 25 MG tablet PO SCH (07:20)
[2018-05-02] MEDS: amLODIPine 5mg tablet PO SCH (07:20)
[2018-05-02] MEDS: azithromycin 250mg tablet PO SCH (07:20)
[2018-05-02] MEDS: heparin, porcine 5000 units/ml vial SQ SCH ×2 (07:21→20:02)
[2018-05-02] MEDS: fluticasone nasal spray 16GM bottle NS SCH (07:21)
[2018-05-02] MEDS: CefTRIAXone/D5W-Rocephin 1gm 50 ML IV SCH (07:22)
[2018-05-02] MEDS ORDERED: spironolactone 25 MG tablet PO SCH (08:00)
[2018-05-02] MEDS ORDERED: hyDRALAzine 10mg tablet PO PRN (11:40)
[2018-05-02] MEDS: LORazepam 0.5 MG tablet PO PRN ×2 (12:35→20:03)
[2018-05-02] MEDS: ipratropium/albuterol 3ml nebule NEB PRN ×2 (15:53→20:23)
[2018-05-02] MEDS: albuterol 2.5 MG/3 ML nebule NEB SCH ×2 (15:57→20:00)
[2018-05-02] MEDS: montelukast 10mg tablet PO SCH (20:02)
[2018-05-03] MEDS: methylPREDNISolone sod succ 125mg/2ml vial IV SCH ×4 (01:35→19:33)
[2018-05-03] MEDS: LORazepam 0.5 MG tablet PO PRN ×3 (02:16→19:42)
[2018-05-03] MEDS: ipratropium/albuterol 3ml nebule NEB SCH ×4 (02:37→21:54)
[2018-05-03 03:00] VITALS: BP 113/62
[2018-05-03 05:09] LABS: BASOPHILS % (AUTO) 0 % (0-1); EOSINOPHILS % (AUTO) 0 % (0-6); HEMATOCRIT 37.9 % (35.0-45.0); LYMPHOCYTES # (AUTO) 0.5 X10'3 (1.1-4.8); LYMPHOCYTES % (AUTO) 3.4 % (21-51); MEAN CORPUSCULAR HGB CONC 34.4 % (33.0-36.5); MEAN PLATELET VOLUME 8.4 FL (7.4-10.4); MONOCYTES # (AUTO) 0.3 X10'3 (0-0.9); NEUTROPHILS # (AUTO) 14.1 X10'3 (1.8-7.7); NEUTROPHILS % (AUTO) 94.6 % (42-75); PLATELET COUNT 156 X10'3 (140-440); RED BLOOD COUNT 3.95 X10'6 (4.20-5.60); RED CELL DISTRIBUTION WIDTH 13.5 % (11.5-14.5); WHITE BLOOD COUNT 14.9 X10'3 (4.5-11.0)
[2018-05-03 05:52] LABS: ALANINE AMINOTRANSFERASE 36 U/L (12-78); ALBUMIN/GLOBULIN RATIO 0.9 (1.1-1.5); ALKALINE PHOSPHATASE 79 IU/L (46-116); ANION GAP 11 (8-16); ASPARTATE AMINO TRANSFERASE 23 U/L (10-37); BILIRUBIN,TOTAL 0.3 MG/DL (0.1-1.0); BLOOD UREA NITROGEN 28 MG/DL (7-18); BUN/CREATININE RATIO 32.6 (6.6-38.0); CHLORIDE 108 MMOL/L (99-107); CREATININE 0.86 MG/DL (0.40-0.90); GLUCOSE 268 MG/DL (70-104); MAGNESIUM 2.1 MG/DL (1.5-2.4); POTASSIUM 4.3 MMOL/L (3.5-5.1); SODIUM 145 MMOL/L (135-145); TOTAL CARBON DIOXIDE 26.2 MMOL/L (24-32); TOTAL PROTEIN 6.5 G/DL (6.4-8.2); eGFR 65 ML/MIN
[2018-05-03 06:00] VITALS: BP 159/71
[2018-05-03] MEDS: CefTRIAXone/D5W-Rocephin 1gm 50 ML IV SCH (08:52)
[2018-05-03] MEDS: fluticasone nasal spray 16GM bottle NS SCH (08:56)
[2018-05-03] MEDS: spironolactone 25 MG tablet PO SCH (08:57)
[2018-05-03] MEDS: amLODIPine 5mg tablet PO SCH (08:57)
[2018-05-03] MEDS: azithromycin 250mg tablet PO SCH (08:58)
[2018-05-03] MEDS: heparin, porcine 5000 units/ml vial SQ SCH ×2 (08:59→19:33)
[2018-05-03] MEDS ORDERED: diltiazem 5mg/ml 5ml inj. IV ONE (09:25)
[2018-05-03] MEDS ORDERED: guaiFENesin/DM oral syrup 5 ML CUP PO PRN (09:25)
[2018-05-03 11:00] VITALS: BP 152/70
[2018-05-03] MEDS: diltiazem 30mg tablet PO SCH ×2 (14:26→19:33)
[2018-05-03] MEDS: LORazepam 1 MG tablet PO PRN (15:00)
[2018-05-03] MEDS ORDERED: iohexol 350MG/ML 100ml bottle IV ONE (15:07)
[2018-05-03] MEDS: ipratropium/albuterol 3ml nebule NEB PRN (15:29)
[2018-05-03 19:00] VITALS: BP 108/57
[2018-05-03] MEDS: montelukast 10mg tablet PO SCH (19:33)
[2018-05-03 23:00] VITALS: BP 128/81
[2018-05-04] MEDS: methylPREDNISolone sod succ 125mg/2ml vial IV SCH ×4 (01:36→20:18)
[2018-05-04] MEDS: diltiazem 30mg tablet PO SCH ×4 (01:37→20:19)
[2018-05-04] MEDS: ipratropium/albuterol 3ml nebule NEB SCH ×4 (03:25→22:05)
[2018-05-04] MEDS: ipratropium/albuterol 3ml nebule NEB PRN ×3 (03:35→17:13)
[2018-05-04 05:07] LABS: BASOPHILS % (AUTO) 0.1 % (0-1); EOSINOPHILS % (AUTO) 0 % (0-6); HEMATOCRIT 39.3 % (35.0-45.0); HEMOGLOBIN 13.3 g/dl (12.0-16.0); LYMPHOCYTES # (AUTO) 0.5 X10'3 (1.1-4.8); LYMPHOCYTES % (AUTO) 4.7 % (21-51); MEAN CORPUSCULAR HEMOGLOBIN 32.6 PG (27.0-31.0); MEAN CORPUSCULAR HGB CONC 33.9 % (33.0-36.5); MONOCYTES # (AUTO) 0.2 X10'3 (0-0.9); MONOCYTES % (AUTO) 1.8 % (2-12); NEUTROPHILS # (AUTO) 10.9 X10'3 (1.8-7.7); NEUTROPHILS % (AUTO) 93.4 % (42-75); PLATELET COUNT 172 X10'3 (140-440); RED BLOOD COUNT 4.09 X10'6 (4.20-5.60); RED CELL DISTRIBUTION WIDTH 13.5 % (11.5-14.5); WHITE BLOOD COUNT 11.6 X10'3 (4.5-11.0)
[2018-05-04 05:33] LABS: ALANINE AMINOTRANSFERASE 35 U/L (12-78); ALBUMIN 3.1 G/DL (3.4-5.0); ALBUMIN/GLOBULIN RATIO 0.9 (1.1-1.5); ALKALINE PHOSPHATASE 80 IU/L (46-116); ANION GAP 5 (8-16); ASPARTATE AMINO TRANSFERASE 23 U/L (10-37); BILIRUBIN,TOTAL 0.3 MG/DL (0.1-1.0); BLOOD UREA NITROGEN 24 MG/DL (7-18); BUN/CREATININE RATIO 32.4 (6.6-38.0); CALCIUM 8.7 MG/DL (8.5-10.1); CHLORIDE 106 MMOL/L (99-107); CREATININE 0.74 MG/DL (0.40-0.90); GLUCOSE 216 MG/DL (70-104); MAGNESIUM 2.1 MG/DL (1.5-2.4); SODIUM 141 MMOL/L (135-145); TOTAL CARBON DIOXIDE 29.9 MMOL/L (24-32); TOTAL PROTEIN 6.6 G/DL (6.4-8.2); eGFR 78 ML/MIN
[2018-05-04 06:00] VITALS: BP 158/84
[2018-05-04] MEDS: LORazepam 1 MG tablet PO PRN (06:39)
[2018-05-04 08:38] LABS: URINE AMPHETAMINE SCREEN NEGATIVE (Neg); URINE BARBITUATE SCREEN NEGATIVE (Neg); URINE BENZODIAZEPINES SCREEN NEGATIVE (Neg); URINE CANNABINOID SCREEN NEGATIVE (Neg); URINE COCAINE SCREEN NEGATIVE (Neg); URINE METHADONE SCREEN NEGATIVE (Neg); URINE OPIATE SCREEN NEGATIVE (Neg); URINE PHENCYCLIDINE SCREEN NEGATIVE (Neg)
[2018-05-04] MEDS: spironolactone 25 MG tablet PO SCH (08:39)
[2018-05-04] MEDS: azithromycin 250mg tablet PO SCH (08:39)
[2018-05-04] MEDS: heparin, porcine 5000 units/ml vial SQ SCH ×2 (08:40→20:18)
[2018-05-04] MEDS: CefTRIAXone/D5W-Rocephin 1gm 50 ML IV SCH (08:46)
[2018-05-04] MEDS: fluticasone nasal spray 16GM bottle NS SCH (08:55)
[2018-05-04 11:00] VITALS: BP 157/82
[2018-05-04 15:00] VITALS: BP 154/72
[2018-05-04 19:00] VITALS: BP 123/60
[2018-05-04] MEDS: lactobacillus rhamnosus 10,000 MMU CELLS/CAPSULE PO SCH (20:19)
[2018-05-04] MEDS: montelukast 10mg tablet PO SCH (20:19)
[2018-05-04] MEDS: LORazepam 0.5 MG tablet PO PRN (20:19)
[2018-05-04 23:00] VITALS: BP 136/56
[2018-05-05] MEDS: diltiazem 30mg tablet PO SCH ×2 (02:22→07:40)
[2018-05-05] MEDS: LORazepam 0.5 MG tablet PO PRN (02:22)
[2018-05-05] MEDS: methylPREDNISolone sod succ 125mg/2ml vial IV SCH ×2 (02:22→07:42)
[2018-05-05 03:00] VITALS: BP 152/64
[2018-05-05] MEDS: ipratropium/albuterol 3ml nebule NEB SCH ×2 (05:34→10:40)
[2018-05-05 05:41] LABS: BASOPHILS % (AUTO) 0 % (0-1); EOSINOPHILS % (AUTO) 0 % (0-6); HEMATOCRIT 39.4 % (35.0-45.0); HEMOGLOBIN 13.6 g/dl (12.0-16.0); LYMPHOCYTES # (AUTO) 0.5 X10'3 (1.1-4.8); LYMPHOCYTES % (AUTO) 6.6 % (21-51); MEAN CORPUSCULAR HEMOGLOBIN 33.1 PG (27.0-31.0); MEAN CORPUSCULAR HGB CONC 34.6 % (33.0-36.5); MEAN CORPUSCULAR VOLUME 95.7 FL (78-98); MEAN PLATELET VOLUME 8.1 FL (7.4-10.4); MONOCYTES # (AUTO) 0.2 X10'3 (0-0.9); MONOCYTES % (AUTO) 2.4 % (2-12); NEUTROPHILS # (AUTO) 6.8 X10'3 (1.8-7.7); PLATELET COUNT 164 X10'3 (140-440); RED BLOOD COUNT 4.12 X10'6 (4.20-5.60); RED CELL DISTRIBUTION WIDTH 13.6 % (11.5-14.5); WHITE BLOOD COUNT 7.5 X10'3 (4.5-11.0)
[2018-05-05 06:00] VITALS: BP 154/71
[2018-05-05 06:05] LABS: ALANINE AMINOTRANSFERASE 31 U/L (12-78); ALBUMIN/GLOBULIN RATIO 0.8 (1.1-1.5); ALKALINE PHOSPHATASE 76 IU/L (46-116); ANION GAP 6 (8-16); ASPARTATE AMINO TRANSFERASE 22 U/L (10-37); BILIRUBIN,TOTAL 0.3 MG/DL (0.1-1.0); BLOOD UREA NITROGEN 33 MG/DL (7-18); BUN/CREATININE RATIO 38.4 (6.6-38.0); CALCIUM 8.6 MG/DL (8.5-10.1); CHLORIDE 106 MMOL/L (99-107); CREATININE 0.86 MG/DL (0.40-0.90); GLUCOSE 303 MG/DL (70-104); MAGNESIUM 2.1 MG/DL (1.5-2.4); POTASSIUM 4.2 MMOL/L (3.5-5.1); SODIUM 142 MMOL/L (135-145); TOTAL CARBON DIOXIDE 29.7 MMOL/L (24-32); TOTAL PROTEIN 6.8 G/DL (6.4-8.2); eGFR 65 ML/MIN
[2018-05-05] MEDS: lactobacillus rhamnosus 10,000 MMU CELLS/CAPSULE PO SCH (07:39)
[2018-05-05] MEDS: azithromycin 250mg tablet PO SCH (07:40)
[2018-05-05] MEDS: spironolactone 25 MG tablet PO SCH (07:40)
[2018-05-05] MEDS: fluticasone nasal spray 16GM bottle NS SCH (07:41)
[2018-05-05] MEDS: CefTRIAXone/D5W-Rocephin 1gm 50 ML IV SCH (07:42)
[2018-05-05] MEDS: heparin, porcine 5000 units/ml vial SQ SCH (07:43)
[2018-05-05] MEDS: LORazepam 1 MG tablet PO PRN (07:55)
[2018-05-05 11:00] VITALS: BP 160/80
== END 2018-05-05 13:26 | DRG 189 ==
LOC: ER 15:28 → ED HOLD 20:56 → EDBEDREQ 21:09 → PCU 3S 21:41
PROVIDERS: ADMIT Emergency Medicine; ATTEND Family Medicine
DX: J96.21 Acute and chronic respiratory failure with hypoxia (principal); J44.1 Chronic obstructive pulmonary disease with (acute) exacerbation; I10 Essential (primary) hypertension; E78.5 Hyperlipidemia, unspecified; M19.90 Unspecified osteoarthritis, unspecified site; I25.10 Atherosclerotic heart disease of native coronary artery without angina pectoris; E78.00 Pure hypercholesterolemia, unspecified; E05.90 Thyrotoxicosis, unspecified without thyrotoxic crisis or storm; R00.0 Tachycardia, unspecified; F41.9 Anxiety disorder, unspecified; F17.200 Nicotine dependence, unspecified, uncomplicated; Z90.710 Acquired absence of both cervix and uterus; Z88.6 Allergy status to analgesic agent; Z79.899 Other long term (current) drug therapy; Z71.6 Tobacco abuse counseling
CPT/HCPCS: 36415; 36600; 71045; 71275; 76536; 80053; 80305; 82803; 82948; 83735; 83880; 84439; 84443; 84480; 84484; 85018; 85025; 87070; 93005; 94640; 94760; 96365; 96366; 96375; 97110; 97116; 97162; 97530; 99285; A6449; J0456; J0696; J1644; J2060; J2930; J3490; J7030; Q9967

== ENCOUNTER 2018-07-17 11:23 | Inpatient (IN) | payer MEDICARE ==
[~2018-07-17] VITALS: Ht 154.9 cm; Wt 97.9 kg
[~2018-07-17 11:23] MED LIST changes: +FURO-150 PO; -LEVO500T89 PO; +LORA0.5T PO; +PRED5TAB PO; -SPIR100T5 PO; +SPIR25TA5 PO; -TIOT4MIS3
[2018-07-17 12:09] LABS: BASOPHILS % (AUTO) 0.3 % (0-1); EOSINOPHILS # (AUTO) 0.2 X10'3 (0-0.9); EOSINOPHILS % (AUTO) 1.1 % (0-6); HEMATOCRIT 39.9 % (35.0-45.0); HEMOGLOBIN 14.1 g/dl (12.0-16.0); LYMPHOCYTES # (AUTO) 1.1 X10'3 (1.1-4.8); LYMPHOCYTES % (AUTO) 7.7 % (21-51); MEAN CORPUSCULAR HGB CONC 35.2 % (33.0-36.5); MEAN CORPUSCULAR VOLUME 93.6 FL (78-98); MEAN PLATELET VOLUME 7.4 FL (7.4-10.4); MONOCYTES # (AUTO) 0.7 X10'3 (0-0.9); MONOCYTES % (AUTO) 4.5 % (2-12); NEUTROPHILS # (AUTO) 12.9 X10'3 (1.8-7.7); NEUTROPHILS % (AUTO) 86.4 % (42-75); PLATELET COUNT 231 X10'3 (140-440); RED BLOOD COUNT 4.27 X10'6 (4.20-5.60); RED CELL DISTRIBUTION WIDTH 13.9 % (11.5-14.5)
[2018-07-17 12:23] LABS: ALANINE AMINOTRANSFERASE 59 U/L (12-78); ALBUMIN 3.9 G/DL (3.4-5.0); ALBUMIN/GLOBULIN RATIO 1.1 (1.1-1.5); ALKALINE PHOSPHATASE 91 IU/L (46-116); ANION GAP 13 (8-16); ASPARTATE AMINO TRANSFERASE 18 U/L (10-37); BILIRUBIN,TOTAL 0.8 MG/DL (0.1-1.0); BLOOD UREA NITROGEN 34 MG/DL (7-18); BUN/CREATININE RATIO 26.8 (6.6-38.0); CHLORIDE 93 MMOL/L (99-107); CREATININE 1.27 MG/DL (0.40-0.90); GLUCOSE 161 MG/DL (70-104); POTASSIUM 5.3 MMOL/L (3.5-5.1); SODIUM 128 MMOL/L (135-145); TOTAL CARBON DIOXIDE 22.4 MMOL/L (24-32); TOTAL PROTEIN 7.4 G/DL (6.4-8.2); eGFR 42 ML/MIN
[2018-07-17 12:31] LABS: TROPONIN I < 0.04 NG/ML (0.0-0.05)
[2018-07-17] MEDS ORDERED: predniSONE 20 mg tablet PO ONE (12:55)
[2018-07-17] MEDS ORDERED: ipratropium/albuterol 3ml nebule NEB ONE ×2 (12:55→19:50)
[2018-07-17] MEDS ORDERED: levoFLOXACIN-Levaquin 750MG/D5 150 ML IV ONE (12:55)
[2018-07-17] MEDS ORDERED: ondansetron/PF 4mg/2ml inj IV PRN (13:40)
[2018-07-17] MEDS ORDERED: magnesium 2GM in 50ml NS 50 ML IV PRN (13:40)
[2018-07-17] MEDS ORDERED: magnesium 4gm in 100ml NS 100 ML IV PRN (13:40)
[2018-07-17] MEDS ORDERED: potassium Cl 20 mEq SR tablet PO PRN ×2 (13:40)
[2018-07-17] MEDS ORDERED: acetaminophen 325mg tablet PO PRN ×2 (13:40)
[2018-07-17] MEDS ORDERED: HYDROcodone/acetaminophen 5mg/325mg tablet PO PRN (13:40)
[2018-07-17] MEDS ORDERED: docusate sod 100mg capsule PO PRN (13:40)
[2018-07-17] MEDS ORDERED: potassium Cl 40MEQ/NS 500ml 500 ML IV PRN ×2 (13:40)
[2018-07-17] MEDS ORDERED: sodium polystyrene sulfonate 15gm/60ml oral suspension PO ONE (13:50)
[2018-07-17] MEDS ORDERED: LOSA25TA96 PO (14:00)
[2018-07-17] MEDS ORDERED: SPIR100T5 PO (14:00)
[2018-07-17] MEDS ORDERED: FLUT100D2 INH (14:00)
[2018-07-17] MEDS ORDERED: GLYC10.7 INH (14:00)
[2018-07-17] MEDS ORDERED: PRED5TAB PO (14:00)
[2018-07-17] MEDS ORDERED: POTA20PA40 PO (14:00)
[2018-07-17] MEDS ORDERED: ROFL500T7 PO (14:00)
[2018-07-17] MEDS ORDERED: CARSR60C PO (14:00)
[2018-07-17] MEDS ORDERED: ATR0.5NEB IH (14:00)
[2018-07-17] MEDS: normal saline 1000ml 1,000 ML IV SCH (14:57)
[2018-07-17 15:30] VITALS: BP 145/83
[2018-07-17 19:00] VITALS: BP 133/46
[2018-07-17] MEDS: heparin, porcine 5000 units/ml vial SQ SCH (19:55)
[2018-07-17] MEDS ORDERED: temazepam 15mg capsule PO PRN (21:00)
[2018-07-17] MEDS: LORazepam 0.5 MG tablet PO PRN (21:57)
[2018-07-17 23:00] VITALS: BP 139/57
[2018-07-17] MEDS: ipratropium/albuterol 3ml nebule NEB SCH (23:26)
[2018-07-18 03:00] VITALS: BP 134/52
[2018-07-18] MEDS: normal saline 1000ml 1,000 ML IV SCH ×3 (03:12→19:18)
[2018-07-18] MEDS: ipratropium/albuterol 3ml nebule NEB SCH ×6 (03:26→23:19)
[2018-07-18 03:41] LABS: BASOPHILS % (AUTO) 0 % (0-1); EOSINOPHILS # (AUTO) 0.1 X10'3 (0-0.9); EOSINOPHILS % (AUTO) 1.1 % (0-6); HEMATOCRIT 33.8 % (35.0-45.0); HEMOGLOBIN 11.8 g/dl (12.0-16.0); LYMPHOCYTES # (AUTO) 0.7 X10'3 (1.1-4.8); LYMPHOCYTES % (AUTO) 7.9 % (21-51); MEAN CORPUSCULAR VOLUME 94.4 FL (78-98); MEAN PLATELET VOLUME 7.6 FL (7.4-10.4); MONOCYTES # (AUTO) 0.4 X10'3 (0-0.9); MONOCYTES % (AUTO) 3.9 % (2-12); NEUTROPHILS # (AUTO) 7.8 X10'3 (1.8-7.7); NEUTROPHILS % (AUTO) 87.1 % (42-75); PLATELET COUNT 166 X10'3 (140-440); RED BLOOD COUNT 3.58 X10'6 (4.20-5.60); RED CELL DISTRIBUTION WIDTH 14.3 % (11.5-14.5)
[2018-07-18 04:08] LABS: ALBUMIN 3.2 G/DL (3.4-5.0); ANION GAP 9 (8-16); BLOOD UREA NITROGEN 32 MG/DL (7-18); BUN/CREATININE RATIO 27.8 (6.6-38.0); CALCIUM 8.4 MG/DL (8.5-10.1); CHLORIDE 94 MMOL/L (99-107); CREATININE 1.15 MG/DL (0.40-0.90); GLUCOSE 169 MG/DL (70-104); MAGNESIUM 1.4 MG/DL (1.5-2.4); POTASSIUM 4.9 MMOL/L (3.5-5.1); SODIUM 127 MMOL/L (135-145); eGFR 47 ML/MIN
[2018-07-18 06:00] VITALS: BP 126/53
[2018-07-18] MEDS: K and/or MAG REPLACEMENT MC SCH (08:00)
[2018-07-18] MEDS ORDERED: CefTRIAXone 2gm/D5W 50ml 50 ML IV SCH (08:00)
[2018-07-18] MEDS ORDERED: methylPREDNISolone sod succ 125mg/2ml vial IV SCH (08:00)
[2018-07-18] MEDS: heparin, porcine 5000 units/ml vial SQ SCH ×2 (08:24→19:16)
[2018-07-18] MEDS: magnesium Cl slow-release 64mg tablet PO PRN ×2 (08:24→17:26)
[2018-07-18] MEDS: LORazepam 0.5 MG tablet PO PRN ×2 (08:26→19:16)
[2018-07-18] MEDS: predniSONE 5mg tablet PO SCH (10:30)
[2018-07-18] MEDS: roflumilast 500mcg tablet PO SCH (10:30)
[2018-07-18] MEDS: azithromycin 250mg tablet PO SCH (10:59)
[2018-07-18] MEDS: furosemide 20MG tablet PO SCH (10:59)
[2018-07-18] MEDS: amLODIPine 5mg tablet PO SCH (10:59)
[2018-07-18] MEDS: diltiazem CD 120mg capsule (once-daily) PO SCH (10:59)
[2018-07-18 11:00] VITALS: BP 141/78
[2018-07-18] MEDS: piperacillin/tazo 3.375gm/50ml 50 ML IV SCH ×3 (11:00→19:16)
[2018-07-18] MEDS: losartan 25mg tablet PO SCH (11:00)
[2018-07-18] MEDS ORDERED: ipratropium 0.5 MG/2.5ML nebule IH SCH (12:00)
[2018-07-18] MEDS: sodium chloride 1gm tablet PO SCH ×3 (13:20→21:59)
[2018-07-18 15:00] VITALS: BP 103/53
[2018-07-18 19:00] VITALS: BP 122/67
[2018-07-18] MEDS: FORMOTEROL FUM IH SCH (19:28)
[2018-07-18] MEDS: GLYCOPYRROLATE IH SCH (19:28)
[2018-07-18] MEDS: BUDESONIDE 0.25 MG/2 ML AMPUL.NEB IH SCH (19:31)
[2018-07-18] MEDS: montelukast 10mg tablet PO SCH (21:59)
[2018-07-18 23:00] VITALS: BP 105/43
[2018-07-19] MEDS: piperacillin/tazo 3.375gm/50ml 50 ML IV SCH ×4 (01:52→21:29)
[2018-07-19] MEDS: ipratropium/albuterol 3ml nebule NEB SCH ×6 (02:55→23:50)
[2018-07-19 03:00] VITALS: BP 91/51
[2018-07-19 03:29] LABS: CLARITY,URINE CLEAR (Clear); COLOR,URINE YELLOW (Yellow); GLUCOSE, URINE NEGATIVE (Neg); KETONES,URINE NEGATIVE (Neg); LEUKOCYTE ESTERASE ,URINE NEGATIVE (Neg); NITRITES, URINE NEGATIVE (Neg); OCCULT BLOOD,URINE NEGATIVE (Neg); PROTEIN,URINE TRACE mg/dl (Neg); UROBILINOGEN,URINE 0.2 E.U/dL (0.2-1.0)
[2018-07-19 03:36] LABS: BACTERIA,URINE NONE SEEN /HPF (Neg); RBC,URINE NONE SEEN /HPF (0-2); SQUAMOUS EPITHELIAL CELL,UR FEW /LPF (FEW); UA COLLECTION TYPE CLN CATCH MIDSTREAM; WBC,URINE NONE SEEN /HPF (0-4)
[2018-07-19 05:12] LABS: BASOPHILS % (AUTO) 0 % (0-1); EOSINOPHILS # (AUTO) 0.1 X10'3 (0-0.9); EOSINOPHILS % (AUTO) 0.9 % (0-6); HEMATOCRIT 29.8 % (35.0-45.0); HEMOGLOBIN 10.6 g/dl (12.0-16.0); LYMPHOCYTES # (AUTO) 0.7 X10'3 (1.1-4.8); LYMPHOCYTES % (AUTO) 6.2 % (21-51); MEAN CORPUSCULAR HEMOGLOBIN 33.7 PG (27.0-31.0); MEAN CORPUSCULAR HGB CONC 35.4 % (33.0-36.5); MEAN CORPUSCULAR VOLUME 95.1 FL (78-98); MEAN PLATELET VOLUME 7.5 FL (7.4-10.4); MONOCYTES # (AUTO) 0.8 X10'3 (0-0.9); MONOCYTES % (AUTO) 6.8 % (2-12); NEUTROPHILS # (AUTO) 9.6 X10'3 (1.8-7.7); NEUTROPHILS % (AUTO) 86.1 % (42-75); PLATELET COUNT 167 X10'3 (140-440); RED BLOOD COUNT 3.13 X10'6 (4.20-5.60); RED CELL DISTRIBUTION WIDTH 13.9 % (11.5-14.5); WHITE BLOOD COUNT 11.2 X10'3 (4.5-11.0)
[2018-07-19 05:50] LABS: ANION GAP 7 (8-16); BLOOD UREA NITROGEN 30 MG/DL (7-18); BUN/CREATININE RATIO 28.8 (6.6-38.0); CALCIUM 9.2 MG/DL (8.5-10.1); CHLORIDE 101 MMOL/L (99-107); CREATININE 1.04 MG/DL (0.40-0.90); GLUCOSE 152 MG/DL (70-104); MAGNESIUM 1.8 MG/DL (1.5-2.4); POTASSIUM 4.5 MMOL/L (3.5-5.1); SODIUM 134 MMOL/L (135-145); TOTAL CARBON DIOXIDE 25.7 MMOL/L (24-32); eGFR 52 ML/MIN
[2018-07-19 06:00] VITALS: BP 118/53
[2018-07-19] MEDS: BUDESONIDE 0.25 MG/2 ML AMPUL.NEB IH SCH ×2 (07:42→19:38)
[2018-07-19] MEDS: K and/or MAG REPLACEMENT MC SCH (08:00)
[2018-07-19] MEDS: GLYCOPYRROLATE IH SCH (08:00)
[2018-07-19] MEDS: FORMOTEROL FUM IH SCH (08:00)
[2018-07-19] MEDS: heparin, porcine 5000 units/ml vial SQ SCH ×2 (08:14→21:29)
[2018-07-19] MEDS: spironolactone 25 MG tablet PO SCH (08:14)
[2018-07-19] MEDS: sodium chloride 1gm tablet PO SCH ×4 (08:14→21:29)
[2018-07-19] MEDS: furosemide 20MG tablet PO SCH (08:14)
[2018-07-19] MEDS: azithromycin 250mg tablet PO SCH (08:14)
[2018-07-19] MEDS: roflumilast 500mcg tablet PO SCH (08:15)
[2018-07-19] MEDS: predniSONE 5mg tablet PO SCH (08:15)
[2018-07-19] MEDS: losartan 25mg tablet PO SCH (08:15)
[2018-07-19] MEDS: amLODIPine 5mg tablet PO SCH (08:15)
[2018-07-19] MEDS: diltiazem CD 120mg capsule (once-daily) PO SCH (08:15)
[2018-07-19 11:00] VITALS: BP 135/67
[2018-07-19] MEDS: normal saline 1000ml 1,000 ML IV SCH (12:09)
[2018-07-19 15:00] VITALS: BP 110/46
[2018-07-19 19:00] VITALS: BP 112/42
[2018-07-19] MEDS: LORazepam 0.5 MG tablet PO PRN (21:29)
[2018-07-19] MEDS: montelukast 10mg tablet PO SCH (21:29)
[2018-07-19] MEDS ORDERED: VANCOMYCIN LEVEL IV NR (22:30)
[2018-07-19 23:00] VITALS: BP 115/50
[2018-07-20] MEDS: piperacillin/tazo 3.375gm/50ml 50 ML IV SCH (02:50)
[2018-07-20 03:00] VITALS: BP 137/63
[2018-07-20] MEDS: ipratropium/albuterol 3ml nebule NEB SCH ×3 (03:49→11:20)
[2018-07-20 05:36] LABS: BASOPHILS % (AUTO) 0.1 % (0-1); EOSINOPHILS # (AUTO) 0.1 X10'3 (0-0.9); EOSINOPHILS % (AUTO) 0.8 % (0-6); HEMATOCRIT 28.7 % (35.0-45.0); LYMPHOCYTES # (AUTO) 1.7 X10'3 (1.1-4.8); LYMPHOCYTES % (AUTO) 19.5 % (21-51); MEAN CORPUSCULAR HEMOGLOBIN 32.9 PG (27.0-31.0); MEAN CORPUSCULAR HGB CONC 34.9 % (33.0-36.5); MEAN CORPUSCULAR VOLUME 94.4 FL (78-98); MEAN PLATELET VOLUME 7.4 FL (7.4-10.4); MONOCYTES # (AUTO) 0.9 X10'3 (0-0.9); MONOCYTES % (AUTO) 10.1 % (2-12); NEUTROPHILS # (AUTO) 6.2 X10'3 (1.8-7.7); NEUTROPHILS % (AUTO) 69.5 % (42-75); PLATELET COUNT 145 X10'3 (140-440); RED BLOOD COUNT 3.04 X10'6 (4.20-5.60); RED CELL DISTRIBUTION WIDTH 14.6 % (11.5-14.5); WHITE BLOOD COUNT 8.9 X10'3 (4.5-11.0)
[2018-07-20 05:53] LABS: ALBUMIN 2.8 G/DL (3.4-5.0); ANION GAP 7 (8-16); BLOOD UREA NITROGEN 27 MG/DL (7-18); BUN/CREATININE RATIO 32.9 (6.6-38.0); CALCIUM 8.7 MG/DL (8.5-10.1); CHLORIDE 106 MMOL/L (99-107); CREATININE 0.82 MG/DL (0.40-0.90); GLUCOSE 83 MG/DL (70-104); MAGNESIUM 1.6 MG/DL (1.5-2.4); POTASSIUM 4.3 MMOL/L (3.5-5.1); SODIUM 139 MMOL/L (135-145); TOTAL CARBON DIOXIDE 25.8 MMOL/L (24-32); eGFR 69 ML/MIN
[2018-07-20 06:00] VITALS: BP 154/64
[2018-07-20] MEDS: K and/or MAG REPLACEMENT MC SCH (08:00)
[2018-07-20] MEDS: heparin, porcine 5000 units/ml vial SQ SCH (08:03)
[2018-07-20] MEDS: predniSONE 5mg tablet PO SCH (08:04)
[2018-07-20] MEDS: roflumilast 500mcg tablet PO SCH (08:04)
[2018-07-20] MEDS: azithromycin 250mg tablet PO SCH (08:04)
[2018-07-20] MEDS: furosemide 20MG tablet PO SCH (08:04)
[2018-07-20] MEDS: sodium chloride 1gm tablet PO SCH (08:04)
[2018-07-20] MEDS: amLODIPine 5mg tablet PO SCH (08:04)
[2018-07-20] MEDS: losartan 25mg tablet PO SCH (08:05)
[2018-07-20] MEDS: spironolactone 25 MG tablet PO SCH (08:05)
[2018-07-20] MEDS: diltiazem CD 120mg capsule (once-daily) PO SCH (08:05)
[2018-07-20] MEDS: BUDESONIDE 0.25 MG/2 ML AMPUL.NEB IH SCH (08:17)
[2018-07-20 11:00] VITALS: BP 133/64
[2018-07-20] MEDS ORDERED: AZI25OT PO (11:13)
== END 2018-07-20 13:49 | DRG 871 ==
LOC: ER 11:24 → ED HOLD 13:37 → PCU 3S 15:13
PROVIDERS: ADMIT Internal Medicine; ATTEND Family Medicine
DX: A41.9 Sepsis, unspecified organism (principal); J96.20 Acute and chronic respiratory failure, unspecified whether with hypoxia or hypercapnia; J69.0 Pneumonitis due to inhalation of food and vomit; E87.1 Hypo-osmolality and hyponatremia; J90 Pleural effusion, not elsewhere classified; E87.2 Acidosis; Z68.41 Body mass index [BMI] 40.0-44.9, adult; J44.1 Chronic obstructive pulmonary disease with (acute) exacerbation; N17.9 Acute kidney failure, unspecified; N18.3 Chronic kidney disease, stage 3 (moderate); E05.90 Thyrotoxicosis, unspecified without thyrotoxic crisis or storm; M19.90 Unspecified osteoarthritis, unspecified site; E87.5 Hyperkalemia; E03.9 Hypothyroidism, unspecified; E78.00 Pure hypercholesterolemia, unspecified; E78.5 Hyperlipidemia, unspecified; E86.0 Dehydration; F41.9 Anxiety disorder, unspecified; G47.33 Obstructive sleep apnea (adult) (pediatric); I12.9 Hypertensive chronic kidney disease with stage 1 through stage 4 chronic kidney disease, or unspecified chronic kidney disease; Z90.710 Acquired absence of both cervix and uterus; Z99.81 Dependence on supplemental oxygen; Z88.5 Allergy status to narcotic agent; Z79.52 Long term (current) use of systemic steroids; Z87.891 Personal history of nicotine dependence; Z71.6 Tobacco abuse counseling
CPT/HCPCS: 36415; 71046; 80048; 80053; 80202; 81001; 83605; 83735; 83880; 84443; 84484; 85025; 87040; 87070; 93005; 93306; 94640; 94760; 96374; 99285; A6212; J0696; J1644; J1956; J2543; J2930; J3370; J7030; J7512

== ENCOUNTER 2019-06-06 19:40 | Inpatient (IN) | payer MEDICARE ==
[~2019-06-06] VITALS: Ht 154.9 cm; Wt 98.0 kg
[~2019-06-06 19:40] MED LIST changes: +ATR0.5NEB IH; +AZI25OT PO; +CARSR60C PO; +FLUT100D2 INH; -FLUT16SP2 BOTHNARES; +GLYC10.7 INH; +LOSA25TA96 PO; +POTA20PA40 PO; +ROFL500T7 PO; +SPIR100T5 PO; -SPIR25TA5 PO; -VALS40TA2 PO
[2019-06-06 20:04] LABS: BASOPHILS % (AUTO) 0.3 % (0-1); EOSINOPHILS # (AUTO) 0.1 X10'3 (0-0.9); EOSINOPHILS % (AUTO) 0.5 % (0-6); HEMATOCRIT 32.3 % (35.0-45.0); HEMOGLOBIN 10.8 g/dl (12.0-16.0); LYMPHOCYTES % (AUTO) 16.7 % (21-51); MEAN CORPUSCULAR HEMOGLOBIN 32.1 PG (27.0-31.0); MEAN CORPUSCULAR HGB CONC 33.4 g/dL (33.0-36.5); MEAN CORPUSCULAR VOLUME 96.1 FL (78-98); MEAN PLATELET VOLUME 7.7 FL (7.4-10.4); MONOCYTES # (AUTO) 1.5 X10'3 (0-0.9); MONOCYTES % (AUTO) 12.9 % (2-12); NEUTROPHILS # (AUTO) 8.3 X10'3 (1.8-7.7); NEUTROPHILS % (AUTO) 69.6 % (42-75); PLATELET COUNT 226 X10'3 (140-440); RED BLOOD COUNT 3.36 X10'6 (4.20-5.60); RED CELL DISTRIBUTION WIDTH 13.3 % (11.5-14.5)
[2019-06-06 20:13] LABS: PARTIAL THROMBOPLASTIN TIME 30 SECONDS (22-32)
[2019-06-06 20:46] LABS: ALANINE AMINOTRANSFERASE 74 U/L (12-78); ALBUMIN 2.7 G/DL (3.4-5.0); ALBUMIN/GLOBULIN RATIO 0.6 (1.1-1.5); ALKALINE PHOSPHATASE 271 IU/L (46-116); ANION GAP 11 (8-16); ASPARTATE AMINO TRANSFERASE 57 U/L (10-37); BILIRUBIN,TOTAL 0.8 MG/DL (0.1-1.0); BLOOD UREA NITROGEN 24 MG/DL (7-18); BUN/CREATININE RATIO 19.4 (6.6-38.0); CALCIUM 8.6 MG/DL (8.5-10.1); CHLORIDE 104 MMOL/L (99-107); CREATININE 1.24 MG/DL (0.40-0.90); GLUCOSE 109 MG/DL (70-104); POTASSIUM 3.8 MMOL/L (3.5-5.1); SODIUM 140 MMOL/L (135-145); TOTAL CARBON DIOXIDE 24.8 MMOL/L (24-32); TOTAL PROTEIN 7.2 G/DL (6.4-8.2); eGFR 43 ML/MIN
[2019-06-06] MEDS ORDERED: levoFLOXACIN-Levaquin 750MG/D5 150 ML IV ONE (21:20)
[2019-06-06] MEDS ORDERED: aspirin 81mg tab.chew PO ONE (21:20)
[2019-06-06] MEDS ORDERED: CefTRIAXone 2gm/D5W 50ml 50 ML IV ONE (21:20)
[2019-06-06] MEDS ORDERED: ipratropium/albuterol 3ml nebule NEB ONE (21:20)
[2019-06-06] MEDS ORDERED: FERR325T28 PO (21:38)
[2019-06-06] MEDS ORDERED: ASPI-1053 PO (21:38)
[2019-06-06] MEDS ORDERED: BUDE0.5A11 NEB (21:38)
[2019-06-06] MEDS ORDERED: ARFO15VI3 NEB (21:38)
[2019-06-06] MEDS ORDERED: REVE175V (21:38)
[2019-06-06] MEDS ORDERED: CARV-50 PO (21:38)
[2019-06-06] MEDS ORDERED: IRBE150T51 PO (21:38)
[2019-06-06] MEDS ORDERED: DOXY100C2 PO (21:39)
[2019-06-06] MEDS ORDERED: acetaminophen 325mg tablet PO PRN ×2 (21:45)
[2019-06-06] MEDS ORDERED: mag hydrox/Alum hydrox/simeth 30ml oral suspension PO PRN (21:45)
[2019-06-06] MEDS ORDERED: magnesium hydroxide 30ml (MOM) UD suspension PO PRN (21:45)
[2019-06-06] MEDS ORDERED: ondansetron/PF 4mg/2ml inj IV PRN (21:45)
[2019-06-06] MEDS ORDERED: HYDROmorphone inj. 0.5 MG/0.5 ML DISP.SYRIN IV PRN (21:45)
[2019-06-06] MEDS ORDERED: furosemide 10 MG/1 ML 10ml inj IV ONE (21:50)
[2019-06-06 23:25] VITALS: BP 147/61
[2019-06-07 02:44] LABS: ALBUMIN 2.4 G/DL (3.4-5.0); ANION GAP 9 (8-16); BLOOD UREA NITROGEN 25 MG/DL (7-18); BUN/CREATININE RATIO 22.5 (6.6-38.0); CALCIUM 8.5 MG/DL (8.5-10.1); CHLORIDE 104 MMOL/L (99-107); CREATININE 1.11 MG/DL (0.40-0.90); GLUCOSE 122 MG/DL (70-104); POTASSIUM 3.5 MMOL/L (3.5-5.1); SODIUM 141 MMOL/L (135-145); TOTAL CARBON DIOXIDE 27.7 MMOL/L (24-32); eGFR 48 ML/MIN
[2019-06-07] MEDS: albuterol 2.5 MG/3 ML nebule NEB SCH ×6 (02:56→23:37)
--- NOTE | 2019-06-07 06:00 | NUR ---
Patient in room ORTHO 4010. I have received report from and had the opportunity to ask questions and assume patient care FRANCO Lopez.
--- NOTE | 2019-06-07 06:37 | NUR ---
report given to enmanuel Pina.
[2019-06-07 07:42] VITALS: BP 157/40
[2019-06-07] MEDS: ROFLUMILAST 250 MCG PO SCH (08:00)
[2019-06-07] MEDS: ferrous sulfate 325mg tablet PO SCH (08:23)
[2019-06-07] MEDS: furosemide 40mg/4ml inj IV SCH ×2 (08:23→20:18)
[2019-06-07] MEDS: aspirin 81mg tab.chew PO SCH (08:23)
[2019-06-07] MEDS: prednisone 10mg tablet PO SCH (08:23)
[2019-06-07] MEDS: losartan 25mg tablet PO SCH (08:23)
[2019-06-07] MEDS: carVEDilol 12.5mg tablet PO SCH ×2 (08:24→20:19)
[2019-06-07] MEDS: nystatin 15 GM powder TP SCH ×3 (08:25→20:18)
[2019-06-07] MEDS: enoxaparin 40mg/0.4ml syringe SUBCUT SCH (08:25)
[2019-06-07 09:29] LABS: BASOPHILS % (AUTO) 0.1 % (0-1); EOSINOPHILS # (AUTO) 0.1 X10'3 (0-0.9); EOSINOPHILS % (AUTO) 0.7 % (0-6); HEMATOCRIT 32.6 % (35.0-45.0); HEMOGLOBIN 10.9 g/dl (12.0-16.0); LYMPHOCYTES # (AUTO) 1.6 X10'3 (1.1-4.8); LYMPHOCYTES % (AUTO) 14.1 % (21-51); MEAN CORPUSCULAR HEMOGLOBIN 31.8 PG (27.0-31.0); MEAN CORPUSCULAR HGB CONC 33.6 g/dL (33.0-36.5); MEAN CORPUSCULAR VOLUME 94.8 FL (78-98); MEAN PLATELET VOLUME 7.9 FL (7.4-10.4); MONOCYTES # (AUTO) 1.1 X10'3 (0-0.9); MONOCYTES % (AUTO) 10.1 % (2-12); NEUTROPHILS # (AUTO) 8.5 X10'3 (1.8-7.7); PLATELET COUNT 241 X10'3 (140-440); RED BLOOD COUNT 3.44 X10'6 (4.20-5.60); RED CELL DISTRIBUTION WIDTH 13.3 % (11.5-14.5); WHITE BLOOD COUNT 11.3 X10'3 (4.5-11.0)
[2019-06-07 10:00] VITALS: BP 121/59
[2019-06-07 18:00] VITALS: BP 133/56
--- NOTE | 2019-06-07 18:15 | NUR ---
Problems reprioritized. Patient report given, questions answered & plan of care reviewed with FRANCO Perez.
[2019-06-07] MEDS: lactobacillus rhamnosus 10,000 MMU CELLS/CAPSULE PO SCH (20:18)
[2019-06-07 22:00] VITALS: BP 121/52
[2019-06-07] MEDS ORDERED: levoFLOXACIN-Levaquin 750MG/D5 150 ML IV SCH (22:00)
[2019-06-08] MEDS: albuterol 2.5 MG/3 ML nebule NEB SCH ×5 (03:01→23:46)
[2019-06-08 06:00] VITALS: BP 145/55
[2019-06-08 06:24] LABS: BASOPHILS % (AUTO) 0.2 % (0-1); EOSINOPHILS % (AUTO) 0.5 % (0-6); HEMATOCRIT 30.8 % (35.0-45.0); HEMOGLOBIN 10.4 g/dl (12.0-16.0); LYMPHOCYTES # (AUTO) 1.5 X10'3 (1.1-4.8); LYMPHOCYTES % (AUTO) 16.7 % (21-51); MEAN CORPUSCULAR HGB CONC 33.7 g/dL (33.0-36.5); MEAN CORPUSCULAR VOLUME 94.7 FL (78-98); MEAN PLATELET VOLUME 7.6 FL (7.4-10.4); MONOCYTES % (AUTO) 11.5 % (2-12); NEUTROPHILS # (AUTO) 6.5 X10'3 (1.8-7.7); NEUTROPHILS % (AUTO) 71.1 % (42-75); PLATELET COUNT 234 X10'3 (140-440); RED BLOOD COUNT 3.25 X10'6 (4.20-5.60); RED CELL DISTRIBUTION WIDTH 13.1 % (11.5-14.5); WHITE BLOOD COUNT 9.1 X10'3 (4.5-11.0)
[2019-06-08 06:33] LABS: ALBUMIN 2.4 G/DL (3.4-5.0); ANION GAP 7 (8-16); BLOOD UREA NITROGEN 27 MG/DL (7-18); BUN/CREATININE RATIO 30.3 (6.6-38.0); CALCIUM 8.8 MG/DL (8.5-10.1); CHLORIDE 106 MMOL/L (99-107); CREATININE 0.89 MG/DL (0.40-0.90); GLUCOSE 115 MG/DL (70-104); POTASSIUM 3.6 MMOL/L (3.5-5.1); SODIUM 143 MMOL/L (135-145); TOTAL CARBON DIOXIDE 29.7 MMOL/L (24-32); eGFR 63 ML/MIN
[2019-06-08] MEDS: furosemide 40mg/4ml inj IV SCH (07:31)
[2019-06-08] MEDS: aspirin 81mg tab.chew PO SCH (07:31)
[2019-06-08] MEDS: ferrous sulfate 325mg tablet PO SCH (07:35)
[2019-06-08] MEDS: lactobacillus rhamnosus 10,000 MMU CELLS/CAPSULE PO SCH ×2 (07:35→19:53)
[2019-06-08] MEDS: enoxaparin 40mg/0.4ml syringe SUBCUT SCH (07:35)
[2019-06-08] MEDS: prednisone 10mg tablet PO SCH (07:35)
[2019-06-08] MEDS: carVEDilol 12.5mg tablet PO SCH ×2 (07:36→19:53)
[2019-06-08] MEDS: losartan 25mg tablet PO SCH (07:36)
[2019-06-08] MEDS: ROFLUMILAST 250 MCG PO SCH (07:38)
[2019-06-08] MEDS: nystatin 15 GM powder TP SCH ×3 (08:00→19:53)
[2019-06-08 10:00] VITALS: BP 122/53
[2019-06-08] MEDS: levoFLOXACIN 500mg tablet PO SCH (15:59)
[2019-06-08 18:00] VITALS: BP 130/45
[2019-06-08 22:00] VITALS: BP 138/42
--- NOTE | 2019-06-08 22:30 | NUR ---
received report from Ana GAMEZ, introduced to patient, and assumed the care of patient. Patient is in no distress, and is currently watching TV comfortably.
[2019-06-09] MEDS: albuterol 2.5 MG/3 ML nebule NEB SCH ×3 (03:50→10:18)
[2019-06-09 06:00] VITALS: BP 148/49
--- NOTE | 2019-06-09 06:30 | NUR ---
Gave report to Amy GAMEZ.
[2019-06-09 06:31] LABS: ALBUMIN 2.4 G/DL (3.4-5.0); ANION GAP 8 (8-16); BLOOD UREA NITROGEN 27 MG/DL (7-18); BUN/CREATININE RATIO 35.1 (6.6-38.0); CALCIUM 9.2 MG/DL (8.5-10.1); CHLORIDE 106 MMOL/L (99-107); CREATININE 0.77 MG/DL (0.40-0.90); GLUCOSE 120 MG/DL (70-104); POTASSIUM 3.7 MMOL/L (3.5-5.1); SODIUM 143 MMOL/L (135-145); TOTAL CARBON DIOXIDE 29.4 MMOL/L (24-32); eGFR 74 ML/MIN
[2019-06-09 06:37] LABS: BASOPHILS % (AUTO) 0.2 % (0-1); EOSINOPHILS # (AUTO) 0.1 X10'3 (0-0.9); EOSINOPHILS % (AUTO) 0.9 % (0-6); HEMATOCRIT 30.8 % (35.0-45.0); HEMOGLOBIN 10.4 g/dl (12.0-16.0); LYMPHOCYTES # (AUTO) 1.7 X10'3 (1.1-4.8); LYMPHOCYTES % (AUTO) 19.5 % (21-51); MEAN CORPUSCULAR HEMOGLOBIN 31.8 PG (27.0-31.0); MEAN CORPUSCULAR HGB CONC 33.6 g/dL (33.0-36.5); MEAN CORPUSCULAR VOLUME 94.7 FL (78-98); MEAN PLATELET VOLUME 7.5 FL (7.4-10.4); MONOCYTES # (AUTO) 1.1 X10'3 (0-0.9); MONOCYTES % (AUTO) 12.4 % (2-12); NEUTROPHILS # (AUTO) 5.7 X10'3 (1.8-7.7); PLATELET COUNT 259 X10'3 (140-440); RED BLOOD COUNT 3.26 X10'6 (4.20-5.60); RED CELL DISTRIBUTION WIDTH 13.2 % (11.5-14.5); WHITE BLOOD COUNT 8.5 X10'3 (4.5-11.0)
--- NOTE | 2019-06-09 06:47 | NUR ---
Patient in room ORTHO 4010. I have received report from Sonya GAMEZ and had the opportunity to ask questions and assume patient care.
[2019-06-09] MEDS ORDERED: proCHLORperazine 10 MG/2 ml inj IV PRN (07:35)
[2019-06-09] MEDS: nystatin 15 GM powder TP SCH (08:00)
[2019-06-09] MEDS ORDERED: furosemide 20MG tablet PO SCH (08:00)
[2019-06-09] MEDS: aspirin 81mg tab.chew PO SCH (09:35)
[2019-06-09] MEDS: prednisone 10mg tablet PO SCH (09:35)
[2019-06-09] MEDS: ferrous sulfate 325mg tablet PO SCH (09:35)
[2019-06-09] MEDS: lactobacillus rhamnosus 10,000 MMU CELLS/CAPSULE PO SCH (09:35)
[2019-06-09] MEDS: levoFLOXACIN 500mg tablet PO SCH (09:35)
[2019-06-09] MEDS: carVEDilol 12.5mg tablet PO SCH (09:35)
[2019-06-09] MEDS: losartan 25mg tablet PO SCH (09:35)
[2019-06-09] MEDS: enoxaparin 40mg/0.4ml syringe SUBCUT SCH (09:36)
[2019-06-09] MEDS: ROFLUMILAST 250 MCG PO SCH (09:41)
== END 2019-06-09 12:08 | disposition home or self-care (01) | DRG 682 ==
LOC: ER 19:40 → ORTHO 4S 23:02 → CMPBEDREQ 06-07 19:45
PROVIDERS: ADMIT Internal Medicine; ATTEND Hospitalist
PROC: 5A09357 Assistance with Respiratory Ventilation, Less than 24 Consecutive Hours, Continuous Positive Airway Pressure (ICD-10-PCS; principal; 2019-06-07)
PROC: 5A09357 Assistance with Respiratory Ventilation, Less than 24 Consecutive Hours, Continuous Positive Airway Pressure (ICD-10-PCS; 2019-06-08)
DX: N17.9 Acute kidney failure, unspecified (principal); J18.9 Pneumonia, unspecified organism; I50.43 Acute on chronic combined systolic (congestive) and diastolic (congestive) heart failure; J44.1 Chronic obstructive pulmonary disease with (acute) exacerbation; J96.11 Chronic respiratory failure with hypoxia; Z68.41 Body mass index [BMI] 40.0-44.9, adult; J44.0 Chronic obstructive pulmonary disease with (acute) lower respiratory infection; I11.0 Hypertensive heart disease with heart failure; I50.813 Acute on chronic right heart failure; I27.81 Cor pulmonale (chronic); M19.90 Unspecified osteoarthritis, unspecified site; E66.01 Morbid (severe) obesity due to excess calories; E78.00 Pure hypercholesterolemia, unspecified; G47.30 Sleep apnea, unspecified; Z87.891 Personal history of nicotine dependence; Z90.710 Acquired absence of both cervix and uterus; Z88.5 Allergy status to narcotic agent; Z79.899 Other long term (current) drug therapy; Z79.82 Long term (current) use of aspirin
CPT/HCPCS: 36415; 71045; 80048; 80053; 83605; 83880; 84145; 84484; 85025; 85610; 85730; 87040; 87081; 93005; 93306; 94640; 94760; 96365; 96368; 96375; 99285; G0378; J0696; J1170; J1650; J1940; J1956; J7512

== ENCOUNTER 2019-07-13 13:16 | Inpatient (IN) | payer MEDICARE ==
[~2019-07-13] VITALS: Ht 154.9 cm; Wt 102.5 kg
[~2019-07-13 13:16] MED LIST changes: -ALBU2.5V7 NEB; -AMLO10TA4 PO; +ARFO15VI3 NEB; +ASPI-1053 PO; -ATR0.5NEB IH; -AZI25OT PO; +BUDE0.5A11 NEB; -CARSR60C PO; +CARV-50 PO; +DOXY100C2 PO; +FERR325T28 PO; -FLUT100D2 INH; -GLYC10.7 INH; +IRBE150T51 PO; -LORA0.5T PO; -LOSA25TA96 PO; -MONT10TA24 PO; +REVE175V; -SPIR100T5 PO
[2019-07-13 13:50] LABS: BASOPHILS % (AUTO) 0.4 % (0-1); EOSINOPHILS # (AUTO) 0.1 X10'3 (0-0.9); EOSINOPHILS % (AUTO) 1.4 % (0-6); HEMATOCRIT 22.8 % (35.0-45.0); HEMOGLOBIN 7.4 g/dl (12.0-16.0); LYMPHOCYTES # (AUTO) 1.1 X10'3 (1.1-4.8); MEAN CORPUSCULAR HEMOGLOBIN 28.6 PG (27.0-31.0); MEAN CORPUSCULAR HGB CONC 32.3 g/dL (33.0-36.5); MEAN CORPUSCULAR VOLUME 88.5 FL (78-98); MEAN PLATELET VOLUME 7.2 FL (7.4-10.4); MONOCYTES # (AUTO) 0.7 X10'3 (0-0.9); NEUTROPHILS # (AUTO) 4.9 X10'3 (1.8-7.7); NEUTROPHILS % (AUTO) 72.2 % (42-75); PLATELET COUNT 262 X10'3 (140-440); RED BLOOD COUNT 2.58 X10'6 (4.20-5.60); RED CELL DISTRIBUTION WIDTH 15.7 % (11.5-14.5); WHITE BLOOD COUNT 6.8 X10'3 (4.5-11.0)
[2019-07-13 14:00] LABS: PARTIAL THROMBOPLASTIN TIME 26 SECONDS (22-32)
[2019-07-13 14:02] LABS: ALANINE AMINOTRANSFERASE 53 U/L (12-78); ALBUMIN 2.9 G/DL (3.4-5.0); ALBUMIN/GLOBULIN RATIO 0.7 (1.1-1.5); ALKALINE PHOSPHATASE 201 IU/L (46-116); ANION GAP 9 (8-16); ASPARTATE AMINO TRANSFERASE 64 U/L (10-37); BILIRUBIN,TOTAL 0.5 MG/DL (0.1-1.0); BLOOD UREA NITROGEN 16 MG/DL (7-18); BUN/CREATININE RATIO 18.2 (6.6-38.0); CALCIUM 8.6 MG/DL (8.5-10.1); CHLORIDE 107 MMOL/L (99-107); CREATININE 0.88 MG/DL (0.40-0.90); GLUCOSE 135 MG/DL (70-104); POTASSIUM 4.3 MMOL/L (3.5-5.1); SODIUM 143 MMOL/L (135-145); TOTAL PROTEIN 7.2 G/DL (6.4-8.2); eGFR 63 ML/MIN
[2019-07-13] MEDS ORDERED: furosemide 40mg/4ml inj IV ONE (14:35)
[2019-07-13] MEDS ORDERED: ipratropium/albuterol 3ml nebule NEB ONE (14:35)
--- NOTE | 2019-07-13 14:49 | NUR ---
PT URINATED 700 ML URINE BEFORE GETTING LASIX.
[2019-07-13] MEDS ORDERED: SPIR25TA5 PO (15:11)
[2019-07-13] MEDS ORDERED: PANT40TA4 PO (15:11)
[2019-07-13] MEDS ORDERED: POTA20TA19 PO (15:11)
[2019-07-13] MEDS ORDERED: FURO40TA4 PO (15:11)
[2019-07-13] MEDS ORDERED: potassium Cl 20 mEq SR tablet PO PRN (15:20)
[2019-07-13] MEDS ORDERED: magnesium 4gm in 100ml NS 100 ML IV PRN (15:20)
[2019-07-13] MEDS ORDERED: potassium CL 10mEq/100ml bag 100 ML IV PRN ×2 (15:20)
[2019-07-13] MEDS ORDERED: magnesium 2GM in 50ml NS 50 ML IV PRN (15:20)
[2019-07-13] MEDS ORDERED: ondansetron/PF 4mg/2ml inj IV PRN (15:20)
--- NOTE | 2019-07-13 15:43 | NUR ---
pt urinated 450 ml of urine.
[2019-07-13] MEDS ORDERED: IPRA4AER INH (16:01)
[2019-07-13] MEDS ORDERED: ASPI81TA52 PO (16:23)
[2019-07-13] MEDS ORDERED: ROFL250T PO (16:23)
[2019-07-13] MEDS ORDERED: IPRA4AER IH (16:23)
[2019-07-13 16:27] LABS: PARTIAL THROMBOPLASTIN TIME 25 SECONDS (22-32)
[2019-07-13] MEDS: normal saline 1000ml 1,000 ML IV SCH (16:29)
[2019-07-13] MEDS ORDERED: IPRA3AMP31 IH (16:41)
[2019-07-13] MEDS ORDERED: PEG 3350/Na sulf,bicarb,Cl/KCl oral sol 4 liter bottle PO ONE (17:20)
--- NOTE | 2019-07-13 17:21 | NUR ---
Received report from Ezekiel GAMEZ, will assess patient when she arrives.
[2019-07-13 17:30] VITALS: BP 150/34
[2019-07-13 18:00] VITALS: BP 156/65
--- NOTE | 2019-07-13 18:36 | NUR ---
Patient in room [facility] 354. I have received report from FRANCO Blancas and had the opportunity to ask questions and assume patient care.
--- NOTE | 2019-07-13 18:48 | NUR ---
Problems reprioritized. Patient report given, questions answered & plan of care reviewed with Tomy GAMEZ. Patient resting, 2 RN skin check completed.
[2019-07-13] MEDS: carVEDilol 12.5mg tablet PO SCH (19:26)
[2019-07-13] MEDS ORDERED: ipratropium/albuterol 3ml nebule NEB PRN (19:45)
[2019-07-13] MEDS: budesonide 0.5mg/2ml UD nebule IH SCH (19:52)
[2019-07-13] MEDS: ipratropium/albuterol 3ml nebule NEB SCH (23:52)
[2019-07-14] VITALS (13 sets, daily range): BP systolic 110–166; BP diastolic 42–76
[2019-07-14] MEDS: normal saline 1000ml 1,000 ML IV SCH ×3 (01:50→21:18)
[2019-07-14] MEDS: ipratropium/albuterol 3ml nebule NEB SCH ×6 (02:57→23:17)
[2019-07-14 05:04] LABS: BASOPHILS % (AUTO) 0.5 % (0-1); EOSINOPHILS # (AUTO) 0.1 X10'3 (0-0.9); HEMATOCRIT 22.7 % (35.0-45.0); HEMOGLOBIN 7.3 g/dl (12.0-16.0); LYMPHOCYTES # (AUTO) 1.2 X10'3 (1.1-4.8); LYMPHOCYTES % (AUTO) 18.6 % (21-51); MEAN CORPUSCULAR HEMOGLOBIN 28.1 PG (27.0-31.0); MEAN CORPUSCULAR HGB CONC 32.3 g/dL (33.0-36.5); MEAN CORPUSCULAR VOLUME 87.1 FL (78-98); MEAN PLATELET VOLUME 7.2 FL (7.4-10.4); MONOCYTES # (AUTO) 0.7 X10'3 (0-0.9); MONOCYTES % (AUTO) 10.7 % (2-12); NEUTROPHILS # (AUTO) 4.3 X10'3 (1.8-7.7); NEUTROPHILS % (AUTO) 68.2 % (42-75); PLATELET COUNT 260 X10'3 (140-440); RED CELL DISTRIBUTION WIDTH 15.3 % (11.5-14.5); WHITE BLOOD COUNT 6.4 X10'3 (4.5-11.0)
[2019-07-14 05:20] LABS: ALBUMIN 2.9 G/DL (3.4-5.0); ANION GAP 7 (8-16); BLOOD UREA NITROGEN 15 MG/DL (7-18); CALCIUM 8.6 MG/DL (8.5-10.1); CHLORIDE 109 MMOL/L (99-107); CREATININE 0.94 MG/DL (0.40-0.90); GLUCOSE 120 MG/DL (70-104); MAGNESIUM 1.7 MG/DL (1.5-2.4); POTASSIUM 4.2 MMOL/L (3.5-5.1); SODIUM 145 MMOL/L (135-145); TOTAL CARBON DIOXIDE 28.6 MMOL/L (24-32); eGFR 59 ML/MIN
--- NOTE | 2019-07-14 06:15 | NUR ---
Patient in room [facility] 354. I have received report from Tomy GAMEZ and had the opportunity to ask questions and assume patient care. Patient is resting in bed, drinking go-lytely. Will continue to monitor.
--- NOTE | 2019-07-14 06:23 | NUR ---
Problems reprioritized. Patient report given, questions answered & plan of care reviewed with FRANCO Avery.
[2019-07-14] MEDS: budesonide 0.5mg/2ml UD nebule IH SCH ×2 (07:30→19:39)
[2019-07-14] MEDS: K and/or MAG REPLACEMENT MC SCH (07:46)
[2019-07-14] MEDS: aspirin 81mg tablet.DR PO SCH (07:54)
[2019-07-14] MEDS: ferrous sulfate 325mg tablet PO SCH ×3 (07:56→18:00)
[2019-07-14] MEDS: carVEDilol 12.5mg tablet PO SCH ×2 (07:58→21:09)
[2019-07-14] MEDS: spironolactone 25 MG tablet PO SCH (07:59)
[2019-07-14] MEDS ORDERED: roflumilast 500mcg tablet PO SCH (08:00)
[2019-07-14] MEDS ORDERED: non-formulary drug (Roflumilast (Daliresp) 1 TAB) PO SCH (08:00)
[2019-07-14] MEDS ORDERED: losartan 50mg tablet PO SCH (08:00)
[2019-07-14] MEDS ORDERED: IRBESARTAN PO SCH (08:00)
[2019-07-14] MEDS: roflumilast 500mcg tablet PO SCH (08:06)
[2019-07-14] MEDS: losartan 25mg tablet PO SCH (11:50)
[2019-07-14 17:07] LABS: HEMATOCRIT 22.4 % (35.0-45.0); HEMOGLOBIN 7.1 g/dl (12.0-16.0); MEAN CORPUSCULAR HGB CONC 31.8 g/dL (33.0-36.5); MEAN CORPUSCULAR VOLUME 88.1 FL (78-98); MEAN PLATELET VOLUME 7.2 FL (7.4-10.4); PLATELET COUNT 262 X10'3 (140-440); RED BLOOD COUNT 2.54 X10'6 (4.20-5.60); RED CELL DISTRIBUTION WIDTH 15.6 % (11.5-14.5)
[2019-07-14] MEDS ORDERED: fentaNYL/PF 50MCG/1 ML 2ML syringe ONE (18:01)
[2019-07-14] MEDS ORDERED: MIDAZolam 5mg/5ml vial ONE (18:02)
--- NOTE | 2019-07-14 18:30 | NUR ---
Received report from FRANCO Avery. Pt is in GI lab. Addendum: 07/14/19 at 1915 by Rm Paulino RN Amended: Links added.
--- NOTE | 2019-07-14 18:47 | NUR ---
Problems reprioritized. Patient report given, questions answered & plan of care reviewed with Janene GAMEZ. Patient is in GI lab.
--- NOTE | 2019-07-14 19:30 | NUR ---
Patient in room [facility] 354. I have received report from RN GI Lab. and had the opportunity to ask questions and assume patient care. Pt brought back to room via w/c, amb to bed. Alert and oriented, no complaints. Pt hungry, cl diet order. cl given. Addendum: 07/14/19 at 194 by Rm Paulino RN Amended: Links added.
[2019-07-14] MEDS: furosemide 40mg/4ml inj IV SCH (21:07)
[2019-07-14] MEDS: pantoprazole 40 MG vial IV SCH (21:07)
[2019-07-14] MEDS: nystatin 15 GM powder TP SCH (21:09)
[2019-07-15] VITALS (8 sets, daily range): BP systolic 119–159; BP diastolic 41–67
[2019-07-15] MEDS: normal saline 1000ml 1,000 ML IV SCH ×2 (00:12→10:41)
[2019-07-15] MEDS: ipratropium/albuterol 3ml nebule NEB SCH ×6 (03:06→22:56)
[2019-07-15 06:14] LABS: BASOPHILS % (AUTO) 0.3 % (0-1); EOSINOPHILS # (AUTO) 0.1 X10'3 (0-0.9); EOSINOPHILS % (AUTO) 1.8 % (0-6); HEMATOCRIT 22.5 % (35.0-45.0); HEMOGLOBIN 7.2 g/dl (12.0-16.0); LYMPHOCYTES # (AUTO) 0.9 X10'3 (1.1-4.8); LYMPHOCYTES % (AUTO) 16.3 % (21-51); MEAN CORPUSCULAR HEMOGLOBIN 27.8 PG (27.0-31.0); MEAN CORPUSCULAR HGB CONC 32.1 g/dL (33.0-36.5); MEAN CORPUSCULAR VOLUME 86.8 FL (78-98); MEAN PLATELET VOLUME 7.3 FL (7.4-10.4); MONOCYTES # (AUTO) 0.5 X10'3 (0-0.9); MONOCYTES % (AUTO) 10.1 % (2-12); NEUTROPHILS # (AUTO) 3.8 X10'3 (1.8-7.7); NEUTROPHILS % (AUTO) 71.5 % (42-75); PLATELET COUNT 248 X10'3 (140-440); RED BLOOD COUNT 2.59 X10'6 (4.20-5.60); RED CELL DISTRIBUTION WIDTH 15.7 % (11.5-14.5); WHITE BLOOD COUNT 5.3 X10'3 (4.5-11.0)
[2019-07-15 06:16] LABS: ALBUMIN 2.8 G/DL (3.4-5.0); ANION GAP 10 (8-16); BLOOD UREA NITROGEN 10 MG/DL (7-18); BUN/CREATININE RATIO 12.8 (6.6-38.0); CALCIUM 8.3 MG/DL (8.5-10.1); CHLORIDE 107 MMOL/L (99-107); CREATININE 0.78 MG/DL (0.40-0.90); GLUCOSE 101 MG/DL (70-104); MAGNESIUM 1.4 MG/DL (1.5-2.4); POTASSIUM 3.6 MMOL/L (3.5-5.1); SODIUM 144 MMOL/L (135-145); TOTAL CARBON DIOXIDE 27.3 MMOL/L (24-32); eGFR 73 ML/MIN
--- NOTE | 2019-07-15 06:30 | NUR ---
Problems reprioritized. Patient report given, questions answered & plan of care reviewed with FRANCO Blancas. Addendum: 07/15/19 at 0642 by Rm Paulino RN Amended: Links added.
[2019-07-15] MEDS: budesonide 0.5mg/2ml UD nebule IH SCH ×2 (07:21→19:09)
[2019-07-15] MEDS: losartan 25mg tablet PO SCH (08:00)
[2019-07-15] MEDS: pantoprazole 40 MG vial IV SCH (08:17)
[2019-07-15] MEDS: ferrous sulfate 325mg tablet PO SCH ×3 (08:17→17:36)
[2019-07-15] MEDS: magnesium Cl slow-release 64mg tablet PO PRN ×2 (08:17→19:55)
[2019-07-15] MEDS: spironolactone 25 MG tablet PO SCH (08:17)
[2019-07-15] MEDS: furosemide 40mg/4ml inj IV SCH ×2 (08:17→19:56)
[2019-07-15] MEDS: carVEDilol 12.5mg tablet PO SCH ×2 (08:18→19:56)
[2019-07-15] MEDS: aspirin 81mg tablet.DR PO SCH (08:18)
[2019-07-15] MEDS: roflumilast 500mcg tablet PO SCH (08:19)
[2019-07-15] MEDS: nystatin 15 GM powder TP SCH ×3 (08:25→19:57)
[2019-07-15] MEDS: K and/or MAG REPLACEMENT MC SCH (08:26)
--- NOTE | 2019-07-15 18:25 | NUR ---
Problems reprioritized. Patient report given, questions answered & plan of care reviewed with kev cline rn.
--- NOTE | 2019-07-15 19:32 | NUR ---
Patient in room [facility] 354. I have received report from FRANCO Blancas and had the opportunity to ask questions and assume patient care. Addendum: 07/15/19 at 1932 by Mallory Downing RN Amended: Links added.
[2019-07-15] MEDS: pantoprazole 40mg Tablet.DR PO SCH (19:56)
[2019-07-15 20:18] LABS: HEMATOCRIT 25.8 % (35.0-45.0); HEMOGLOBIN 8.4 g/dl (12.0-16.0); MEAN CORPUSCULAR HEMOGLOBIN 27.9 PG (27.0-31.0); MEAN CORPUSCULAR HGB CONC 32.4 g/dL (33.0-36.5); MEAN CORPUSCULAR VOLUME 85.9 FL (78-98); MEAN PLATELET VOLUME 7.1 FL (7.4-10.4); PLATELET COUNT 247 X10'3 (140-440); RED CELL DISTRIBUTION WIDTH 15.6 % (11.5-14.5); WHITE BLOOD COUNT 6.2 X10'3 (4.5-11.0)
[2019-07-15] MEDS: acetaminophen 325mg tablet PO PRN (20:20)
[2019-07-16] MEDS: calamine LOTION TP PRN ×4 (00:26→20:30)
[2019-07-16] MEDS: ipratropium/albuterol 3ml nebule NEB SCH ×6 (02:48→22:40)
[2019-07-16] MEDS: normal saline 1000ml 1,000 ML IV SCH ×3 (03:18→23:18)
[2019-07-16 06:31] LABS: BASOPHILS % (AUTO) 0.4 % (0-1); EOSINOPHILS # (AUTO) 0.1 X10'3 (0-0.9); EOSINOPHILS % (AUTO) 1.9 % (0-6); HEMATOCRIT 24.9 % (35.0-45.0); HEMOGLOBIN 8.2 g/dl (12.0-16.0); LYMPHOCYTES # (AUTO) 0.7 X10'3 (1.1-4.8); MEAN CORPUSCULAR HEMOGLOBIN 28.2 PG (27.0-31.0); MEAN CORPUSCULAR HGB CONC 32.8 g/dL (33.0-36.5); MEAN CORPUSCULAR VOLUME 86.1 FL (78-98); MEAN PLATELET VOLUME 7.3 FL (7.4-10.4); MONOCYTES # (AUTO) 0.6 X10'3 (0-0.9); MONOCYTES % (AUTO) 11.6 % (2-12); NEUTROPHILS # (AUTO) 3.9 X10'3 (1.8-7.7); NEUTROPHILS % (AUTO) 72.1 % (42-75); PLATELET COUNT 218 X10'3 (140-440); RED BLOOD COUNT 2.89 X10'6 (4.20-5.60); RED CELL DISTRIBUTION WIDTH 15.8 % (11.5-14.5); WHITE BLOOD COUNT 5.3 X10'3 (4.5-11.0)
--- NOTE | 2019-07-16 06:38 | NUR ---
Problems reprioritized. Patient report given, questions answered & plan of care reviewed with FRANCO Oropeza. Addendum: 07/16/19 at 0639 by Mallory Downing RN Amended: Links added.
[2019-07-16 06:44] LABS: ALBUMIN 2.7 G/DL (3.4-5.0); ANION GAP 9 (8-16); BLOOD UREA NITROGEN 9 MG/DL (7-18); BUN/CREATININE RATIO 11.5 (6.6-38.0); CALCIUM 8.4 MG/DL (8.5-10.1); CHLORIDE 106 MMOL/L (99-107); CREATININE 0.78 MG/DL (0.40-0.90); GLUCOSE 106 MG/DL (70-104); MAGNESIUM 1.4 MG/DL (1.5-2.4); POTASSIUM 3.3 MMOL/L (3.5-5.1); SODIUM 143 MMOL/L (135-145); TOTAL CARBON DIOXIDE 27.7 MMOL/L (24-32); eGFR 73 ML/MIN
[2019-07-16] MEDS: budesonide 0.5mg/2ml UD nebule IH SCH ×2 (06:46→18:51)
--- NOTE | 2019-07-16 07:04 | NUR ---
Patient in room [facility] 354. I have received report from Fabby Parekh RN and had the opportunity to ask questions and assume patient care.
[2019-07-16 08:00] VITALS: BP 152/56
[2019-07-16] MEDS: K and/or MAG REPLACEMENT MC SCH (08:00)
[2019-07-16] MEDS: ferrous sulfate 325mg tablet PO SCH ×3 (08:34→17:52)
[2019-07-16] MEDS: pantoprazole 40mg Tablet.DR PO SCH ×2 (08:34→20:32)
[2019-07-16] MEDS: spironolactone 25 MG tablet PO SCH (08:35)
[2019-07-16] MEDS: carVEDilol 12.5mg tablet PO SCH ×2 (08:35→20:32)
[2019-07-16] MEDS: losartan 25mg tablet PO SCH (08:36)
[2019-07-16] MEDS: furosemide 40mg/4ml inj IV SCH ×2 (08:36→20:32)
[2019-07-16] MEDS: aspirin 81mg tablet.DR PO SCH (08:36)
[2019-07-16] MEDS: roflumilast 500mcg tablet PO SCH (08:43)
[2019-07-16] MEDS: nystatin 15 GM powder TP SCH ×3 (08:50→20:33)
[2019-07-16] MEDS: magnesium Cl slow-release 64mg tablet PO PRN (09:37)
[2019-07-16] MEDS: potassium Cl 20 mEq SR tablet PO PRN ×3 (09:37→13:16)
[2019-07-16 11:00] VITALS: BP 115/49
[2019-07-16] MEDS ORDERED: potassium Cl 20 mEq SR tablet PO PRN ×2 (17:45)
[2019-07-16] MEDS ORDERED: potassium CL 10mEq/100ml bag 100 ML IV PRN (17:45)
[2019-07-16] MEDS ORDERED: magnesium Cl slow-release 64mg tablet PO PRN (17:45)
[2019-07-16] MEDS ORDERED: magnesium 4gm in 100ml NS 100 ML IV PRN (17:45)
[2019-07-16 18:01] LABS: HEMOGLOBIN 8.5 g/dl (12.0-16.0); MEAN CORPUSCULAR HEMOGLOBIN 28.1 PG (27.0-31.0); MEAN CORPUSCULAR HGB CONC 32.7 g/dL (33.0-36.5); MEAN CORPUSCULAR VOLUME 85.9 FL (78-98); MEAN PLATELET VOLUME 7.3 FL (7.4-10.4); PLATELET COUNT 228 X10'3 (140-440); RED BLOOD COUNT 3.03 X10'6 (4.20-5.60); RED CELL DISTRIBUTION WIDTH 15.9 % (11.5-14.5); WHITE BLOOD COUNT 6.6 X10'3 (4.5-11.0)
--- NOTE | 2019-07-16 18:41 | NUR ---
Problems reprioritized. Patient report given, questions answered & plan of care reviewed with Kaylin GAMEZ.
[2019-07-16 19:00] VITALS: BP 130/46
[2019-07-16] MEDS: acetaminophen 325mg tablet PO PRN (20:31)
[2019-07-17] VITALS: BP 117/52
[2019-07-17] MEDS: ipratropium/albuterol 3ml nebule NEB SCH ×6 (02:42→23:29)
[2019-07-17 06:39] LABS: BASOPHILS % (AUTO) 0.4 % (0-1); EOSINOPHILS # (AUTO) 0.1 X10'3 (0-0.9); HEMATOCRIT 26.9 % (35.0-45.0); HEMOGLOBIN 8.7 g/dl (12.0-16.0); LYMPHOCYTES % (AUTO) 16.7 % (21-51); MEAN CORPUSCULAR HEMOGLOBIN 28.3 PG (27.0-31.0); MEAN CORPUSCULAR HGB CONC 32.2 g/dL (33.0-36.5); MEAN CORPUSCULAR VOLUME 87.9 FL (78-98); MEAN PLATELET VOLUME 7.5 FL (7.4-10.4); MONOCYTES # (AUTO) 0.7 X10'3 (0-0.9); MONOCYTES % (AUTO) 12.1 % (2-12); NEUTROPHILS # (AUTO) 4.2 X10'3 (1.8-7.7); NEUTROPHILS % (AUTO) 68.8 % (42-75); PLATELET COUNT 221 X10'3 (140-440); RED BLOOD COUNT 3.06 X10'6 (4.20-5.60); RED CELL DISTRIBUTION WIDTH 15.6 % (11.5-14.5); WHITE BLOOD COUNT 6.1 X10'3 (4.5-11.0)
[2019-07-17 06:44] LABS: ALBUMIN 2.8 G/DL (3.4-5.0); ANION GAP 10 (8-16); BLOOD UREA NITROGEN 10 MG/DL (7-18); BUN/CREATININE RATIO 11.5 (6.6-38.0); CALCIUM 8.7 MG/DL (8.5-10.1); CHLORIDE 105 MMOL/L (99-107); CREATININE 0.87 MG/DL (0.40-0.90); GLUCOSE 106 MG/DL (70-104); MAGNESIUM 1.4 MG/DL (1.5-2.4); POTASSIUM 3.6 MMOL/L (3.5-5.1); SODIUM 144 MMOL/L (135-145); TOTAL CARBON DIOXIDE 28.7 MMOL/L (24-32); eGFR 64 ML/MIN
--- NOTE | 2019-07-17 06:48 | NUR ---
Problems reprioritized. Patient report given, questions answered & plan of care reviewed with Hanane GAMEZ. Addendum: 07/17/19 at 0648 by Kaylin Beyer RN Amended: Links added.
[2019-07-17 07:00] VITALS: BP 141/57
--- NOTE | 2019-07-17 07:21 | NUR ---
Patient in room [facility] 354. I have received report from Kaylin GAMEZ and had the opportunity to ask questions and assume patient care.
[2019-07-17] MEDS: budesonide 0.5mg/2ml UD nebule IH SCH ×2 (07:24→19:45)
[2019-07-17] MEDS ORDERED: diphenhydrAMINE 25mg capsule PO ONE (07:50)
[2019-07-17] MEDS: roflumilast 500mcg tablet PO SCH (07:58)
[2019-07-17] MEDS: carVEDilol 12.5mg tablet PO SCH ×2 (07:58→20:16)
[2019-07-17] MEDS: aspirin 81mg tablet.DR PO SCH (07:58)
[2019-07-17] MEDS: spironolactone 25 MG tablet PO SCH (07:58)
[2019-07-17] MEDS: furosemide 40mg/4ml inj IV SCH ×3 (07:59→21:45)
[2019-07-17] MEDS: pantoprazole 40mg Tablet.DR PO SCH ×2 (07:59→20:16)
[2019-07-17] MEDS: losartan 25mg tablet PO SCH (07:59)
[2019-07-17] MEDS: ferrous sulfate 325mg tablet PO SCH ×3 (07:59→16:35)
[2019-07-17] MEDS: K and/or MAG REPLACEMENT MC SCH (08:00)
[2019-07-17] MEDS: normal saline 1000ml 1,000 ML IV SCH ×2 (09:18→16:35)
[2019-07-17] MEDS: nystatin 15 GM powder TP SCH ×3 (09:23→20:16)
[2019-07-17] MEDS: calamine LOTION TP PRN (09:24)
[2019-07-17 11:00] VITALS: BP 131/45
[2019-07-17] MEDS: valacyclovir 500mg tablet PO SCH ×2 (16:50→23:23)
--- NOTE | 2019-07-17 18:20 | NUR ---
Patient in room [facility] 354. I have received report from Hanane GAMEZ and had the opportunity to ask questions and assume patient care.
[2019-07-17] MEDS ORDERED: potassium CL 10mEq/100ml bag 100 ML IV PRN ×2 (18:30→18:40)
[2019-07-17] MEDS ORDERED: magnesium Cl slow-release 64mg tablet PO PRN (18:30)
[2019-07-17] MEDS ORDERED: magnesium 4gm in 100ml NS 100 ML IV PRN ×2 (18:30→18:40)
[2019-07-17] MEDS ORDERED: potassium Cl 20 mEq SR tablet PO PRN ×3 (18:30→18:40)
--- NOTE | 2019-07-17 18:43 | NUR ---
Problems reprioritized. Patient report given, questions answered & plan of care reviewed with Jayden GAMEZ.
[2019-07-17 20:00] VITALS: BP 127/58
[2019-07-17] MEDS: magnesium Cl slow-release 64mg tablet PO PRN (23:23)
[2019-07-18] VITALS: BP 139/56
[2019-07-18] MEDS: ipratropium/albuterol 3ml nebule NEB SCH ×6 (03:24→22:43)
[2019-07-18] MEDS: normal saline 1000ml 1,000 ML IV SCH ×2 (05:18→17:36)
--- NOTE | 2019-07-18 06:06 | NUR ---
Problems reprioritized. Patient report given, questions answered & plan of care reviewed with Johnna GAMEZ.
[2019-07-18 06:24] LABS: BASOPHILS % (AUTO) 0.5 % (0-1); EOSINOPHILS # (AUTO) 0.1 X10'3 (0-0.9); EOSINOPHILS % (AUTO) 1.6 % (0-6); HEMATOCRIT 25.5 % (35.0-45.0); HEMOGLOBIN 8.4 g/dl (12.0-16.0); LYMPHOCYTES # (AUTO) 1.5 X10'3 (1.1-4.8); LYMPHOCYTES % (AUTO) 23.8 % (21-51); MEAN CORPUSCULAR HEMOGLOBIN 28.4 PG (27.0-31.0); MEAN CORPUSCULAR HGB CONC 32.8 g/dL (33.0-36.5); MEAN CORPUSCULAR VOLUME 86.7 FL (78-98); MEAN PLATELET VOLUME 7.5 FL (7.4-10.4); MONOCYTES # (AUTO) 0.9 X10'3 (0-0.9); MONOCYTES % (AUTO) 13.8 % (2-12); NEUTROPHILS # (AUTO) 3.9 X10'3 (1.8-7.7); NEUTROPHILS % (AUTO) 60.3 % (42-75); PLATELET COUNT 207 X10'3 (140-440); RED BLOOD COUNT 2.94 X10'6 (4.20-5.60); RED CELL DISTRIBUTION WIDTH 16.5 % (11.5-14.5); WHITE BLOOD COUNT 6.4 X10'3 (4.5-11.0)
[2019-07-18 07:00] VITALS: BP 149/56
[2019-07-18 07:00] LABS: ALBUMIN 2.6 G/DL (3.4-5.0); ANION GAP 11 (8-16); BLOOD UREA NITROGEN 12 MG/DL (7-18); CALCIUM 8.4 MG/DL (8.5-10.1); CHLORIDE 105 MMOL/L (99-107); CREATININE 0.92 MG/DL (0.40-0.90); GLUCOSE 110 MG/DL (70-104); MAGNESIUM 1.4 MG/DL (1.5-2.4); POTASSIUM 3.3 MMOL/L (3.5-5.1); SODIUM 143 MMOL/L (135-145); TOTAL CARBON DIOXIDE 27.1 MMOL/L (24-32); eGFR 60 ML/MIN
--- NOTE | 2019-07-18 07:00 | NUR ---
Patient in room [facility] 354. I have received report from Jayden GAMEZ and had the opportunity to ask questions and assume patient care.
[2019-07-18] MEDS: acetaminophen 325mg tablet PO PRN ×2 (07:37→17:34)
[2019-07-18] MEDS: budesonide 0.5mg/2ml UD nebule IH SCH ×2 (07:50→19:32)
[2019-07-18] MEDS: K and/or MAG REPLACEMENT MC SCH (08:00)
[2019-07-18] MEDS: losartan 25mg tablet PO SCH (09:05)
[2019-07-18] MEDS: carVEDilol 12.5mg tablet PO SCH ×2 (09:05→20:47)
[2019-07-18] MEDS: aspirin 81mg tablet.DR PO SCH (09:05)
[2019-07-18] MEDS: spironolactone 25 MG tablet PO SCH (09:05)
[2019-07-18] MEDS: ferrous sulfate 325mg tablet PO SCH ×3 (09:06→17:30)
[2019-07-18] MEDS: roflumilast 500mcg tablet PO SCH (09:06)
[2019-07-18] MEDS: pantoprazole 40mg Tablet.DR PO SCH ×2 (09:06→20:47)
[2019-07-18] MEDS: valacyclovir 500mg tablet PO SCH ×2 (09:06→17:30)
[2019-07-18] MEDS: potassium Cl 20 mEq SR tablet PO PRN ×3 (09:07→20:49)
[2019-07-18] MEDS: magnesium Cl slow-release 64mg tablet PO PRN ×2 (09:07→20:49)
[2019-07-18] MEDS: nystatin 15 GM powder TP SCH ×3 (09:08→21:00)
[2019-07-18] MEDS: furosemide 40mg/4ml inj IV SCH ×2 (10:17→20:47)
[2019-07-18 11:00] VITALS: BP 131/57
--- NOTE | 2019-07-18 18:13 | NUR ---
patient was seen by Dr flores, all cares continue. patient is on valtrex for shingles poutbreak. up ad darrian in room. For possible surgery tomorrow , DR Barker will be deeing patient to evaluate. Report given to Maribell GAMEZ
[2019-07-18 19:00] VITALS: BP 138/59
[2019-07-18 23:00] VITALS: BP 135/47
[2019-07-19] MEDS: valacyclovir 500mg tablet PO SCH ×2 (00:06→09:12)
[2019-07-19] MEDS: normal saline 1000ml 1,000 ML IV SCH ×2 (01:18→03:11)
[2019-07-19] MEDS: ipratropium/albuterol 3ml nebule NEB SCH ×2 (03:04→07:31)
[2019-07-19 06:21] LABS: MAGNESIUM 1.5 MG/DL (1.5-2.4)
--- NOTE | 2019-07-19 06:44 | NUR ---
Problems reprioritized. Patient report given, questions answered & plan of care reviewed with
--- NOTE | 2019-07-19 07:14 | NUR ---
Patient in room [facility] 353. I have received report from CHARLOTTE GAMEZ and had the opportunity to ask questions and assume patient care.
[2019-07-19] MEDS: budesonide 0.5mg/2ml UD nebule IH SCH (07:31)
[2019-07-19 08:00] VITALS: BP 148/71
[2019-07-19] MEDS: K and/or MAG REPLACEMENT MC SCH (08:00)
[2019-07-19 08:45] LABS: POTASSIUM 3.7 MMOL/L (3.5-5.1)
[2019-07-19] MEDS: furosemide 40mg/4ml inj IV SCH (09:09)
[2019-07-19] MEDS: losartan 25mg tablet PO SCH (09:10)
[2019-07-19] MEDS: carVEDilol 12.5mg tablet PO SCH (09:10)
[2019-07-19] MEDS: aspirin 81mg tablet.DR PO SCH (09:11)
[2019-07-19] MEDS: ferrous sulfate 325mg tablet PO SCH (09:11)
[2019-07-19] MEDS: pantoprazole 40mg Tablet.DR PO SCH (09:11)
[2019-07-19] MEDS: spironolactone 25 MG tablet PO SCH (09:12)
[2019-07-19] MEDS: nystatin 15 GM powder TP SCH (09:13)
[2019-07-19] MEDS: acetaminophen 325mg tablet PO PRN (09:14)
[2019-07-19] MEDS: roflumilast 500mcg tablet PO SCH (09:31)
--- NOTE | 2019-07-19 09:51 | NUR ---
Initial: patient presented to ED with lightheadedness and weakness, history of HTN, anxiety, CHF, COPD, sleep apnea. Admitted with GI bleed secondary to internal hemorrhoids per MD note. Per CM note surgery was scheduled friday however was cancelled d/t outbreak of Shingles. Nutritionally patient is doing well and has no problems, great appetite, eating 75-100% of meals. Will continue to follow. Recommend: 1. continue regular diet 2. weight per rx Addendum: 07/19/19 at [address] Amended: Links added.
[2019-07-19] MEDS ORDERED: VALA500T37 PO (09:59)
--- NOTE | 2019-07-19 12:16 | NUR ---
Patient D/C home per Dr. Fonseca. IV removed, cath. intact. Medication list and instruction given. Patient wheeled downstair left facility with son by private vehicle.
== END 2019-07-19 11:28 | disposition home health service (06) | DRG 394 ==
LOC: ER 13:16 → SUR 3N 17:23
PROVIDERS: ADMIT Internal Medicine; ATTEND Internal Medicine
PROC: 0DBK8ZZ Excision of Ascending Colon, Via Natural or Artificial Opening Endoscopic (ICD-10-PCS; principal; 2019-07-14)
PROC: 5A09357 Assistance with Respiratory Ventilation, Less than 24 Consecutive Hours, Continuous Positive Airway Pressure (ICD-10-PCS; 2019-07-14)
PROC: 30233N1 Transfusion of Nonautologous Red Blood Cells into Peripheral Vein, Percutaneous Approach (ICD-10-PCS; 2019-07-15)
PROC: 5A09357 Assistance with Respiratory Ventilation, Less than 24 Consecutive Hours, Continuous Positive Airway Pressure (ICD-10-PCS; 2019-07-15)
PROC: 5A09357 Assistance with Respiratory Ventilation, Less than 24 Consecutive Hours, Continuous Positive Airway Pressure (ICD-10-PCS; 2019-07-16)
PROC: 5A09357 Assistance with Respiratory Ventilation, Less than 24 Consecutive Hours, Continuous Positive Airway Pressure (ICD-10-PCS; 2019-07-17)
PROC: 5A09357 Assistance with Respiratory Ventilation, Less than 24 Consecutive Hours, Continuous Positive Airway Pressure (ICD-10-PCS; 2019-07-18)
DX: K64.8 Other hemorrhoids (principal); J96.10 Chronic respiratory failure, unspecified whether with hypoxia or hypercapnia; D62 Acute posthemorrhagic anemia; B02.9 Zoster without complications; D12.2 Benign neoplasm of ascending colon; E78.00 Pure hypercholesterolemia, unspecified; G47.30 Sleep apnea, unspecified; I11.0 Hypertensive heart disease with heart failure; I50.9 Heart failure, unspecified; K57.30 Diverticulosis of large intestine without perforation or abscess without bleeding; L29.9 Pruritus, unspecified; F41.9 Anxiety disorder, unspecified; M19.90 Unspecified osteoarthritis, unspecified site; Z88.6 Allergy status to analgesic agent; Z79.82 Long term (current) use of aspirin; Z79.899 Other long term (current) drug therapy; Z87.891 Personal history of nicotine dependence; Z90.710 Acquired absence of both cervix and uterus; Z99.81 Dependence on supplemental oxygen
CPT/HCPCS: 36415; 45382; 45385; 71045; 80048; 80053; 83735; 84132; 84484; 85025; 85027; 85610; 85730; 86885; 86900; 86901; 86920; 87081; 88305; 93005; 94640; 94760; 96374; 99152; 99153; 99285; A4620; C1773; C9113; G0378; J1940; J2250; J3010; J7030; J7040; J7626; P9016; Q0163

== ENCOUNTER 2019-09-04 10:38 | Inpatient (IN) | payer MEDICARE ==
[2019-09-04] VITALS (7 sets, daily range): BP systolic 117–136; BP diastolic 32–58
[~2019-09-04] VITALS: Ht 154.9 cm; Wt 95.0 kg
[~2019-09-04 10:38] MED LIST changes: -ARFO15VI3 NEB; -ASPI-1053 PO; +ASPI81TA52 PO; -DOXY100C2 PO; -FURO-150 PO; +FURO40TA4 PO; +IPRA3AMP31 IH; +IPRA4AER INH; +PANT40TA4 PO; -POTA20PA40 PO; +POTA20TA19 PO; -PRED5TAB PO; -REVE175V; +ROFL250T PO; -ROFL500T7 PO; +SPIR25TA5 PO; +VALA500T37 PO
[2019-09-04 11:07] LABS: BASOPHILS % (AUTO) 0.1 % (0-1); EOSINOPHILS # (AUTO) 0.1 X10'3 (0-0.9); EOSINOPHILS % (AUTO) 1.9 % (0-6); LYMPHOCYTES # (AUTO) 1.1 X10'3 (1.1-4.8); LYMPHOCYTES % (AUTO) 15.4 % (21-51); MEAN CORPUSCULAR HEMOGLOBIN 25.6 PG (27.0-31.0); MEAN CORPUSCULAR HGB CONC 31.1 g/dL (33.0-36.5); MEAN CORPUSCULAR VOLUME 82.3 FL (78-98); MEAN PLATELET VOLUME 7.3 FL (7.4-10.4); MONOCYTES # (AUTO) 0.8 X10'3 (0-0.9); MONOCYTES % (AUTO) 11.3 % (2-12); NEUTROPHILS % (AUTO) 71.3 % (42-75); PLATELET COUNT 228 X10'3 (140-440); RED BLOOD COUNT 2.08 X10'6 (4.20-5.60); RED CELL DISTRIBUTION WIDTH 17.9 % (11.5-14.5)
[2019-09-04 11:25] LABS: HEMATOCRIT 17.1 % (35.0-45.0); HEMOGLOBIN 5.3 g/dl (12.0-16.0)
[2019-09-04 11:28] LABS: ALANINE AMINOTRANSFERASE 34 U/L (12-78); ALBUMIN 2.5 G/DL (3.4-5.0); ALBUMIN/GLOBULIN RATIO 0.5 (1.1-1.5); ALKALINE PHOSPHATASE 235 IU/L (46-116); ANION GAP 3 (8-16); ASPARTATE AMINO TRANSFERASE 55 U/L (10-37); BILIRUBIN,TOTAL 0.4 MG/DL (0.1-1.0); BLOOD UREA NITROGEN 21 MG/DL (7-18); BUN/CREATININE RATIO 24.4 (6.6-38.0); CALCIUM 8.6 MG/DL (8.5-10.1); CHLORIDE 108 MMOL/L (99-107); CREATININE 0.86 MG/DL (0.40-0.90); GLUCOSE 138 MG/DL (70-104); POTASSIUM 4.2 MMOL/L (3.5-5.1); SODIUM 141 MMOL/L (135-145); TOTAL PROTEIN 7.2 G/DL (6.4-8.2); eGFR 65 ML/MIN
[2019-09-04] MEDS ORDERED: normal saline 1000ml 1,000 ML IV SCH (11:50)
[2019-09-04] MEDS ORDERED: furosemide 40mg/4ml inj IV ONE (11:55)
--- NOTE | 2019-09-04 12:24 | NUR ---
notified about bp 119/58 prior to 80 mg of lasix and he okayed administration
[2019-09-04] MEDS ORDERED: acetaminophen 325mg tablet PO PRN ×2 (13:15)
[2019-09-04] MEDS ORDERED: magnesium 4gm in 100ml NS 100 ML IV PRN (13:15)
[2019-09-04] MEDS ORDERED: magnesium Cl slow-release 64mg tablet PO PRN (13:15)
[2019-09-04] MEDS ORDERED: potassium Cl 20 mEq SR tablet PO PRN ×2 (13:15)
[2019-09-04] MEDS ORDERED: potassium CL 10mEq/100ml bag 100 ML IV PRN ×2 (13:15)
[2019-09-04] MEDS ORDERED: ondansetron/PF 4mg/2ml inj IV PRN (13:15)
[2019-09-04] MEDS ORDERED: magnesium 2GM in 50ml NS 50 ML IV PRN (13:15)
[2019-09-04] MEDS ORDERED: REVE175V (13:38)
--- NOTE | 2019-09-04 14:08 | NUR ---
cardiology called 1407, enroute to preform echocardiogram.
--- NOTE | 2019-09-04 14:50 | NUR ---
pt tolerating blood transfusion well, adjusted rate up to 175ml/hr. receiving rn was made aware.
[2019-09-04] MEDS ORDERED: albuterol 2.5 MG/3 ML nebule NEB SCH (16:00)
[2019-09-04] MEDS ORDERED: FLU VACC QS 2019-20 (6 MOS UP) 60 MCG/0.5 ML VIAL IMVAC ONE (16:05)
[2019-09-04] MEDS ORDERED: pneumococcal 23-VAL P-sac vacc 25 mcg/0.5ml vial IMVAC ONE (16:05)
[2019-09-04] MEDS ORDERED: albuterol 2.5 MG/3 ML nebule NEB PRN (17:20)
--- NOTE | 2019-09-04 18:00 | NUR ---
Patient in room PCU 3026. I have received report from BERTO GAMEZ and had the opportunity to ask questions and assume patient care.
--- NOTE | 2019-09-04 18:12 | NUR ---
Problems reprioritized. Patient report given, questions answered & plan of care reviewed with FRANCO Suarez.
[2019-09-04 18:13] LABS: HEMATOCRIT 22.8 % (35.0-45.0); HEMOGLOBIN 7.3 g/dl (12.0-16.0); MEAN CORPUSCULAR HEMOGLOBIN 26.4 PG (27.0-31.0); MEAN CORPUSCULAR HGB CONC 32.1 g/dL (33.0-36.5); MEAN CORPUSCULAR VOLUME 82.2 FL (78-98); MEAN PLATELET VOLUME 7.3 FL (7.4-10.4); PLATELET COUNT 279 X10'3 (140-440); RED BLOOD COUNT 2.78 X10'6 (4.20-5.60); RED CELL DISTRIBUTION WIDTH 16.8 % (11.5-14.5); WHITE BLOOD COUNT 8.2 X10'3 (4.5-11.0)
--- NOTE | 2019-09-04 18:30 | NUR ---
PAGER ID: [phone] MESSAGE: [id number] Lucy Brunner: H&H after first unit of blood is 7.3 and 22.8. Do you want the second unit still or are you good with this one unit are the H&H? (Daniela is the nurse taking over). FRANCO Jean Ext [phone]
[2019-09-04] MEDS: carVEDilol 12.5mg tablet PO SCH (19:56)
[2019-09-04] MEDS: docusate sod 100mg capsule PO SCH (19:57)
[2019-09-04] MEDS ORDERED: budesonide 0.5mg/2ml UD nebule IH SCH (20:00)
[2019-09-04] MEDS ORDERED: ipratropium/albuterol 3ml nebule IH SCH (20:00)
[2019-09-04] MEDS: ipratropium/albuterol 3ml nebule NEB SCH ×2 (20:10→23:29)
[2019-09-04] MEDS: budesonide 0.5mg/2ml UD nebule IH SCH (20:10)
[2019-09-04] MEDS ORDERED: ALBUTEROL SULFATE INH SCH (21:00)
[2019-09-04] MEDS ORDERED: IPRATROPIUM INH SCH (21:00)
[2019-09-04] MEDS ORDERED: [UNRECOGNIZED DRUG - OTHER] INH SCH (21:00)
[2019-09-04] MEDS: nystatin/triamcinolone cream 15gm TP SCH (22:45)
[2019-09-05] VITALS (11 sets, daily range): BP systolic 89–142; BP diastolic 31–51
[2019-09-05 00:44] LABS: ALANINE AMINOTRANSFERASE 32 U/L (12-78); ALBUMIN 2.4 G/DL (3.4-5.0); ALBUMIN/GLOBULIN RATIO 0.5 (1.1-1.5); ALKALINE PHOSPHATASE 225 IU/L (46-116); ANION GAP 3 (8-16); ASPARTATE AMINO TRANSFERASE 46 U/L (10-37); BILIRUBIN,TOTAL 0.6 MG/DL (0.1-1.0); BLOOD UREA NITROGEN 21 MG/DL (7-18); BUN/CREATININE RATIO 23.9 (6.6-38.0); CALCIUM 8.5 MG/DL (8.5-10.1); CHLORIDE 105 MMOL/L (99-107); CREATININE 0.88 MG/DL (0.40-0.90); GLUCOSE 151 MG/DL (70-104); POTASSIUM 4.3 MMOL/L (3.5-5.1); SODIUM 139 MMOL/L (135-145); TOTAL CARBON DIOXIDE 31.2 MMOL/L (24-32); TOTAL PROTEIN 7.2 G/DL (6.4-8.2); eGFR 63 ML/MIN
[2019-09-05 00:45] LABS: BASOPHILS % (AUTO) 0.1 % (0-1); EOSINOPHILS # (AUTO) 0.1 X10'3 (0-0.9); EOSINOPHILS % (AUTO) 1.6 % (0-6); LYMPHOCYTES # (AUTO) 1.3 X10'3 (1.1-4.8); LYMPHOCYTES % (AUTO) 17.1 % (21-51); MEAN CORPUSCULAR HGB CONC 32.9 g/dL (33.0-36.5); MEAN CORPUSCULAR VOLUME 82.1 FL (78-98); MEAN PLATELET VOLUME 7.4 FL (7.4-10.4); MONOCYTES # (AUTO) 0.7 X10'3 (0-0.9); MONOCYTES % (AUTO) 9.7 % (2-12); NEUTROPHILS # (AUTO) 5.4 X10'3 (1.8-7.7); NEUTROPHILS % (AUTO) 71.5 % (42-75); PLATELET COUNT 238 X10'3 (140-440); RED BLOOD COUNT 2.45 X10'6 (4.20-5.60); WHITE BLOOD COUNT 7.6 X10'3 (4.5-11.0)
[2019-09-05 01:00] LABS: HEMATOCRIT 20.1 % (35.0-45.0); HEMOGLOBIN 6.6 g/dl (12.0-16.0)
--- NOTE | 2019-09-05 01:10 | NUR ---
SPOKE TO DR. ALVARENGA TO REPORT CRITICAL LABS OF HGB 6.6 AND HCT 20.1, COLETTE ORDERED 2 UNITS OF BLOOD TO BE GIVEN.
[2019-09-05] MEDS: ipratropium/albuterol 3ml nebule NEB SCH ×6 (03:20→23:27)
--- NOTE | 2019-09-05 06:00 | NUR ---
Problems reprioritized. Patient report given, questions answered & plan of care reviewed with Ted GAMEZ.
[2019-09-05 06:43] LABS: HEMATOCRIT 23.1 % (35.0-45.0); HEMOGLOBIN 7.4 g/dl (12.0-16.0); MEAN CORPUSCULAR HEMOGLOBIN 26.7 PG (27.0-31.0); MEAN CORPUSCULAR HGB CONC 32.2 g/dL (33.0-36.5); MEAN PLATELET VOLUME 7.3 FL (7.4-10.4); PLATELET COUNT 252 X10'3 (140-440); RED BLOOD COUNT 2.79 X10'6 (4.20-5.60); RED CELL DISTRIBUTION WIDTH 16.9 % (11.5-14.5); WHITE BLOOD COUNT 7.6 X10'3 (4.5-11.0)
[2019-09-05] MEDS: K and/or MAG REPLACEMENT MC SCH (07:04)
[2019-09-05] MEDS: furosemide 40mg/4ml inj IV SCH (07:54)
[2019-09-05] MEDS: carVEDilol 12.5mg tablet PO SCH ×2 (07:55→20:13)
[2019-09-05] MEDS: losartan 50mg tablet PO SCH (07:55)
[2019-09-05] MEDS: docusate sod 100mg capsule PO SCH ×2 (07:55→20:00)
[2019-09-05] MEDS: potassium Cl 20 mEq SR tablet PO SCH (07:55)
[2019-09-05] MEDS: aspirin 81mg tablet.DR PO SCH (07:55)
[2019-09-05] MEDS: pantoprazole 40mg Tablet.DR PO SCH (07:55)
[2019-09-05] MEDS: nystatin/triamcinolone cream 15gm TP SCH ×2 (08:00→20:09)
[2019-09-05] MEDS: budesonide 0.5mg/2ml UD nebule IH SCH ×2 (08:10→20:22)
[2019-09-05] MEDS: roflumilast 500mcg tablet PO SCH (08:26)
--- NOTE | 2019-09-05 18:09 | NUR ---
Problems reprioritized. Patient report given, questions answered & plan of care reviewed with FRANCO Lloyd.
--- NOTE | 2019-09-05 18:18 | NUR ---
Patient in room PCU 3026. I have received report from FRANCO Jean and had the opportunity to ask questions and assume patient care.
[2019-09-06 02:00] VITALS: BP 121/40
[2019-09-06] MEDS: ipratropium/albuterol 3ml nebule NEB SCH ×3 (03:29→11:36)
[2019-09-06 05:37] LABS: BASOPHILS % (AUTO) 0.3 % (0-1); EOSINOPHILS # (AUTO) 0.2 X10'3 (0-0.9); EOSINOPHILS % (AUTO) 1.8 % (0-6); HEMATOCRIT 24.8 % (35.0-45.0); HEMOGLOBIN 8.1 g/dl (12.0-16.0); LYMPHOCYTES # (AUTO) 1.3 X10'3 (1.1-4.8); LYMPHOCYTES % (AUTO) 14.7 % (21-51); MEAN CORPUSCULAR HEMOGLOBIN 27.1 PG (27.0-31.0); MEAN CORPUSCULAR HGB CONC 32.6 g/dL (33.0-36.5); MEAN CORPUSCULAR VOLUME 83.1 FL (78-98); MEAN PLATELET VOLUME 7.6 FL (7.4-10.4); MONOCYTES # (AUTO) 0.8 X10'3 (0-0.9); MONOCYTES % (AUTO) 9.4 % (2-12); NEUTROPHILS # (AUTO) 6.3 X10'3 (1.8-7.7); NEUTROPHILS % (AUTO) 73.8 % (42-75); PLATELET COUNT 254 X10'3 (140-440); RED BLOOD COUNT 2.99 X10'6 (4.20-5.60); RED CELL DISTRIBUTION WIDTH 16.9 % (11.5-14.5); WHITE BLOOD COUNT 8.5 X10'3 (4.5-11.0)
[2019-09-06 05:49] LABS: ALANINE AMINOTRANSFERASE 13 U/L (12-78); ALBUMIN 2.7 G/DL (3.4-5.0); ALBUMIN/GLOBULIN RATIO 0.5 (1.1-1.5); ALKALINE PHOSPHATASE 254 IU/L (46-116); ANION GAP 5 (8-16); ASPARTATE AMINO TRANSFERASE 70 U/L (10-37); BILIRUBIN,TOTAL 0.7 MG/DL (0.1-1.0); BLOOD UREA NITROGEN 21 MG/DL (7-18); BUN/CREATININE RATIO 24.4 (6.6-38.0); CALCIUM 8.6 MG/DL (8.5-10.1); CHLORIDE 103 MMOL/L (99-107); CREATININE 0.86 MG/DL (0.40-0.90); GLUCOSE 124 MG/DL (70-104); MAGNESIUM 2.1 MG/DL (1.5-2.4); POTASSIUM 4.3 MMOL/L (3.5-5.1); SODIUM 138 MMOL/L (135-145); TOTAL CARBON DIOXIDE 29.7 MMOL/L (24-32); TOTAL PROTEIN 7.9 G/DL (6.4-8.2); eGFR 65 ML/MIN
[2019-09-06 06:00] VITALS: BP 128/51
--- NOTE | 2019-09-06 06:25 | NUR ---
Problems reprioritized. Patient report given, questions answered & plan of care reviewed with FRANCO Velez.
--- NOTE | 2019-09-06 06:49 | NUR ---
Patient in room PCU 3026. I have received report from FRANCO Lloyd and had the opportunity to ask questions and assume patient care.
[2019-09-06] MEDS: budesonide 0.5mg/2ml UD nebule IH SCH (07:35)
[2019-09-06] MEDS: K and/or MAG REPLACEMENT MC SCH (08:00)
[2019-09-06] MEDS: nystatin/triamcinolone cream 15gm TP SCH (08:00)
[2019-09-06] MEDS: roflumilast 500mcg tablet PO SCH (08:59)
[2019-09-06] MEDS: losartan 50mg tablet PO SCH (09:00)
[2019-09-06] MEDS: docusate sod 100mg capsule PO SCH (09:00)
[2019-09-06] MEDS: potassium Cl 20 mEq SR tablet PO SCH (09:00)
[2019-09-06] MEDS: furosemide 40mg/4ml inj IV SCH (09:00)
[2019-09-06] MEDS: pantoprazole 40mg Tablet.DR PO SCH (09:00)
[2019-09-06] MEDS: aspirin 81mg tablet.DR PO SCH (09:00)
[2019-09-06] MEDS: carVEDilol 12.5mg tablet PO SCH (09:00)
[2019-09-06 11:00] VITALS: BP 118/45
[2019-09-06] MEDS ORDERED: FERR325T28 PO (11:52)
--- NOTE | 2019-09-06 15:06 | NUR ---
Pt discharged. IV d/c'd, tele removed, PNA vaccination given. Pt wheeled down by staff, accompanied by granddaughter. all belongings sent with pt. Addendum: 09/06/19 at 1507 by Rosie Florian RN discharged at 6089
== END 2019-09-06 13:38 | disposition home health service (06) | DRG 191 ==
LOC: ER 10:39 → ED HOLD 13:28 → PCU 3S 14:55
PROVIDERS: ADMIT Internal Medicine; ATTEND Internal Medicine
PROC: 30233N1 Transfusion of Nonautologous Red Blood Cells into Peripheral Vein, Percutaneous Approach (ICD-10-PCS; principal; 2019-09-04)
PROC: 30233N1 Transfusion of Nonautologous Red Blood Cells into Peripheral Vein, Percutaneous Approach (ICD-10-PCS; 2019-09-05)
PROC: 3E0234Z Introduction of Serum, Toxoid and Vaccine into Muscle, Percutaneous Approach (ICD-10-PCS; 2019-09-06)
DX: J44.1 Chronic obstructive pulmonary disease with (acute) exacerbation (principal); I24.9 Acute ischemic heart disease, unspecified; K44.9 Diaphragmatic hernia without obstruction or gangrene; D64.9 Anemia, unspecified; E78.5 Hyperlipidemia, unspecified; I11.0 Hypertensive heart disease with heart failure; I25.10 Atherosclerotic heart disease of native coronary artery without angina pectoris; I50.9 Heart failure, unspecified; K64.8 Other hemorrhoids; Z66 Do not resuscitate; E66.01 Morbid (severe) obesity due to excess calories; M19.90 Unspecified osteoarthritis, unspecified site; E78.00 Pure hypercholesterolemia, unspecified; Z88.6 Allergy status to analgesic agent; Z79.82 Long term (current) use of aspirin; Z23 Encounter for immunization; Z87.891 Personal history of nicotine dependence; Z90.710 Acquired absence of both cervix and uterus; Z99.81 Dependence on supplemental oxygen; Z68.39 Body mass index [BMI] 39.0-39.9, adult
CPT/HCPCS: 36415; 71045; 80053; 83605; 83735; 84484; 85025; 85027; 86885; 86900; 86901; 86920; 87040; 87081; 93005; 93308; 94640; 94760; 96374; 97116; 97161; 97530; 99285; G0378; J1940; J7626; J7999; P9016; Q2037

== ENCOUNTER 2020-08-14 13:37 | Inpatient (IN) | payer MEDICARE ==
[~2020-08-14] VITALS: Ht 154.9 cm; Wt 97.3 kg
[~2020-08-14 13:37] MED LIST changes: +ARFO15VI NEB; -ASPI81TA52 PO; -FERR325T28 PO; +GABA-530 PO; +LORA-269 PO; -PANT40TA4 PO; +PANT40TA54 PO; -SPIR25TA5 PO; -VALA500T37 PO
[2020-08-14] MEDS ORDERED: normal saline 1000ML IV soln IV ONE (14:10)
[2020-08-14] MEDS ORDERED: pantoprazole IV 80 MG in normal saline 100ml IV soln 100 ML IV ONE (14:10)
[2020-08-14] MEDS ORDERED: pantoprazole 40 MG vial IV ONE (14:14)
[2020-08-14 14:28] LABS: BASOPHILS % (AUTO) 0.3 % (0-1); EOSINOPHILS # (AUTO) 0.1 X10'3 (0-0.9); EOSINOPHILS % (AUTO) 1.5 % (0-6); LYMPHOCYTES # (AUTO) 1.1 X10'3 (1.1-4.8); LYMPHOCYTES % (AUTO) 16.6 % (21-51); MEAN CORPUSCULAR HEMOGLOBIN 31.4 PG (27.0-31.0); MEAN PLATELET VOLUME 7.9 FL (7.4-10.4); MONOCYTES # (AUTO) 0.4 X10'3 (0-0.9); MONOCYTES % (AUTO) 6.4 % (2-12); NEUTROPHILS % (AUTO) 75.2 % (42-75); PLATELET COUNT 190 X10'3 (140-440); RED BLOOD COUNT 2.24 X10'6 (4.20-5.60); WHITE BLOOD COUNT 6.7 X10'3 (4.5-11.0)
[2020-08-14 14:33] LABS: HEMATOCRIT 21.9 % (35.0-45.0)
[2020-08-14 14:34] LABS: PARTIAL THROMBOPLASTIN TIME 27 SECONDS (22-32)
[2020-08-14 14:35] LABS: ALANINE AMINOTRANSFERASE 50 U/L (12-78); ALBUMIN/GLOBULIN RATIO 0.7 (1.1-1.5); ALKALINE PHOSPHATASE 154 IU/L (46-116); ANION GAP 6 (8-16); ASPARTATE AMINO TRANSFERASE 56 U/L (10-37); BILIRUBIN,TOTAL 0.3 MG/DL (0.1-1.0); BLOOD UREA NITROGEN 34 MG/DL (7-18); BUN/CREATININE RATIO 23.9 (6.6-38.0); CALCIUM 8.9 MG/DL (8.5-10.1); CHLORIDE 105 MMOL/L (99-107); CREATININE 1.42 MG/DL (0.40-0.90); GLUCOSE 124 MG/DL (70-104); SODIUM 136 MMOL/L (135-145); TOTAL CARBON DIOXIDE 24.6 MMOL/L (24-32); TOTAL PROTEIN 7.2 G/DL (6.4-8.2); eGFR 36 ML/MIN
[2020-08-14 14:47] LABS: POTASSIUM 6.5 MMOL/L (3.5-5.1)
[2020-08-14] MEDS ORDERED: bisacodyl 10mg suppository rectal RC PRN (15:20)
[2020-08-14] MEDS ORDERED: magnesium 4gm in 100ml NS 100 ML IV PRN (15:20)
[2020-08-14] MEDS ORDERED: diphenhydrAMINE 25mg capsule PO PRN (15:20)
[2020-08-14] MEDS ORDERED: potassium CL 10mEq/100ml bag 100 ML IV PRN ×2 (15:20)
[2020-08-14] MEDS ORDERED: acetaminophen 650mg rectal suppository RC PRN (15:20)
[2020-08-14] MEDS ORDERED: magnesium 2GM in 50ml NS 50 ML IV PRN (15:20)
[2020-08-14] MEDS ORDERED: metoclopramide 5 mg/ml inj IV PRN (15:20)
[2020-08-14] MEDS ORDERED: acetaminophen 325mg tablet PO PRN ×2 (15:20)
[2020-08-14] MEDS ORDERED: ondansetron/PF 4mg/2ml inj IV PRN (15:20)
[2020-08-14] MEDS ORDERED: mag hydrox/Alum hydrox/simeth 30ml oral suspension PO PRN (15:20)
[2020-08-14] MEDS ORDERED: potassium Cl 20 mEq SR tablet PO PRN ×2 (15:20)
[2020-08-14] MEDS ORDERED: magnesium Cl slow-release 64mg tablet PO PRN (15:20)
[2020-08-14] MEDS ORDERED: magnesium hydroxide 30ml (MOM) UD suspension PO PRN (15:20)
[2020-08-14 15:29] VITALS: BP 114/53
[2020-08-14] MEDS: normal saline 1000ml 1,000 ML IV SCH (15:34)
[2020-08-14 15:36] LABS: CLARITY,URINE TURBID (Clear); COLOR,URINE YELLOW (Yellow); GLUCOSE, URINE NEGATIVE (Neg); KETONES,URINE TRACE mg/dl (Neg); LEUKOCYTE ESTERASE ,URINE NEGATIVE (Neg); NITRITES, URINE NEGATIVE (Neg); OCCULT BLOOD,URINE SMALL (Neg); PROTEIN,URINE 30 mg/dl (Neg)
[2020-08-14 15:38] LABS: UA COLLECTION TYPE CLN CATCH MIDSTREAM
[2020-08-14] MEDS ORDERED: FURO-150 PO (15:38)
[2020-08-14] MEDS ORDERED: PANT-47 PO (15:38)
[2020-08-14] MEDS ORDERED: SPIR25TA5 PO (15:38)
[2020-08-14] MEDS ORDERED: FERR325T28 PO (15:38)
[2020-08-14] MEDS ORDERED: LORA-269 PO (15:40)
[2020-08-14 15:41] LABS: SQUAMOUS EPITHELIAL CELL,UR MANY /LPF (FEW)
[2020-08-14 15:43] VITALS: BP 124/46
[2020-08-14] MEDS ORDERED: ISOS30TA9 PO (15:43)
[2020-08-14] MEDS ORDERED: CLIN150C2 PO (15:43)
[2020-08-14 15:44] LABS: COARSE GRANULAR CAST 0-3 /LPF (NEGATIVE); MUCUS STRANDS FEW /LPF (Neg)
[2020-08-14 15:45] LABS: TRANSITIONAL EPI CELLS,URINE MODERATE /HPF
[2020-08-14 15:46] LABS: RBC,URINE 0-2 /HPF (0-2); WBC,URINE 0-4 /HPF (0-4)
[2020-08-14 15:47] LABS: AMORPHOUS URATES 2+; BACTERIA,URINE 3+ /HPF (Neg); CAL OXALATE CRYSTALS FEW /HPF (NEGATIVE)
[2020-08-14 16:10] LABS: HEMOGLOBIN A1C 4.3 % (4.5-6.2)
[2020-08-14 16:39] VITALS: BP 130/52
[2020-08-14] MEDS: pantoprazole 40MG/NS 100ML BAG 100 ML IV SCH ×2 (16:56→21:16)
[2020-08-14] MEDS ORDERED: ISOS60TA4 PO (17:18)
[2020-08-14] MEDS ORDERED: BUDE0.256 NEB (17:18)
--- NOTE | 2020-08-14 17:30 | NUR ---
Called for report, was on hold for nurse for an amount of time, but need to administer medications for patient under my care already. Will attempt to call for report at a later time.
--- NOTE | 2020-08-14 17:41 | NUR ---
Patient in room ED 15. I have received report from Valarie GAMEZ and had the opportunity to ask questions and assume patient care.
[2020-08-14 18:00] VITALS: BP 139/43
--- NOTE | 2020-08-14 18:05 | NUR ---
Patient arrived to floor made familiar with room. Patient set up with O2, and call marx at shift change.
--- NOTE | 2020-08-14 18:05 | NUR ---
PAGER ID: [phone] MESSAGE: Varinder PCU 1427 Re: [id number] Lucy Brunner Patient requesting her home duo nebs to be reconciled from home meds and also her K is 6.5. thanks Varinder.
--- NOTE | 2020-08-14 18:21 | NUR ---
Problems reprioritized. Patient report given, questions answered & plan of care reviewed with Brianna GAMEZ.
--- NOTE | 2020-08-14 18:21 | NUR ---
RECEIVED REPORT FROM OMA GAMEZ AND ASSUMED PATIENT CARE
[2020-08-14] MEDS: K and/or MAG REPLACEMENT MC SCH (20:00)
[2020-08-14] MEDS: budesonide 0.5mg/2ml UD nebule IH SCH (21:47)
[2020-08-14] MEDS: ipratropium/albuterol 3ml nebule NEB SCH (21:47)
[2020-08-14 22:00] VITALS: BP 107/77
[2020-08-14] MEDS ORDERED: sodium polystyrene sulfonate 15gm/60ml oral suspension PO ONE (22:10)
[2020-08-15] VITALS (16 sets, daily range): BP systolic 113–186; BP diastolic 40–133
[2020-08-15] MEDS: pantoprazole 40MG/NS 100ML BAG 100 ML IV SCH ×4 (00:56→23:39)
[2020-08-15] MEDS: normal saline 1000ml 1,000 ML IV SCH ×2 (01:20→13:59)
[2020-08-15 05:21] LABS: BASOPHILS % (AUTO) 0.3 % (0-1); EOSINOPHILS # (AUTO) 0.1 X10'3 (0-0.9); EOSINOPHILS % (AUTO) 2.5 % (0-6); HEMATOCRIT 23.7 % (35.0-45.0); HEMOGLOBIN 7.9 g/dl (12.0-16.0); LYMPHOCYTES # (AUTO) 1.2 X10'3 (1.1-4.8); LYMPHOCYTES % (AUTO) 20.7 % (21-51); MEAN CORPUSCULAR HEMOGLOBIN 32.5 PG (27.0-31.0); MEAN CORPUSCULAR HGB CONC 33.1 g/dL (33.0-36.5); MEAN CORPUSCULAR VOLUME 98.1 FL (78-98); MEAN PLATELET VOLUME 7.6 FL (7.4-10.4); MONOCYTES # (AUTO) 0.6 X10'3 (0-0.9); MONOCYTES % (AUTO) 9.6 % (2-12); NEUTROPHILS # (AUTO) 3.9 X10'3 (1.8-7.7); NEUTROPHILS % (AUTO) 66.9 % (42-75); PLATELET COUNT 177 X10'3 (140-440); RED BLOOD COUNT 2.42 X10'6 (4.20-5.60); RED CELL DISTRIBUTION WIDTH 15.9 % (11.5-14.5); WHITE BLOOD COUNT 5.8 X10'3 (4.5-11.0)
[2020-08-15 05:52] LABS: ALANINE AMINOTRANSFERASE 42 U/L (12-78); ALBUMIN 2.8 G/DL (3.4-5.0); ALBUMIN/GLOBULIN RATIO 0.7 (1.1-1.5); ALKALINE PHOSPHATASE 148 IU/L (46-116); ANION GAP 10 (8-16); ASPARTATE AMINO TRANSFERASE 48 U/L (10-37); BILIRUBIN,TOTAL 0.3 MG/DL (0.1-1.0); BLOOD UREA NITROGEN 29 MG/DL (7-18); BUN/CREATININE RATIO 23.6 (6.6-38.0); CALCIUM 8.3 MG/DL (8.5-10.1); CHLORIDE 114 MMOL/L (99-107); CHOL/HDL RATIO 4.1 (0.00-4.99); CHOLESTEROL 153 MG/DL (0-200); CREATININE 1.23 MG/DL (0.40-0.90); GLUCOSE 81 MG/DL (70-104); HDL CHOLESTEROL 37 MG/DL (35-60); LDL CHOLESTEROL 101 MG/DL (50-100); MAGNESIUM 1.9 MG/DL (1.5-2.4); PHOSPHORUS 4.4 MG/DL (2.3-4.5); POTASSIUM 5.8 MMOL/L (3.5-5.1); SODIUM 145 MMOL/L (135-145); TOTAL PROTEIN 6.7 G/DL (6.4-8.2); TRIGLYCERIDES 115 MG/DL (20-135); eGFR 43 ML/MIN
--- NOTE | 2020-08-15 06:23 | NUR ---
REPORT GIVEN TO BERE GAMEZ
--- NOTE | 2020-08-15 06:34 | NUR ---
Patient in room PCU 3027. I have received report from Brianna SAENZ RN and had the opportunity to ask questions and assume patient care.
--- NOTE | 2020-08-15 07:01 | NUR ---
Patient in room PCU 3027. I have received report from Brianna GAMEZ and had the opportunity to ask questions and assume patient care.
[2020-08-15] MEDS: ipratropium/albuterol 3ml nebule NEB SCH ×3 (07:46→19:37)
[2020-08-15] MEDS: budesonide 0.5mg/2ml UD nebule IH SCH ×2 (07:46→19:37)
[2020-08-15] MEDS ORDERED: non-formulary drug (Arformoterol Tartrate (Brovana) 1 VIAL) NEB SCH (08:00)
[2020-08-15] MEDS: K and/or MAG REPLACEMENT MC SCH ×2 (08:00→19:43)
[2020-08-15] MEDS: carVEDilol 12.5mg tablet PO SCH ×2 (08:24→19:40)
[2020-08-15] MEDS: gabapentin 100mg capsule PO SCH ×2 (08:25)
[2020-08-15] MEDS ORDERED: sodium polystyrene sulfonate 15gm/60ml oral suspension PO ONE (08:50)
--- NOTE | 2020-08-15 10:48 | NUR ---
Student documentation: I have reviewed and agree with all interventions, assessments performed and documented by Ashok, associate of science in nursing.
--- NOTE | 2020-08-15 10:49 | NUR ---
Student Medication Administration: For this medication-pass time frame, all medication were reviewed, dispensed, administered and documented per hospital policy by tejas Pulido.
--- NOTE | 2020-08-15 12:09 | NUR ---
Problems reprioritized. Patient report given, questions answered & plan of care reviewed with Radha Fish
[2020-08-15] MEDS: ferrous sulfate 325mg tablet PO SCH ×2 (14:00→20:36)
[2020-08-15] MEDS ORDERED: MIDAZolam 5mg/5ml vial ONE (16:28)
[2020-08-15] MEDS ORDERED: fentaNYL/PF 50MCG/1 ML 2ML syringe ONE (16:28)
[2020-08-15] MEDS ORDERED: LIDOcaine Viscous 15ml cup ONE (16:28)
--- NOTE | 2020-08-15 18:50 | NUR ---
Patient in room PCU 3027. I have received report from Rdaha GAMEZ and had the opportunity to ask questions and assume patient care.
--- NOTE | 2020-08-15 18:54 | NUR ---
Problems reprioritized. Patient report given, questions answered & plan of care reviewed with Linda GAMEZ.
--- NOTE | 2020-08-15 19:00 | NUR ---
2 x chicken broth and 2 apple juice Addendum: 08/16/20 at 0546 by Linda Castillo RN Amended: Links added.
--- NOTE | 2020-08-15 19:33 | NUR ---
As patient was down in the GI lab - no 1800 vs.
[2020-08-15] MEDS: gabapentin 300mg capsule PO SCH (19:41)
[2020-08-15] MEDS ORDERED: LORazepam 1 MG tablet PO SCH (21:00)
--- NOTE | 2020-08-15 21:00 | NUR ---
MD called as patients BP very elevated 183 systolic. Order for 1 time 40mg lasix po and change rate of NS from 100 to 75ml.
[2020-08-15] MEDS ORDERED: furosemide 40mg tablet PO ONE (21:05)
[2020-08-16] MEDS: pantoprazole 40MG/NS 100ML BAG 100 ML IV SCH ×4 (01:00→11:00)
[2020-08-16 05:23] LABS: BASOPHILS % (AUTO) 0.3 % (0-1); EOSINOPHILS # (AUTO) 0.2 X10'3 (0-0.9); EOSINOPHILS % (AUTO) 3.3 % (0-6); HEMATOCRIT 24.7 % (35.0-45.0); HEMOGLOBIN 7.8 g/dl (12.0-16.0); MEAN CORPUSCULAR HEMOGLOBIN 31.2 PG (27.0-31.0); MEAN CORPUSCULAR HGB CONC 31.8 g/dL (33.0-36.5); MEAN CORPUSCULAR VOLUME 98.1 FL (78-98); MEAN PLATELET VOLUME 7.5 FL (7.4-10.4); MONOCYTES # (AUTO) 0.5 X10'3 (0-0.9); MONOCYTES % (AUTO) 10.6 % (2-12); NEUTROPHILS # (AUTO) 2.9 X10'3 (1.8-7.7); NEUTROPHILS % (AUTO) 64.8 % (42-75); PLATELET COUNT 172 X10'3 (140-440); RED BLOOD COUNT 2.52 X10'6 (4.20-5.60); RED CELL DISTRIBUTION WIDTH 15.9 % (11.5-14.5); WHITE BLOOD COUNT 4.5 X10'3 (4.5-11.0)
[2020-08-16 05:31] LABS: ALANINE AMINOTRANSFERASE 47 U/L (12-78); ALBUMIN 2.8 G/DL (3.4-5.0); ALBUMIN/GLOBULIN RATIO 0.7 (1.1-1.5); ALKALINE PHOSPHATASE 152 IU/L (46-116); ANION GAP 9 (8-16); ASPARTATE AMINO TRANSFERASE 52 U/L (10-37); BILIRUBIN,TOTAL 0.3 MG/DL (0.1-1.0); BLOOD UREA NITROGEN 22 MG/DL (7-18); BUN/CREATININE RATIO 23.2 (6.6-38.0); CALCIUM 8.4 MG/DL (8.5-10.1); CHLORIDE 112 MMOL/L (99-107); CREATININE 0.95 MG/DL (0.40-0.90); GLUCOSE 102 MG/DL (70-104); MAGNESIUM 1.4 MG/DL (1.5-2.4); PHOSPHORUS 4.6 MG/DL (2.3-4.5); SODIUM 143 MMOL/L (135-145); TOTAL CARBON DIOXIDE 21.9 MMOL/L (24-32); TOTAL PROTEIN 6.6 G/DL (6.4-8.2); eGFR 58 ML/MIN
[2020-08-16] MEDS: normal saline 1000ml 1,000 ML IV SCH ×2 (05:38→10:30)
--- NOTE | 2020-08-16 06:45 | NUR ---
Problems reprioritized. Patient report given, questions answered & plan of care reviewed with Merry GAMEZ.
[2020-08-16] MEDS: budesonide 0.5mg/2ml UD nebule IH SCH (07:40)
[2020-08-16] MEDS: ipratropium/albuterol 3ml nebule NEB SCH ×2 (07:40→12:07)
[2020-08-16 07:45] VITALS: BP 140/42
[2020-08-16] MEDS ORDERED: isosorbide mononitrate 30mg tab.SR.24H PO SCH (08:00)
[2020-08-16] MEDS ORDERED: roflumilast 500mcg tablet PO SCH (08:00)
[2020-08-16] MEDS ORDERED: losartan 50mg tablet PO SCH (08:00)
[2020-08-16] MEDS ORDERED: furosemide 20MG tablet PO SCH (08:00)
[2020-08-16] MEDS: K and/or MAG REPLACEMENT MC SCH (08:00)
[2020-08-16] MEDS ORDERED: spironolactone 25 MG tablet PO SCH (08:00)
[2020-08-16] MEDS: gabapentin 300mg capsule PO SCH (08:32)
[2020-08-16] MEDS: ferrous sulfate 325mg tablet PO SCH (08:33)
[2020-08-16] MEDS: carVEDilol 12.5mg tablet PO SCH (08:34)
[2020-08-16] MEDS ORDERED: PANT-47 PO (10:07)
[2020-08-16 11:00] VITALS: BP 131/55
--- NOTE | 2020-08-16 12:13 | NUR ---
Patient stable and appropriate for discharge home with son. IV removed, all belongings taken from room. New prescription transmitted to preferred pharmacy. All discharge instructions and education given and reviewed with patient, all questions answered. Patient is aware of next due doses on all medications and understands that she needs to call to schedule her follow up appointments.
== END 2020-08-16 12:20 | disposition home health service (06) | DRG 377 ==
LOC: ER 13:38 → ED HOLD 15:16 → PCU 3S 17:48
PROVIDERS: ADMIT Family Medicine; ATTEND Family Medicine
PROC: 30233N1 Transfusion of Nonautologous Red Blood Cells into Peripheral Vein, Percutaneous Approach (ICD-10-PCS; 2020-08-14)
PROC: 0DB68ZX Excision of Stomach, Via Natural or Artificial Opening Endoscopic, Diagnostic (ICD-10-PCS; principal; 2020-08-15)
DX: K29.01 Acute gastritis with bleeding (principal); N17.0 Acute kidney failure with tubular necrosis; Z68.41 Body mass index [BMI] 40.0-44.9, adult; D50.0 Iron deficiency anemia secondary to blood loss (chronic); E87.5 Hyperkalemia; E66.9 Obesity, unspecified; E78.00 Pure hypercholesterolemia, unspecified; I11.0 Hypertensive heart disease with heart failure; I50.9 Heart failure, unspecified; J44.9 Chronic obstructive pulmonary disease, unspecified; K21.9 Gastro-esophageal reflux disease without esophagitis; K27.9 Peptic ulcer, site unspecified, unspecified as acute or chronic, without hemorrhage or perforation; Z66 Do not resuscitate; M19.90 Unspecified osteoarthritis, unspecified site; Z80.49 Family history of malignant neoplasm of other genital organs; Z80.8 Family history of malignant neoplasm of other organs or systems; Z87.11 Personal history of peptic ulcer disease; Z87.891 Personal history of nicotine dependence; Z90.710 Acquired absence of both cervix and uterus; Z88.5 Allergy status to narcotic agent; Z99.81 Dependence on supplemental oxygen
CPT/HCPCS: 36415; 36430; 43239; 71045; 80053; 80061; 81001; 83036; 83735; 84100; 85025; 85610; 85730; 86885; 86900; 86901; 86920; 87081; 93005; 94640; 94760; 96374; 97110; 97116; 97161; 97530; 99152; 99291; A4620; C9113; G0378; J2250; J3010; J7030; J7040; J7626; P9016

== ENCOUNTER 2020-10-04 00:01 | Emergency (ER) | payer MEDICARE ==
[~2020-10-04] VITALS: Ht 154.9 cm; Wt 100.0 kg
[~2020-10-04 00:01] MED LIST changes: +BUDE0.256 NEB; -BUDE0.5A11 NEB; +FERR325T28 PO; +FURO-150 PO; -FURO40TA4 PO; -IPRA3AMP31 IH; +ISOS60TA4 PO; +PANT-47 PO; -PANT40TA54 PO; +SPIR25TA5 PO
[2020-10-04] MEDS ORDERED: normal saline 1000ML IV soln IVB ONE (00:15)
[2020-10-04] MEDS ORDERED: ondansetron/PF 4mg/2ml inj IV ONE (00:15)
[2020-10-04] MEDS ORDERED: pantoprazole 40 MG vial IV ONE (00:15)
[2020-10-04 00:42] LABS: RED CELL DISTRIBUTION WIDTH 14.3 % (11.5-14.5)
[2020-10-04 00:43] LABS: BASOPHILS % (AUTO) 0.3 % (0-1); EOSINOPHILS # (AUTO) 0.2 X10'3 (0-0.9); EOSINOPHILS % (AUTO) 3.4 % (0-6); HEMATOCRIT 26.7 % (35.0-45.0); LYMPHOCYTES # (AUTO) 1.3 X10'3 (1.1-4.8); LYMPHOCYTES % (AUTO) 24.6 % (21-51); MEAN CORPUSCULAR HGB CONC 33.8 g/dL (33.0-36.5); MEAN CORPUSCULAR VOLUME 97.6 FL (78-98); MEAN PLATELET VOLUME 7.8 FL (7.4-10.4); MONOCYTES # (AUTO) 0.5 X10'3 (0-0.9); MONOCYTES % (AUTO) 10.3 % (2-12); NEUTROPHILS # (AUTO) 3.2 X10'3 (1.8-7.7); NEUTROPHILS % (AUTO) 61.4 % (42-75); PLATELET COUNT 183 X10'3 (140-440); RED BLOOD COUNT 2.73 X10'6 (4.20-5.60); WHITE BLOOD COUNT 5.2 X10'3 (4.5-11.0)
[2020-10-04 00:54] LABS: PARTIAL THROMBOPLASTIN TIME 26 SECONDS (22-32)
[2020-10-04 00:56] LABS: ALANINE AMINOTRANSFERASE 44 U/L (12-78); ALBUMIN 2.9 G/DL (3.4-5.0); ALBUMIN/GLOBULIN RATIO 0.7 (1.1-1.5); ALKALINE PHOSPHATASE 181 IU/L (46-116); ANION GAP 6 (8-16); ASPARTATE AMINO TRANSFERASE 45 U/L (10-37); BILIRUBIN,TOTAL 0.3 MG/DL (0.1-1.0); BLOOD UREA NITROGEN 24 MG/DL (7-18); BUN/CREATININE RATIO 21.8 (6.6-38.0); CALCIUM 8.7 MG/DL (8.5-10.1); CHLORIDE 111 MMOL/L (99-107); GLUCOSE 111 MG/DL (70-104); SODIUM 144 MMOL/L (135-145); TOTAL CARBON DIOXIDE 26.7 MMOL/L (24-32); TOTAL PROTEIN 7.3 G/DL (6.4-8.2); eGFR 49 ML/MIN
[2020-10-04 01:19] LABS: CLARITY,URINE CLEAR (Clear); COLOR,URINE YELLOW (Yellow); GLUCOSE, URINE NEGATIVE (Neg); KETONES,URINE NEGATIVE (Neg); LEUKOCYTE ESTERASE ,URINE NEGATIVE (Neg); NITRITES, URINE NEGATIVE (Neg); OCCULT BLOOD,URINE LARGE (Neg); PH,URINE 5.5 (4.8-8.0); PROTEIN,URINE 100 mg/dl (Neg); UROBILINOGEN,URINE 0.2 E.U/dL (0.2-1.0)
[2020-10-04 01:27] LABS: UA COLLECTION TYPE CLN CATCH MIDSTREAM
[2020-10-04 01:28] LABS: AMORPHOUS URATES 3+; BACTERIA,URINE FEW /HPF (Neg); COARSE GRANULAR CAST 0-3 /LPF (NEGATIVE); RBC,URINE 0-2 /HPF (0-2); SQUAMOUS EPITHELIAL CELL,UR MODERATE /LPF (FEW); WBC,URINE 0-4 /HPF (0-4)
[2020-10-04] MEDS ORDERED: HYDR25SU32 RC (01:46)
[2020-10-04] MEDS ORDERED: hydrocortisone acetate 25mg rectal suppository RC PRN (01:50)
[2020-10-04 02:04] VITALS: BP 152/67
== END 2020-10-04 02:46 | disposition home or self-care (01) ==
LOC: ER 00:02
DX: K62.5 Hemorrhage of anus and rectum (principal); K64.4 Residual hemorrhoidal skin tags; I11.0 Hypertensive heart disease with heart failure; I50.9 Heart failure, unspecified; E78.00 Pure hypercholesterolemia, unspecified; J44.9 Chronic obstructive pulmonary disease, unspecified; K21.9 Gastro-esophageal reflux disease without esophagitis; M19.90 Unspecified osteoarthritis, unspecified site; Z86.2 Personal history of diseases of the blood and blood-forming organs and certain disorders involving the immune mechanism; Z90.710 Acquired absence of both cervix and uterus; Z90.49 Acquired absence of other specified parts of digestive tract; Z98.890 Other specified postprocedural states; Z88.6 Allergy status to analgesic agent; Z79.899 Other long term (current) drug therapy
CPT/HCPCS: 36415; 71045; 80053; 81001; 85025; 85610; 85730; 86885; 86900; 86901; 93005; 96374; 99285; C9113; J7030; J7999

== ENCOUNTER 2021-02-13 18:39 | Emergency (ER) | payer MEDICARE ==
[~2021-02-13] VITALS: Ht 154.9 cm; Wt 95.4 kg
[~2021-02-13 18:39] MED LIST changes: -ARFO15VI NEB; -BUDE0.256 NEB; +CALC60CR5 TOP; -ISOS60TA4 PO; +ISOS60TA71 PO; +LORA-268 PO; -LORA-269 PO; +MYC15CR TOP; -PANT-47 PO; +PANT40TA54 PO
[2021-02-13 19:51] LABS: BASOPHILS % (AUTO) 0.3 % (0-1); EOSINOPHILS # (AUTO) 0.1 X10'3 (0-0.9); EOSINOPHILS % (AUTO) 2.4 % (0-6); HEMATOCRIT 23.5 % (35.0-45.0); HEMOGLOBIN 7.6 g/dl (12.0-16.0); LYMPHOCYTES # (AUTO) 0.9 X10'3 (1.1-4.8); LYMPHOCYTES % (AUTO) 17.6 % (21-51); MEAN CORPUSCULAR HEMOGLOBIN 31.8 PG (27.0-31.0); MEAN CORPUSCULAR HGB CONC 32.1 g/dL (33.0-36.5); MEAN CORPUSCULAR VOLUME 98.9 FL (78-98); MEAN PLATELET VOLUME 7.3 FL (7.4-10.4); MONOCYTES # (AUTO) 0.6 X10'3 (0-0.9); MONOCYTES % (AUTO) 10.9 % (2-12); NEUTROPHILS # (AUTO) 3.5 X10'3 (1.8-7.7); NEUTROPHILS % (AUTO) 68.8 % (42-75); PLATELET COUNT 181 X10'3 (140-440); RED BLOOD COUNT 2.38 X10'6 (4.20-5.60); RED CELL DISTRIBUTION WIDTH 18.6 % (11.5-14.5)
[2021-02-13 19:53] LABS: ALANINE AMINOTRANSFERASE 31 U/L (12-78); ALBUMIN 3.1 G/DL (3.4-5.0); ALBUMIN/GLOBULIN RATIO 0.8 (1.1-1.5); ALKALINE PHOSPHATASE 164 IU/L (46-116); ANION GAP 9 (8-16); ASPARTATE AMINO TRANSFERASE 30 U/L (10-37); BILIRUBIN,TOTAL 0.4 MG/DL (0.1-1.0); BLOOD UREA NITROGEN 33 MG/DL (7-18); BUN/CREATININE RATIO 30.3 (6.6-38.0); CHLORIDE 106 MMOL/L (99-107); CREATININE 1.09 MG/DL (0.40-0.90); GLUCOSE 101 MG/DL (70-104); LIPASE 175 U/L (73-393); POTASSIUM 4.4 MMOL/L (3.5-5.1); SODIUM 144 MMOL/L (135-145); TOTAL PROTEIN 7.1 G/DL (6.4-8.2); eGFR 49 ML/MIN
[2021-02-13 20:48] LABS: CLARITY,URINE CLEAR (Clear); COLOR,URINE YELLOW (Yellow); GLUCOSE, URINE NEGATIVE (Neg); KETONES,URINE NEGATIVE (Neg); LEUKOCYTE ESTERASE ,URINE NEGATIVE (Neg); NITRITES, URINE NEGATIVE (Neg); OCCULT BLOOD,URINE SMALL (Neg); PROTEIN,URINE NEGATIVE (Neg); UROBILINOGEN,URINE 0.2 E.U/dL (0.2-1.0)
[2021-02-13 21:00] LABS: UA COLLECTION TYPE CLN CATCH MIDSTREAM
[2021-02-13 21:01] LABS: BACTERIA,URINE FEW /HPF (Neg); RBC,URINE 0-2 /HPF (0-2); WBC,URINE 0-4 /HPF (0-4)
[2021-02-13 21:02] LABS: SQUAMOUS EPITHELIAL CELL,UR FEW /LPF (FEW)
[2021-02-13 21:50] VITALS: BP 156/55
== END 2021-02-13 21:54 | disposition home or self-care (01) ==
LOC: ER 18:40
DX: K62.5 Hemorrhage of anus and rectum (principal); R53.1 Weakness; R55 Syncope and collapse; R11.0 Nausea; I11.0 Hypertensive heart disease with heart failure; I50.9 Heart failure, unspecified; E78.00 Pure hypercholesterolemia, unspecified; J44.9 Chronic obstructive pulmonary disease, unspecified; K21.9 Gastro-esophageal reflux disease without esophagitis; M19.90 Unspecified osteoarthritis, unspecified site; Z87.11 Personal history of peptic ulcer disease; Z86.2 Personal history of diseases of the blood and blood-forming organs and certain disorders involving the immune mechanism; Z90.710 Acquired absence of both cervix and uterus; Z87.01 Personal history of pneumonia (recurrent); Z90.89 Acquired absence of other organs; Z98.890 Other specified postprocedural states; Z88.5 Allergy status to narcotic agent; Z79.899 Other long term (current) drug therapy
CPT/HCPCS: 80053; 81001; 83690; 85025; 86885; 86900; 86901; 99284

== ENCOUNTER 2021-02-15 12:03 | Inpatient (IN) | payer MEDICARE ==
[~2021-02-15] VITALS: Ht 154.9 cm; Wt 90.0 kg
[2021-02-15 12:49] LABS: BASOPHILS % (AUTO) 0.4 % (0-1); EOSINOPHILS # (AUTO) 0.1 X10'3 (0-0.9); EOSINOPHILS % (AUTO) 1.7 % (0-6); HEMOGLOBIN 7.5 g/dl (12.0-16.0); LYMPHOCYTES # (AUTO) 0.9 X10'3 (1.1-4.8); LYMPHOCYTES % (AUTO) 18.7 % (21-51); MEAN CORPUSCULAR HEMOGLOBIN 31.4 PG (27.0-31.0); MEAN CORPUSCULAR HGB CONC 31.4 g/dL (33.0-36.5); MEAN PLATELET VOLUME 7.5 FL (7.4-10.4); MONOCYTES # (AUTO) 0.4 X10'3 (0-0.9); MONOCYTES % (AUTO) 8.5 % (2-12); NEUTROPHILS # (AUTO) 3.5 X10'3 (1.8-7.7); NEUTROPHILS % (AUTO) 70.7 % (42-75); PLATELET COUNT 178 X10'3 (140-440); RED CELL DISTRIBUTION WIDTH 19.4 % (11.5-14.5); WHITE BLOOD COUNT 4.9 X10'3 (4.5-11.0)
[2021-02-15 13:06] LABS: ALANINE AMINOTRANSFERASE 35 U/L (12-78); ALBUMIN 2.9 G/DL (3.4-5.0); ALBUMIN/GLOBULIN RATIO 0.7 (1.1-1.5); ALKALINE PHOSPHATASE 157 IU/L (46-116); ANION GAP 4 (8-16); ASPARTATE AMINO TRANSFERASE 38 U/L (10-37); BILIRUBIN,TOTAL 0.5 MG/DL (0.1-1.0); BLOOD UREA NITROGEN 26 MG/DL (7-18); CALCIUM 8.8 MG/DL (8.5-10.1); CHLORIDE 105 MMOL/L (99-107); CREATININE 1.13 MG/DL (0.40-0.90); GLUCOSE 121 MG/DL (70-104); POTASSIUM 4.5 MMOL/L (3.5-5.1); SODIUM 141 MMOL/L (135-145); TOTAL CARBON DIOXIDE 32.1 MMOL/L (24-32); TOTAL PROTEIN 6.9 G/DL (6.4-8.2); eGFR 47 ML/MIN
[2021-02-15 13:15] LABS: PARTIAL THROMBOPLASTIN TIME 26 SECONDS (22-32)
[2021-02-15] MEDS ORDERED: PANT-47 PO (14:06)
[2021-02-15] MEDS ORDERED: CHOL10006 PO (14:06)
[2021-02-15] MEDS ORDERED: MOME17SP BOTHNARES (14:06)
[2021-02-15] MEDS ORDERED: LOSA100T57 PO (14:06)
[2021-02-15] MEDS ORDERED: LORA-269 PO (14:06)
[2021-02-15] MEDS ORDERED: ASPI-500 PO (14:06)
[2021-02-15] MEDS ORDERED: BUDE10.22 IH (14:06)
[2021-02-15] MEDS ORDERED: LACT1TAB15 PO (14:06)
[2021-02-15] MEDS ORDERED: METO50TA16 PO (14:06)
[2021-02-15] MEDS ORDERED: OMEG-166 PO (14:06)
[2021-02-15] MEDS ORDERED: LISI1TAB51 PO (14:06)
[2021-02-15] MEDS ORDERED: GEMF600T90 PO (14:06)
[2021-02-15] MEDS ORDERED: FURO-149 PO (14:06)
[2021-02-15] MEDS ORDERED: ALBU6.7H9 IH (14:06)
[2021-02-15] MEDS ORDERED: ARFO15VI NEB (14:06)
[2021-02-15] MEDS ORDERED: FLUT100D IH (14:06)
[2021-02-15] MEDS ORDERED: OMEP-50 PO (14:06)
[2021-02-15] MEDS ORDERED: SIMV-45 PO (14:06)
[2021-02-15] MEDS ORDERED: REVE175V NEB (14:06)
[2021-02-15] MEDS ORDERED: ondansetron/PF 4mg/2ml inj IV PRN (14:10)
[2021-02-15] MEDS ORDERED: magnesium 2GM in 50ml NS 50 ML IV PRN (14:10)
[2021-02-15] MEDS ORDERED: potassium Cl 40MEQ/1/2NS 520ml 520 ML IV PRN ×2 (14:10)
[2021-02-15] MEDS ORDERED: magnesium 4gm in 100ml NS 100 ML IV PRN (14:10)
[2021-02-15] MEDS ORDERED: potassium Cl 20 mEq SR tablet PO PRN ×2 (14:10)
[2021-02-15] MEDS ORDERED: magnesium Cl slow-release 64mg tablet PO PRN (14:10)
[2021-02-15 14:18] LABS: PLATELET ESTIMATE NORMAL
[2021-02-15 14:19] LABS: ANISOCYTOSIS 2+
[2021-02-15 14:20] LABS: SCHISTOCYTES FEW
[2021-02-15] MEDS ORDERED: albuterol 2.5 MG/3 ML nebule NEB ONE (16:15)
--- NOTE | 2021-02-15 16:18 | NUR ---
Call to Dr. Rascon to inform that Pt. normally takes DuoNeb. VO Albuterol Atrovent 2.5/3 q6hrs PRN for wheezing and tylenol q 6 hours PNR pain.
[2021-02-15] MEDS ORDERED: acetaminophen 325mg tablet PO ONE (16:20)
[2021-02-15] MEDS: ipratropium/albuterol 3ml nebule NEB PRN ×2 (16:33→20:01)
[2021-02-15 16:40] LABS: CLARITY,URINE SLIGHTLY CLOUDY (Clear); COLOR,URINE YELLOW (Yellow); GLUCOSE, URINE NEGATIVE (Neg); KETONES,URINE NEGATIVE (Neg); LEUKOCYTE ESTERASE ,URINE NEGATIVE (Neg); NITRITES, URINE NEGATIVE (Neg); OCCULT BLOOD,URINE NEGATIVE (Neg); PROTEIN,URINE NEGATIVE (Neg); UROBILINOGEN,URINE 0.2 E.U/dL (0.2-1.0)
[2021-02-15 16:41] LABS: UA COLLECTION TYPE CLN CATCH MIDSTREAM
[2021-02-15 16:49] LABS: BACTERIA,URINE FEW /HPF (Neg); RBC,URINE 0-2 /HPF (0-2); SQUAMOUS EPITHELIAL CELL,UR FEW /LPF (FEW); WBC,URINE 0-4 /HPF (0-4)
--- NOTE | 2021-02-15 18:41 | NUR ---
pt awaitinig room assignment. new piv placed to l fa. pt is a&ox4. stable vs.
[2021-02-15] MEDS: K and/or MAG REPLACEMENT MC SCH (20:00)
--- NOTE | 2021-02-15 20:05 | NUR ---
pt getting neb treatment now. she does neb treatments at home every 4 hrs while awake. lungs sound clear
[2021-02-15] MEDS: pantoprazole 40 MG vial IV SCH (20:10)
[2021-02-15] MEDS ORDERED: ALBUTEROL INHALER 1 PUFF/90 MCG INHALER IH PRN (22:00)
[2021-02-15] MEDS ORDERED: albuterol 2.5 MG/3 ML nebule NEB PRN (22:10)
--- NOTE | 2021-02-15 22:29 | NUR ---
PATIENT MOVED FROM ER [facility] TO HOSPITAL BED FOR COMFORT
[2021-02-15] MEDS: LORazepam 0.5 MG tablet PO PRN (23:23)
--- NOTE | 2021-02-15 23:25 | NUR ---
assisting RN with pt care, medicated per provider order, gave pt ice water, paged RT for routine tx
[2021-02-15] MEDS: ipratropium/albuterol 3ml nebule NEB SCH (23:27)
--- NOTE | 2021-02-15 23:27 | NUR ---
RT at bedside
[2021-02-16] MEDS ORDERED: albuterol 2.5 MG/3 ML nebule NEB SCH (02:00)
[2021-02-16] MEDS: ipratropium/albuterol 3ml nebule NEB SCH ×7 (03:03→23:07)
--- NOTE | 2021-02-16 03:05 | NUR ---
pt sleeping, lying on her back with blankets covering to her chest. pt was placed on a hospital bed earlier. reji marsh
--- NOTE | 2021-02-16 03:15 | NUR ---
pt getting svn by rt at this time.
[2021-02-16] MEDS ORDERED: IOHEXOL 12MG/ML oral solution 500 ML BOTTLE PO ONE (07:00)
[2021-02-16] MEDS: budesonide 0.5mg/2ml UD nebule IH SCH ×2 (07:22→19:27)
[2021-02-16] MEDS: lactobacillus rhamnosus 10,000 MMU CELLS/CAPSULE PO SCH ×2 (07:44→20:39)
[2021-02-16] MEDS: metoprolol tartrate 50mg tablet PO SCH (07:44)
[2021-02-16] MEDS: HYDROchlorothiazide 12.5mg capsule PO SCH (07:44)
[2021-02-16] MEDS: furosemide 40mg tablet PO SCH (07:45)
[2021-02-16] MEDS: OMEGA-3/DHA/EPA/FISH OIL 1 EACH CAPSULE.DR PO SCH ×2 (07:45→20:41)
[2021-02-16] MEDS: lisinopril 20mg tablet PO SCH (07:45)
[2021-02-16] MEDS: losartan 50mg tablet PO SCH (07:45)
[2021-02-16] MEDS: pantoprazole 40 MG vial IV SCH ×2 (07:46→20:39)
[2021-02-16] MEDS ORDERED: ipratropium/albuterol 3ml nebule NEB SCH (08:00)
[2021-02-16] MEDS: REVEFENACIN 175 MCG/3 ML IH SCH (08:00)
[2021-02-16] MEDS ORDERED: FLUTICASONE PROPIONATE IH SCH (08:00)
[2021-02-16] MEDS ORDERED: non-formulary drug (Omeprazole 2 TAB) PO SCH (08:00)
[2021-02-16] MEDS: ARFORMOTEROL TARTRATE 15 MCG/2 ML IH SCH ×2 (08:00→19:27)
[2021-02-16] MEDS: gemfibrozil 600mg tablet PO SCH ×2 (08:00→20:00)
[2021-02-16 08:02] LABS: BASOPHILS % (AUTO) 0.7 % (0-1); EOSINOPHILS # (AUTO) 0.1 X10'3 (0-0.9); EOSINOPHILS % (AUTO) 2.8 % (0-6); HEMOGLOBIN 7.6 g/dl (12.0-16.0); LYMPHOCYTES # (AUTO) 0.8 X10'3 (1.1-4.8); LYMPHOCYTES % (AUTO) 22.8 % (21-51); MEAN CORPUSCULAR HEMOGLOBIN 31.3 PG (27.0-31.0); MEAN CORPUSCULAR HGB CONC 31.5 g/dL (33.0-36.5); MEAN CORPUSCULAR VOLUME 99.4 FL (78-98); MEAN PLATELET VOLUME 7.2 FL (7.4-10.4); MONOCYTES # (AUTO) 0.3 X10'3 (0-0.9); NEUTROPHILS # (AUTO) 2.2 X10'3 (1.8-7.7); NEUTROPHILS % (AUTO) 63.7 % (42-75); PLATELET COUNT 187 X10'3 (140-440); RED BLOOD COUNT 2.42 X10'6 (4.20-5.60); RED CELL DISTRIBUTION WIDTH 18.7 % (11.5-14.5); WHITE BLOOD COUNT 3.4 X10'3 (4.5-11.0)
[2021-02-16 08:22] LABS: ALBUMIN 2.7 G/DL (3.4-5.0); ANION GAP 5 (8-16); BLOOD UREA NITROGEN 24 MG/DL (7-18); BUN/CREATININE RATIO 23.3 (6.6-38.0); CHLORIDE 109 MMOL/L (99-107); CREATININE 1.03 MG/DL (0.40-0.90); GLUCOSE 99 MG/DL (70-104); MAGNESIUM 2.3 MG/DL (1.5-2.4); POTASSIUM 4.7 MMOL/L (3.5-5.1); SODIUM 145 MMOL/L (135-145); TOTAL CARBON DIOXIDE 30.8 MMOL/L (24-32); eGFR 53 ML/MIN
[2021-02-16] MEDS: K and/or MAG REPLACEMENT MC SCH ×2 (08:25→20:00)
[2021-02-16 08:34] LABS: ANISOCYTOSIS 2+; PLATELET ESTIMATE NORMAL; POIKILOCYTOSIS FEW; POLYCHROMASIA FEW; STOMATOCYTES 1+
[2021-02-16] MEDS: fluticasone nasal spray 16GM bottle NS SCH (09:10)
[2021-02-16] MEDS ORDERED: ROFL500T7 PO (09:27)
[2021-02-16] MEDS ORDERED: SPIR25TA5 PO (09:31)
[2021-02-16] MEDS ORDERED: FERR-39 PO (09:40)
[2021-02-16] MEDS ORDERED: POTA10TA36 PO (09:40)
[2021-02-16] MEDS ORDERED: ISOS60TA71 PO (09:42)
[2021-02-16] MEDS ORDERED: iohexol 300mg/ml 100ml inj. ONE (09:47)
[2021-02-16] MEDS ORDERED: heparin 5,000 units/ml 10ML vial ONE (10:35)
[2021-02-16] MEDS ORDERED: PANT40TA54 PO (10:36)
[2021-02-16] MEDS ORDERED: CARV25TA56 PO (10:37)
[2021-02-16] MEDS ORDERED: IRBE150T51 PO (10:41)
[2021-02-16] MEDS ORDERED: GABA-530 PO (11:09)
[2021-02-16] MEDS: roflumilast 500mcg tablet PO SCH (12:00)
--- NOTE | 2021-02-16 12:11 | NUR ---
Unable to give SVN treatment. Patient in procedure,
[2021-02-16] MEDS: ferrous sulfate 325mg tablet PO SCH ×2 (13:24→17:23)
[2021-02-16] MEDS: gabapentin 100mg capsule PO SCH ×2 (13:24→20:40)
[2021-02-16 17:00] VITALS: BP 137/38
[2021-02-16 18:00] VITALS: BP 155/48
--- NOTE | 2021-02-16 18:30 | NUR ---
Problems reprioritized. Patient report given, questions answered & plan of care reviewed with Laurie Busby RN.
--- NOTE | 2021-02-16 18:41 | NUR ---
Patient in room PCU 3016. I have received report from Mary GAMEZ and Robert GAMEZ and had the opportunity to ask questions and assume patient care.
[2021-02-16] MEDS: atorvastatin 20mg tablet PO SCH ×2 (20:44→21:52)
[2021-02-16] MEDS: LORazepam 0.5 MG tablet PO PRN (21:53)
[2021-02-16 22:00] VITALS: BP 150/46
[2021-02-17] VITALS (17 sets, daily range): BP systolic 111–147; BP diastolic 27–55
--- NOTE | 2021-02-17 02:30 | NUR ---
Doctor paged regarding headache PAGER ID: [phone] MESSAGE: Re: Lucy Brunner [id number] here for GI bleed and anemia. Patient complaining of headache, nothing ordered. May we have an order for something for her headache? Thank you. Laurie [phone]
--- NOTE | 2021-02-17 02:31 | NUR ---
Spoke with Dr. Baeza regarding headache, Dr. freeman ordering Tylenol.
[2021-02-17] MEDS: acetaminophen 325mg tablet PO PRN ×2 (02:43→14:16)
[2021-02-17] MEDS: ipratropium/albuterol 3ml nebule NEB SCH ×6 (03:03→23:25)
--- NOTE | 2021-02-17 05:05 | NUR ---
Dr. carbone regarding reddness in groin and under breasts PAGER ID: [phone] MESSAGE: Re: Lucy Brunner 75F rm [id number] Here for anemia and GI bleed. Pt has moist, red, yeasty, rash with foul odor under breasts and in groin. May we have an order for Nystatin powder? Thank you. Laurie Min.
--- NOTE | 2021-02-17 06:17 | NUR ---
Problems reprioritized. Patient report given, questions answered & plan of care reviewed with Mary GAMEZ and Robert GAMEZ.
--- NOTE | 2021-02-17 06:30 | NUR ---
Patient in room PCU 3016. I have received report from FRANCO Sullivan and had the opportunity to ask questions and assume patient care.
[2021-02-17 06:34] LABS: BASOPHILS % (AUTO) 0.4 % (0-1); EOSINOPHILS # (AUTO) 0.2 X10'3 (0-0.9); EOSINOPHILS % (AUTO) 3.9 % (0-6); HEMATOCRIT 25.3 % (35.0-45.0); HEMOGLOBIN 7.9 g/dl (12.0-16.0); LYMPHOCYTES # (AUTO) 0.9 X10'3 (1.1-4.8); LYMPHOCYTES % (AUTO) 22.2 % (21-51); MEAN CORPUSCULAR HEMOGLOBIN 31.1 PG (27.0-31.0); MEAN CORPUSCULAR HGB CONC 31.1 g/dL (33.0-36.5); MEAN CORPUSCULAR VOLUME 99.8 FL (78-98); MEAN PLATELET VOLUME 7.5 FL (7.4-10.4); MONOCYTES # (AUTO) 0.5 X10'3 (0-0.9); MONOCYTES % (AUTO) 12.7 % (2-12); NEUTROPHILS # (AUTO) 2.4 X10'3 (1.8-7.7); NEUTROPHILS % (AUTO) 60.8 % (42-75); PLATELET COUNT 169 X10'3 (140-440); RED BLOOD COUNT 2.53 X10'6 (4.20-5.60); RED CELL DISTRIBUTION WIDTH 18.8 % (11.5-14.5); WHITE BLOOD COUNT 3.9 X10'3 (4.5-11.0)
--- NOTE | 2021-02-17 06:45 | NUR ---
Patient in room PCU 3016. I have received report from FRANCO Sullivan and had the opportunity to ask questions and assume patient care.
[2021-02-17 07:00] LABS: ALBUMIN 2.8 G/DL (3.4-5.0); ANION GAP 6 (8-16); BLOOD UREA NITROGEN 22 MG/DL (7-18); CALCIUM 8.7 MG/DL (8.5-10.1); CHLORIDE 108 MMOL/L (99-107); CREATININE 1.16 MG/DL (0.40-0.90); GLUCOSE 82 MG/DL (70-104); MAGNESIUM 2.1 MG/DL (1.5-2.4); POTASSIUM 4.4 MMOL/L (3.5-5.1); SODIUM 146 MMOL/L (135-145); TOTAL CARBON DIOXIDE 32.5 MMOL/L (24-32); eGFR 46 ML/MIN
[2021-02-17] MEDS: budesonide 0.5mg/2ml UD nebule IH SCH ×2 (07:12→19:57)
[2021-02-17] MEDS: ARFORMOTEROL TARTRATE 15 MCG/2 ML IH SCH ×2 (07:18→20:00)
[2021-02-17] MEDS: ferrous sulfate 325mg tablet PO SCH ×3 (07:54→16:22)
[2021-02-17] MEDS: gabapentin 100mg capsule PO SCH ×3 (07:54→20:08)
[2021-02-17] MEDS: furosemide 40mg tablet PO SCH (07:54)
[2021-02-17] MEDS: lactobacillus rhamnosus 10,000 MMU CELLS/CAPSULE PO SCH ×2 (07:55→20:07)
[2021-02-17] MEDS: fluticasone nasal spray 16GM bottle NS SCH (07:55)
[2021-02-17] MEDS: gemfibrozil 600mg tablet PO SCH ×2 (07:58→20:07)
[2021-02-17] MEDS: REVEFENACIN 175 MCG/3 ML IH SCH (08:00)
[2021-02-17] MEDS: K and/or MAG REPLACEMENT MC SCH ×2 (08:00→20:00)
[2021-02-17] MEDS: metoprolol tartrate 50mg tablet PO SCH (08:00)
[2021-02-17] MEDS: HYDROchlorothiazide 12.5mg capsule PO SCH (08:00)
[2021-02-17] MEDS: pantoprazole 40 MG vial IV SCH ×2 (08:00→20:08)
[2021-02-17] MEDS: roflumilast 500mcg tablet PO SCH (08:00)
[2021-02-17] MEDS: losartan 50mg tablet PO SCH (08:00)
[2021-02-17] MEDS: OMEGA-3/DHA/EPA/FISH OIL 1 EACH CAPSULE.DR PO SCH ×2 (08:01→20:07)
[2021-02-17] MEDS: nystatin 15 GM powder TP SCH ×3 (08:03→20:09)
[2021-02-17] MEDS: lisinopril 20mg tablet PO SCH (08:05)
--- NOTE | 2021-02-17 09:27 | NUR ---
Malnutrition consult: Pt reports wt loss with decreased appetite per malnutrition risk screen with RN. Most recent scaled wt hx in EMR is 95.45 kg taken 06/24/2020 with bed scale, current documented wt is 90 kg though isn't scaled. If current documented wt is accurate this would be 171% IBW and non-significant wt loss of 5.7% in greater than 7 months. Pt admit with GIB, currently NPO. Pt with no documented significant edema or decrease in muscle strength. Pt currently lacks a minimum of two criteria for malnutrition. Will continue to follow and monitor qualifying criteria. Addendum: 02/17/21 at [address] Amended: Links added.
[2021-02-17] MEDS ORDERED: MIDAZolam 1 MG/ML 5ML VIAL ONE ×2 (11:36→12:22)
[2021-02-17] MEDS ORDERED: LIDOcaine Viscous 15ml cup ONE (11:36)
[2021-02-17] MEDS ORDERED: fentaNYL/PF 50MCG/1 ML 2ML syringe ONE ×2 (11:36→12:22)
--- NOTE | 2021-02-17 14:18 | NUR ---
Ferrous sulfate held due to patient not eating any lunch.
--- NOTE | 2021-02-17 14:25 | NUR ---
notified PAGER ID: [phone] MESSAGE: Lucy Dempsey [id number] pt is back from GI lab. JARETT thank you. FRANCO Jones ext [phone]
--- NOTE | 2021-02-17 15:42 | NUR ---
notified. PAGER ID: [phone] MESSAGE: Re: Lucy Brunner. [id number]. Critical lab result: Positive MRSA in Nares. thanks. Mary. 2716.
--- NOTE | 2021-02-17 16:01 | NUR ---
notified MESSAGE: Lucy Taylor u 3022 B would you like pt to resume hypertensive medication morning medications were held per your note. Thank you. FRANCO Jones [phone]
--- NOTE | 2021-02-17 17:09 | NUR ---
notified. PAGER ID: [phone] MESSAGE: Re: Lucy Munguia. [id number]. Diastolic BP is soft post operatively. Sometimes in 20's and 30's. Otherwise patient is asymptomatic. Do you want fluids run? thanks. Mary. [phone].
--- NOTE | 2021-02-17 17:58 | NUR ---
Precepetee documentation: I have reviewed and agree with all interventions, assessments performed and documented by FRANCO Jones. Preceptee Medication Administration: For this medication-pass time frame, all medication were reviewed, dispensed, administered and documented per hospital policy by FRANCO Jones.
--- NOTE | 2021-02-17 18:19 | NUR ---
Problems reprioritized. Patient report given, questions answered & plan of care reviewed with FRANCO Rubin.
[2021-02-17] MEDS: LORazepam 0.5 MG tablet PO PRN (20:13)
[2021-02-18] VITALS (7 sets, daily range): BP systolic 101–142; BP diastolic 31–52
[2021-02-18] MEDS: ipratropium/albuterol 3ml nebule NEB SCH ×6 (03:08→23:08)
--- NOTE | 2021-02-18 06:22 | NUR ---
Report given to FRANCO Sandhu.
[2021-02-18 06:43] LABS: BASOPHILS % (AUTO) 0.2 % (0-1); EOSINOPHILS # (AUTO) 0.1 X10'3 (0-0.9); EOSINOPHILS % (AUTO) 1.6 % (0-6); HEMATOCRIT 24.5 % (35.0-45.0); HEMOGLOBIN 7.7 g/dl (12.0-16.0); LYMPHOCYTES # (AUTO) 0.6 X10'3 (1.1-4.8); LYMPHOCYTES % (AUTO) 9.9 % (21-51); MEAN CORPUSCULAR HEMOGLOBIN 31.6 PG (27.0-31.0); MEAN CORPUSCULAR HGB CONC 31.6 g/dL (33.0-36.5); MEAN CORPUSCULAR VOLUME 99.8 FL (78-98); MEAN PLATELET VOLUME 7.7 FL (7.4-10.4); MONOCYTES # (AUTO) 0.7 X10'3 (0-0.9); MONOCYTES % (AUTO) 10.7 % (2-12); NEUTROPHILS # (AUTO) 4.9 X10'3 (1.8-7.7); NEUTROPHILS % (AUTO) 77.6 % (42-75); PLATELET COUNT 177 X10'3 (140-440); RED BLOOD COUNT 2.45 X10'6 (4.20-5.60); RED CELL DISTRIBUTION WIDTH 18.1 % (11.5-14.5); WHITE BLOOD COUNT 6.3 X10'3 (4.5-11.0)
[2021-02-18 06:56] LABS: ALBUMIN 2.6 G/DL (3.4-5.0); ANION GAP 8 (8-16); BLOOD UREA NITROGEN 34 MG/DL (7-18); CALCIUM 8.3 MG/DL (8.5-10.1); CHLORIDE 106 MMOL/L (99-107); GLUCOSE 118 MG/DL (70-104); MAGNESIUM 2.1 MG/DL (1.5-2.4); POTASSIUM 4.9 MMOL/L (3.5-5.1); SODIUM 145 MMOL/L (135-145); TOTAL CARBON DIOXIDE 30.7 MMOL/L (24-32); eGFR 29 ML/MIN
[2021-02-18] MEDS: budesonide 0.5mg/2ml UD nebule IH SCH ×2 (06:59→19:21)
[2021-02-18] MEDS: lactobacillus rhamnosus 10,000 MMU CELLS/CAPSULE PO SCH ×2 (07:51→20:33)
[2021-02-18] MEDS: metoprolol tartrate 50mg tablet PO SCH (07:52)
[2021-02-18] MEDS: ferrous sulfate 325mg tablet PO SCH ×3 (07:52→16:44)
[2021-02-18] MEDS: pantoprazole 40 MG vial IV SCH ×2 (07:53→20:34)
[2021-02-18] MEDS: fluticasone nasal spray 16GM bottle NS SCH (07:53)
[2021-02-18] MEDS: gemfibrozil 600mg tablet PO SCH ×2 (07:53→20:34)
[2021-02-18] MEDS: losartan 50mg tablet PO SCH (07:53)
[2021-02-18] MEDS: gabapentin 100mg capsule PO SCH ×3 (07:53→20:34)
[2021-02-18] MEDS: OMEGA-3/DHA/EPA/FISH OIL 1 EACH CAPSULE.DR PO SCH ×2 (07:53→20:34)
[2021-02-18] MEDS: roflumilast 500mcg tablet PO SCH (07:54)
[2021-02-18] MEDS: K and/or MAG REPLACEMENT MC SCH ×2 (07:55→20:00)
[2021-02-18] MEDS: nystatin 15 GM powder TP SCH ×3 (07:55→21:00)
[2021-02-18] MEDS: ARFORMOTEROL TARTRATE 15 MCG/2 ML IH SCH ×2 (08:00→20:00)
[2021-02-18] MEDS: REVEFENACIN 175 MCG/3 ML IH SCH (08:00)
[2021-02-18] MEDS: normal saline 1000ml 1,000 ML IV SCH ×2 (13:47→23:08)
--- NOTE | 2021-02-18 15:30 | NUR ---
Patient in room PCU 3016. I have received report from FRANCO Sandhu and had the opportunity to ask questions and assume patient care.
[2021-02-18] MEDS: acetaminophen 325mg tablet PO PRN (16:44)
[2021-02-18 17:45] LABS: % IRON SATURATION 55 % (11-46); IRON 187 UG/DL (49-151); TOTAL IRON BINDING CAPACITY 337 UG/DL (259-388)
--- NOTE | 2021-02-18 18:00 | NUR ---
report received from FRANCO Gustafson.
--- NOTE | 2021-02-18 18:30 | NUR ---
Problems reprioritized. Patient report given, questions answered & plan of care reviewed with FRANCO Rubin.
[2021-02-18] MEDS: atorvastatin 20mg tablet PO SCH (20:34)
[2021-02-19 02:00] VITALS: BP 119/37
[2021-02-19] MEDS: ipratropium/albuterol 3ml nebule NEB SCH ×4 (02:29→15:21)
--- NOTE | 2021-02-19 06:17 | NUR ---
REPORT GIVEN TO FRANCO MUNIZ.
[2021-02-19 06:47] VITALS: BP 138/72
[2021-02-19 06:54] LABS: BASOPHILS % (AUTO) 0.2 % (0-1); EOSINOPHILS # (AUTO) 0.1 X10'3 (0-0.9); EOSINOPHILS % (AUTO) 2.5 % (0-6); HEMATOCRIT 24.8 % (35.0-45.0); HEMOGLOBIN 7.8 g/dl (12.0-16.0); LYMPHOCYTES # (AUTO) 0.9 X10'3 (1.1-4.8); LYMPHOCYTES % (AUTO) 17.2 % (21-51); MEAN CORPUSCULAR HEMOGLOBIN 31.3 PG (27.0-31.0); MEAN CORPUSCULAR HGB CONC 31.4 g/dL (33.0-36.5); MEAN CORPUSCULAR VOLUME 99.8 FL (78-98); MEAN PLATELET VOLUME 7.6 FL (7.4-10.4); MONOCYTES # (AUTO) 0.6 X10'3 (0-0.9); MONOCYTES % (AUTO) 11.9 % (2-12); NEUTROPHILS # (AUTO) 3.4 X10'3 (1.8-7.7); NEUTROPHILS % (AUTO) 68.2 % (42-75); PLATELET COUNT 177 X10'3 (140-440); RED BLOOD COUNT 2.49 X10'6 (4.20-5.60); RED CELL DISTRIBUTION WIDTH 17.4 % (11.5-14.5); WHITE BLOOD COUNT 5.1 X10'3 (4.5-11.0)
[2021-02-19] MEDS: budesonide 0.5mg/2ml UD nebule IH SCH (07:06)
[2021-02-19 07:30] LABS: ALBUMIN 2.5 G/DL (3.4-5.0); ANION GAP 3 (8-16); BLOOD UREA NITROGEN 29 MG/DL (7-18); BUN/CREATININE RATIO 25.7 (6.6-38.0); CALCIUM 8.9 MG/DL (8.5-10.1); CHLORIDE 111 MMOL/L (99-107); CREATININE 1.13 MG/DL (0.40-0.90); GLUCOSE 97 MG/DL (70-104); MAGNESIUM 2.3 MG/DL (1.5-2.4); POTASSIUM 4.6 MMOL/L (3.5-5.1); SODIUM 147 MMOL/L (135-145); TOTAL CARBON DIOXIDE 32.6 MMOL/L (24-32); eGFR 47 ML/MIN
[2021-02-19] MEDS: ferrous sulfate 325mg tablet PO SCH (07:50)
[2021-02-19] MEDS: fluticasone nasal spray 16GM bottle NS SCH (07:51)
[2021-02-19] MEDS: lactobacillus rhamnosus 10,000 MMU CELLS/CAPSULE PO SCH (07:51)
[2021-02-19] MEDS: losartan 50mg tablet PO SCH (07:53)
[2021-02-19] MEDS: gemfibrozil 600mg tablet PO SCH (07:54)
[2021-02-19] MEDS: OMEGA-3/DHA/EPA/FISH OIL 1 EACH CAPSULE.DR PO SCH (07:55)
[2021-02-19] MEDS: metoprolol tartrate 50mg tablet PO SCH (07:56)
[2021-02-19] MEDS: roflumilast 500mcg tablet PO SCH (07:58)
[2021-02-19] MEDS: nystatin 15 GM powder TP SCH ×2 (07:59→13:00)
[2021-02-19] MEDS: ARFORMOTEROL TARTRATE 15 MCG/2 ML IH SCH (08:00)
[2021-02-19] MEDS: REVEFENACIN 175 MCG/3 ML IH SCH (08:00)
[2021-02-19] MEDS: K and/or MAG REPLACEMENT MC SCH (08:00)
[2021-02-19] MEDS: pantoprazole 40 MG vial IV SCH (08:39)
[2021-02-19] MEDS: normal saline 1000ml 1,000 ML IV SCH (08:40)
--- NOTE | 2021-02-19 08:45 | NUR ---
Scan bar did not work on Roflumilast. Administered medication manually in computer.
--- NOTE | 2021-02-19 11:05 | NUR ---
Patient verbally described BM color and size to nursing unit coordinator during assessment.
[2021-02-19 11:32] VITALS: BP 128/37
--- NOTE | 2021-02-19 11:55 | NUR ---
Student Medication Administration: For this medication-pass time frame, all medication were reviewed, dispensed, administered and documented per hospital policy by tejas Pulido.
--- NOTE | 2021-02-19 11:55 | NUR ---
Student documentation: I have reviewed and agree with all interventions, assessments performed and documented by Ashok, nursing center tutor.
[2021-02-19] MEDS ORDERED: gabapentin 300mg capsule PO SCH (21:00)
== END 2021-02-19 16:08 | disposition home or self-care (01) | DRG 919 ==
LOC: ER 12:03 → ED HOLD 14:10 → PCU 3S 02-16 14:22
PROVIDERS: ADMIT Internal Medicine; ATTEND Internal Medicine
PROC: C713YZZ Planar Nuclear Medicine Imaging of Blood using Other Radionuclide (ICD-10-PCS; 2021-02-15)
PROC: BW211ZZ Computerized Tomography (CT Scan) of Abdomen and Pelvis using Low Osmolar Contrast (ICD-10-PCS; 2021-02-16)
PROC: 0W3P8ZZ Control Bleeding in Gastrointestinal Tract, Via Natural or Artificial Opening Endoscopic (ICD-10-PCS; principal; 2021-02-17)
DX: K91.840 Postprocedural hemorrhage of a digestive system organ or structure following a digestive system procedure (principal); N17.0 Acute kidney failure with tubular necrosis; J96.10 Chronic respiratory failure, unspecified whether with hypoxia or hypercapnia; K31.819 Angiodysplasia of stomach and duodenum without bleeding; D50.0 Iron deficiency anemia secondary to blood loss (chronic); E78.00 Pure hypercholesterolemia, unspecified; I11.0 Hypertensive heart disease with heart failure; I50.9 Heart failure, unspecified; J44.9 Chronic obstructive pulmonary disease, unspecified; G62.9 Polyneuropathy, unspecified; K21.9 Gastro-esophageal reflux disease without esophagitis; Y83.8 Other surgical procedures as the cause of abnormal reaction of the patient, or of later complication, without mention of misadventure at the time of the procedure; M19.90 Unspecified osteoarthritis, unspecified site; K57.30 Diverticulosis of large intestine without perforation or abscess without bleeding; K80.20 Calculus of gallbladder without cholecystitis without obstruction; Z87.11 Personal history of peptic ulcer disease; Z87.19 Personal history of other diseases of the digestive system; Z90.710 Acquired absence of both cervix and uterus; Z88.5 Allergy status to narcotic agent; Z79.899 Other long term (current) drug therapy; Y92.89 Other specified places as the place of occurrence of the external cause
CPT/HCPCS: 36415; 43227; 43247; 71045; 74177; 78278; 80048; 80053; 81001; 82728; 83540; 83550; 83690; 83735; 85008; 85025; 85610; 85730; 86885; 86900; 86901; 86920; 87081; 88305; 93005; 93306; 94640; 94760; 99152; 99153; 99285; A4620; A9560; C1773; C9113; G0378; J1644; J2250; J3010; J7030; J7040; J7626; Q9967

== ENCOUNTER 2021-07-09 15:39 | Inpatient (IN) | payer MEDICARE ==
[~2021-07-09] VITALS: Ht 154.9 cm; Wt 89.1 kg
[~2021-07-09 15:39] MED LIST changes: +ALBU6.7H9 IH; +ARFO15VI NEB; +BUDE10.22 IH; -CALC60CR5 TOP; -CARV-50 PO; +CARV25TA56 PO; +CHOL10006 PO; +FERR-39 PO; -FERR325T28 PO; +FURO-149 PO; -FURO-150 PO; -LORA-268 PO; +LORA-269 PO; -MYC15CR TOP; +POTA10TA36 PO; -POTA20TA19 PO; -ROFL250T PO; +ROFL500T7 PO
[2021-07-09 19:24] LABS: BASOPHILS % (AUTO) 0.4 % (0-1); EOSINOPHILS # (AUTO) 0.1 X10'3 (0-0.9); EOSINOPHILS % (AUTO) 2.3 % (0-6); LYMPHOCYTES % (AUTO) 17.8 % (21-51); MEAN CORPUSCULAR HEMOGLOBIN 27.9 PG (27.0-31.0); MEAN CORPUSCULAR HGB CONC 30.7 g/dL (33.0-36.5); MEAN CORPUSCULAR VOLUME 90.7 FL (78-98); MONOCYTES # (AUTO) 0.6 X10'3 (0-0.9); MONOCYTES % (AUTO) 11.6 % (2-12); NEUTROPHILS # (AUTO) 3.7 X10'3 (1.8-7.7); NEUTROPHILS % (AUTO) 67.9 % (42-75); PLATELET COUNT 251 X10'3 (140-440); RED BLOOD COUNT 1.65 X10'6 (4.20-5.60); RED CELL DISTRIBUTION WIDTH 16.9 % (11.5-14.5); WHITE BLOOD COUNT 5.5 X10'3 (4.5-11.0)
[2021-07-09 19:27] LABS: HEMOGLOBIN 4.6 g/dl (12.0-16.0)
[2021-07-09 19:28] LABS: HEMATOCRIT 14.9 % (35.0-45.0)
[2021-07-09] MEDS ORDERED: OMEP40CA21 PO (19:28)
[2021-07-09] MEDS ORDERED: SPIR25TA5 PO (19:29)
[2021-07-09 19:37] LABS: ALANINE AMINOTRANSFERASE 35 U/L (12-78); ALBUMIN 2.9 G/DL (3.4-5.0); ALBUMIN/GLOBULIN RATIO 0.7 (1.1-1.5); ALKALINE PHOSPHATASE 224 IU/L (46-116); ANION GAP 7 (8-16); ASPARTATE AMINO TRANSFERASE 23 U/L (10-37); BILIRUBIN,TOTAL 0.4 MG/DL (0.1-1.0); BLOOD UREA NITROGEN 61 MG/DL (7-18); BUN/CREATININE RATIO 39.6 (6.6-38.0); CALCIUM 9.1 MG/DL (8.5-10.1); CHLORIDE 111 MMOL/L (99-107); CREATININE 1.54 MG/DL (0.40-0.90); GLUCOSE 109 MG/DL (70-104); SODIUM 142 MMOL/L (135-145); TOTAL CARBON DIOXIDE 23.6 MMOL/L (24-32); TOTAL PROTEIN 7.1 G/DL (6.4-8.2); eGFR 33 ML/MIN
[2021-07-09 19:38] LABS: PARTIAL THROMBOPLASTIN TIME 26 SECONDS (22-32)
[2021-07-09] MEDS ORDERED: SODIUM ZIRCONIUM CYCLOSILICATE 10 GM POWD.PACK PO STA (19:42)
[2021-07-09] MEDS ORDERED: albuterol 2.5 MG/3 ML nebule NEB ONE (19:45)
[2021-07-09] MEDS ORDERED: calcium chloride 100 MG/1 ML inj IV ONE (19:45)
[2021-07-09] MEDS ORDERED: ondansetron/PF 4mg/2ml inj IV ONE (20:40)
[2021-07-09 20:44] LABS: CLARITY,URINE CLEAR (Clear); COLOR,URINE YELLOW (Yellow); UA COLLECTION TYPE CLN CATCH MIDSTREAM
[2021-07-09 20:45] LABS: GLUCOSE, URINE NEGATIVE (Neg); KETONES,URINE NEGATIVE (Neg); LEUKOCYTE ESTERASE ,URINE NEGATIVE (Neg); NITRITES, URINE NEGATIVE (Neg); OCCULT BLOOD,URINE NEGATIVE (Neg); PROTEIN,URINE NEGATIVE (Neg); UROBILINOGEN,URINE 0.2 E.U/dL (0.2-1.0)
[2021-07-09 21:08] VITALS: BP 120/47
[2021-07-09 21:25] VITALS: BP 129/44
[2021-07-09] MEDS ORDERED: acetaminophen 325mg tablet PO ONE (21:35)
[2021-07-09] MEDS ORDERED: mag hydrox/Alum hydrox/simeth 30ml oral suspension PO PRN (22:35)
[2021-07-09] MEDS ORDERED: magnesium hydroxide 30ml (MOM) UD suspension PO PRN (22:35)
[2021-07-09] MEDS ORDERED: ondansetron/PF 4mg/2ml inj IV PRN (22:35)
[2021-07-09] MEDS ORDERED: normal saline 1000ml 1,000 ML IV SCH (22:35)
[2021-07-09] MEDS ORDERED: pantoprazole 40 MG vial IV ONE (22:40)
[2021-07-09 23:56] VITALS: BP 117/51
[2021-07-10] VITALS (19 sets, daily range): BP systolic 100–166; BP diastolic 25–77
[2021-07-10] MEDS ORDERED: albuterol 2.5 MG/3 ML nebule NEB PRN (00:10)
--- NOTE | 2021-07-10 00:30 | NUR ---
Received report from Clive in the ER. Pt arrived on the unit via gurney and was able to ambulate to her bed with minimal assistance. Pt belongings were placed at bedside, her phone and purse were kept in bed with her. Pt was on 2L of oxygen via N/C, she was saline locked and in her own clothes. Pt had no signs of distress. Will continue to monitor.
[2021-07-10] MEDS: LORazepam 1 MG tablet PO PRN ×2 (02:05→21:52)
[2021-07-10] MEDS: ipratropium/albuterol 3ml nebule IH SCH ×4 (02:13→20:49)
--- NOTE | 2021-07-10 06:17 | NUR ---
Problems reprioritized. Patient report given, questions answered & plan of care reviewed with Radha GAMEZ.
[2021-07-10 06:43] LABS: BASOPHILS % (AUTO) 0.3 % (0-1); EOSINOPHILS # (AUTO) 0.2 X10'3 (0-0.9); LYMPHOCYTES % (AUTO) 16.5 % (21-51); MEAN CORPUSCULAR HEMOGLOBIN 28.5 PG (27.0-31.0); MEAN CORPUSCULAR HGB CONC 32.1 g/dL (33.0-36.5); MEAN CORPUSCULAR VOLUME 88.7 FL (78-98); MONOCYTES # (AUTO) 0.8 X10'3 (0-0.9); MONOCYTES % (AUTO) 12.1 % (2-12); NEUTROPHILS # (AUTO) 4.3 X10'3 (1.8-7.7); NEUTROPHILS % (AUTO) 68.1 % (42-75); PLATELET COUNT 247 X10'3 (140-440); RED BLOOD COUNT 2.44 X10'6 (4.20-5.60); RED CELL DISTRIBUTION WIDTH 16.7 % (11.5-14.5); WHITE BLOOD COUNT 6.3 X10'3 (4.5-11.0)
[2021-07-10 06:46] LABS: ALANINE AMINOTRANSFERASE 28 U/L (12-78); ALBUMIN 2.6 G/DL (3.4-5.0); ALBUMIN/GLOBULIN RATIO 0.7 (1.1-1.5); ALKALINE PHOSPHATASE 211 IU/L (46-116); ANION GAP 7 (8-16); ASPARTATE AMINO TRANSFERASE 25 U/L (10-37); BILIRUBIN,TOTAL 1.1 MG/DL (0.1-1.0); BLOOD UREA NITROGEN 54 MG/DL (7-18); BUN/CREATININE RATIO 41.9 (6.6-38.0); CALCIUM 9.2 MG/DL (8.5-10.1); CHLORIDE 112 MMOL/L (99-107); CREATININE 1.29 MG/DL (0.40-0.90); GLUCOSE 87 MG/DL (70-104); POTASSIUM 5.4 MMOL/L (3.5-5.1); SODIUM 143 MMOL/L (135-145); TOTAL CARBON DIOXIDE 23.9 MMOL/L (24-32); TOTAL PROTEIN 6.4 G/DL (6.4-8.2); eGFR 41 ML/MIN
[2021-07-10 06:49] LABS: HEMATOCRIT 21.6 % (35.0-45.0)
--- NOTE | 2021-07-10 07:20 | NUR ---
Patient in room PCU 3018. I have received report from Trina GAMEZ and had the opportunity to ask questions and assume patient care. Patient sleeping in bed in no acute distress. Received telephone order to transfuse one unit PRBC for Hgb 7 Hct 21.6.
--- NOTE | 2021-07-10 07:26 | NUR ---
Page to respiratory [id number] Myesha. Pt requesting breathing tx. Thanks Radha [phone]
[2021-07-10] MEDS: budesonide 0.5mg/2ml UD nebule IH SCH ×2 (07:55→20:49)
[2021-07-10] MEDS: carVEDilol 12.5mg tablet PO SCH ×2 (09:11→21:39)
[2021-07-10] MEDS: docusate sod 100mg capsule PO SCH ×2 (09:11→21:39)
[2021-07-10] MEDS: acetaminophen 325mg tablet PO PRN ×2 (09:12→16:08)
[2021-07-10] MEDS: nystatin 15 GM powder TP SCH ×3 (09:13→21:39)
[2021-07-10] MEDS: roflumilast 500mcg tablet PO SCH (09:13)
[2021-07-10] MEDS: pantoprazole 40 MG vial IV SCH (09:45)
--- NOTE | 2021-07-10 11:27 | NUR ---
Malnutrition: Pt admitted w/ possible GI bleed and anemia per EMR. Pt reports a decrease in appetite and ability to eat d/t feeling weak over the past month. Pt reports that she was still able to consume smaller meals and snacks throughout the day and her son would be able to prepare food for her at times. Pt states she lost about 10lb in the last month, though current wt is consistent from previous admit in January. No visible signs of muscle or fat waisting observed at bedside, pending physical assessment. At this time pt does not meet minimum criteria for malnutrition. Will continue to monitor. Addendum: 07/10/21 at [address] Amended: Links added.
[2021-07-10] MEDS: ARFORMOTEROL TARTRATE 15 MCG/2 ML IH SCH ×2 (11:52→21:38)
--- NOTE | 2021-07-10 14:37 | NUR ---
Meds given late today due to being out of ratio and high acuity patients and most of my patients had bad IVs this am .
[2021-07-10 17:03] LABS: HEMATOCRIT 26.3 % (35.0-45.0); HEMOGLOBIN 8.5 g/dl (12.0-16.0); MEAN CORPUSCULAR HEMOGLOBIN 28.5 PG (27.0-31.0); MEAN CORPUSCULAR HGB CONC 32.1 g/dL (33.0-36.5); MEAN CORPUSCULAR VOLUME 88.8 FL (78-98); MEAN PLATELET VOLUME 6.7 FL (7.4-10.4); PLATELET COUNT 248 X10'3 (140-440); RED BLOOD COUNT 2.96 X10'6 (4.20-5.60); RED CELL DISTRIBUTION WIDTH 16.3 % (11.5-14.5); WHITE BLOOD COUNT 7.2 X10'3 (4.5-11.0)
--- NOTE | 2021-07-10 17:42 | NUR ---
Page Sent promotional table spacer PAGER ID: [phone] MESSAGE: [id number] Myesha. Is patient still getting colonoscopy tomorrow ? There are no orders for bowel prep. Radha [id number]
--- NOTE | 2021-07-10 18:12 | NUR ---
Patient in room PCU 3018. I have received report from FRANCO Franz and had the opportunity to ask questions and assume patient care.
--- NOTE | 2021-07-10 18:12 | NUR ---
Problems reprioritized. Patient report given, questions answered & plan of care reviewed with Marilyn GAMEZ and Kelly GAMEZ.
[2021-07-10] MEDS ORDERED: iohexol 300mg/ml 100ml inj. ONE (18:54)
[2021-07-10] MEDS ORDERED: fentaNYL/PF 50MCG/1 ML 2ML syringe ONE (19:13)
[2021-07-10] MEDS ORDERED: LIDOcaine Viscous 15ml cup ONE (19:13)
[2021-07-10] MEDS ORDERED: MIDAZolam 1 MG/ML 5ML VIAL ONE (19:13)
[2021-07-11 02:00] VITALS: BP 140/41
--- NOTE | 2021-07-11 02:20 | NUR ---
Lucy Brunner rm [id number] Pt is requesting a breathing tx SPIKE Thank you
[2021-07-11] MEDS: ipratropium/albuterol 3ml nebule IH SCH ×3 (02:29→14:59)
--- NOTE | 2021-07-11 06:18 | NUR ---
[place] documentation: I have reviewed and agree with all interventions, assessments performed and documented by FRANCO Mendoza. [place] Medication Administration: For this medication-pass time frame, all medication were reviewed, dispensed, administered and documented per hospital policy by FRANCO Mendoza.
--- NOTE | 2021-07-11 06:48 | NUR ---
Problems reprioritized. Patient report given, questions answered & plan of care reviewed with Shira RN.
[2021-07-11 06:49] LABS: BASOPHILS % (AUTO) 0.2 % (0-1); EOSINOPHILS # (AUTO) 0.1 X10'3 (0-0.9); EOSINOPHILS % (AUTO) 1.3 % (0-6); HEMATOCRIT 25.9 % (35.0-45.0); HEMOGLOBIN 8.5 g/dl (12.0-16.0); LYMPHOCYTES # (AUTO) 0.6 X10'3 (1.1-4.8); LYMPHOCYTES % (AUTO) 8.5 % (21-51); MEAN CORPUSCULAR HEMOGLOBIN 28.2 PG (27.0-31.0); MEAN CORPUSCULAR HGB CONC 32.7 g/dL (33.0-36.5); MEAN CORPUSCULAR VOLUME 86.2 FL (78-98); MEAN PLATELET VOLUME 6.6 FL (7.4-10.4); MONOCYTES # (AUTO) 0.9 X10'3 (0-0.9); MONOCYTES % (AUTO) 11.7 % (2-12); NEUTROPHILS % (AUTO) 78.3 % (42-75); PLATELET COUNT 227 X10'3 (140-440); RED CELL DISTRIBUTION WIDTH 16.4 % (11.5-14.5); WHITE BLOOD COUNT 7.7 X10'3 (4.5-11.0)
[2021-07-11 06:58] VITALS: BP 153/44
[2021-07-11 07:23] LABS: ALANINE AMINOTRANSFERASE 29 U/L (12-78); ALBUMIN 2.7 G/DL (3.4-5.0); ALBUMIN/GLOBULIN RATIO 0.6 (1.1-1.5); ALKALINE PHOSPHATASE 216 IU/L (46-116); ANION GAP 9 (8-16); ASPARTATE AMINO TRANSFERASE 23 U/L (10-37); BILIRUBIN,TOTAL 0.9 MG/DL (0.1-1.0); BLOOD UREA NITROGEN 35 MG/DL (7-18); BUN/CREATININE RATIO 31.8 (6.6-38.0); CALCIUM 8.7 MG/DL (8.5-10.1); CHLORIDE 112 MMOL/L (99-107); GLUCOSE 92 MG/DL (70-104); POTASSIUM 5.7 MMOL/L (3.5-5.1); SODIUM 143 MMOL/L (135-145); TOTAL CARBON DIOXIDE 22.5 MMOL/L (24-32); TOTAL PROTEIN 6.9 G/DL (6.4-8.2); eGFR 49 ML/MIN
[2021-07-11] MEDS: budesonide 0.5mg/2ml UD nebule IH SCH (08:15)
[2021-07-11] MEDS: ARFORMOTEROL TARTRATE 15 MCG/2 ML IH SCH (08:21)
[2021-07-11] MEDS ORDERED: sodium polystyrene sulfonate 15gm/60ml oral suspension PO ONE (08:35)
[2021-07-11] MEDS: pantoprazole 40 MG vial IV SCH (08:57)
[2021-07-11] MEDS: docusate sod 100mg capsule PO SCH (08:57)
[2021-07-11] MEDS: roflumilast 500mcg tablet PO SCH (08:58)
[2021-07-11] MEDS: carVEDilol 12.5mg tablet PO SCH (08:58)
[2021-07-11] MEDS: nystatin 15 GM powder TP SCH ×2 (08:58→13:00)
[2021-07-11] MEDS: acetaminophen 325mg tablet PO PRN (10:17)
[2021-07-11 11:00] VITALS: BP 102/32
[2021-07-15 08:57] LABS: OCCULT BLOOD STOOL NEGATIVE (Neg)
== END 2021-07-11 17:34 | disposition home or self-care (01) | DRG 378 ==
LOC: ER 15:40 → UNDOADMIN 22:34 → ED HOLD 22:34 → PCU 3S 07-10 00:25 → ED HOLD 07-10 00:25
PROVIDERS: ADMIT Internal Medicine; ATTEND Family Medicine
PROC: 30233N1 Transfusion of Nonautologous Red Blood Cells into Peripheral Vein, Percutaneous Approach (ICD-10-PCS; 2021-07-09)
PROC: 0DJ08ZZ Inspection of Upper Intestinal Tract, Via Natural or Artificial Opening Endoscopic (ICD-10-PCS; principal; 2021-07-10)
PROC: C713YZZ Planar Nuclear Medicine Imaging of Blood using Other Radionuclide (ICD-10-PCS; 2021-07-10)
PROC: BW211ZZ Computerized Tomography (CT Scan) of Abdomen and Pelvis using Low Osmolar Contrast (ICD-10-PCS; 2021-07-10)
DX: K92.2 Gastrointestinal hemorrhage, unspecified (principal); J96.10 Chronic respiratory failure, unspecified whether with hypoxia or hypercapnia; D62 Acute posthemorrhagic anemia; K86.2 Cyst of pancreas; E87.5 Hyperkalemia; I11.0 Hypertensive heart disease with heart failure; M19.90 Unspecified osteoarthritis, unspecified site; K21.9 Gastro-esophageal reflux disease without esophagitis; E78.00 Pure hypercholesterolemia, unspecified; K31.7 Polyp of stomach and duodenum; I50.9 Heart failure, unspecified; J44.9 Chronic obstructive pulmonary disease, unspecified; Z90.710 Acquired absence of both cervix and uterus; Z87.11 Personal history of peptic ulcer disease; Q27.9 Congenital malformation of peripheral vascular system, unspecified; Z88.5 Allergy status to narcotic agent; Z87.01 Personal history of pneumonia (recurrent); Z79.899 Other long term (current) drug therapy; Z87.891 Personal history of nicotine dependence
CPT/HCPCS: 36415; 36430; 43235; 71045; 74178; 78278; 80053; 81003; 82272; 85025; 85027; 85610; 85730; 86301; 86885; 86900; 86901; 86920; 87081; 93005; 94640; 94760; 99152; 99291; A4620; A9560; C9113; G0378; J2250; J2405; J3010; J7626; P9016; Q9967

== ENCOUNTER 2021-12-17 13:30 | Day surgery (SDC) | payer MEDICARE ==
[~2021-12-17] VITALS: Ht 154.9 cm; Wt 90.0 kg
[~2021-12-17 13:30] MED LIST changes: -CHOL10006 PO; -FERR-39 PO; -GABA-530 PO; -IRBE150T51 PO; -ISOS60TA71 PO; +OMEP40CA21 PO; -PANT40TA54 PO; -POTA10TA36 PO
[2021-12-17 13:54] VITALS: BP 139/55
[2021-12-17] MEDS ORDERED: fentaNYL/PF 50MCG/1 ML 2ML syringe ONE (15:34)
[2021-12-17] MEDS ORDERED: MIDAZolam 1 MG/ML 5ML VIAL ONE (15:34)
[2021-12-17 16:00] VITALS: BP 130/49
[2021-12-17 16:10] VITALS: BP 131/47
[2021-12-17 16:20] VITALS: BP 128/48
[2021-12-17 16:30] VITALS: BP 120/45
== END 2021-12-17 16:30 | disposition home or self-care (01) ==
LOC: GI LAB 13:30
PROVIDERS: ATTEND Internal Medicine Gastroenterology
DX: D50.9 Iron deficiency anemia, unspecified (principal); K92.1 Melena; R19.7 Diarrhea, unspecified; K63.5 Polyp of colon; K57.30 Diverticulosis of large intestine without perforation or abscess without bleeding; K64.8 Other hemorrhoids; J44.9 Chronic obstructive pulmonary disease, unspecified; I50.9 Heart failure, unspecified; E66.9 Obesity, unspecified; Z68.37 Body mass index [BMI] 37.0-37.9, adult; Z88.5 Allergy status to narcotic agent; Z87.891 Personal history of nicotine dependence; Z79.899 Other long term (current) drug therapy
CPT/HCPCS: 45380; 45385; 88305; 88313; C1773; G0500; J2250; J3010; J7040; Z7512; 99152; 99153; A4620